=== PATIENT | female | born 1935 | race Caucasian/White ===

== ENCOUNTER → 2019-01-01 | Outpatient (CLI) | payer MEDICARE ==
--- NOTE | 2019-01-01 11:41 | CT ---
EXAMINATION TYPE: CT abdomen pelvis w con DATE OF EXAM: 01/01/2019 COMPARISON: None HISTORY: Constipation and weight loss. History of colon cancer CT DLP: 319.9 mGycm Automated exposure control for dose reduction was used. CONTRAST: CT scan of the abdomen pelvis is performed with IV Contrast, patient injected with 80 mL of Isovue 30 0. FINDINGS- LUNG BASES-bilateral lower lobe changes of bronchiectasis. Cardiomegaly noted. Small hiatal hernia se en.. Lower lobe pleural-based density likely postinflammatory. LIVER/GB- No gross abnormality is appreciated. PANCREAS- No gross abnormality is seen. SPLEEN- No gross abnormality is seen. ADRENALS- No gross abnormality is seen. KIDNEYS/BLADDER- no hydronephrosis nephrolithiasis or renal mass. BOWEL-within the pelvis there is a large area of soft tissue density and small amount of fluid on the right. This may be related to bowel wall thickening. Previous surgery in the region is noted. Could not exclude inflammatory or neoplastic process. Soft tissue fullness measures 5.2 cm. Less likely abs cess. Report called to referring clinician. LYMPH NODES-there is soft tissue fullness in the periaortic region on the left on image 21 suggestive of an possible area of lymphadenopathy measuring short axis of 1.3 cm.. OSSEOUS STRUCTURES-scoliosis with multilevel severe degenerative disc disease.. OTHER-changes of bronchiectasis at the lung bases. Chronic interstitial lung disease noted. Atheroscl erotic change of the aorta. No evidence of aneurysm. IMPRESSION- 1. There is a large soft tissue mass in the pelvis measuring 5.5 cm which likely represents severe wa ll thickening of either the cecum or sigmoid colon. There is central linear air which is why a thicke herberth wall is favored. Findings are suspicious for malignancy. 2. Postsurgical changes 3. Bilateral lower lobe interstitial lung disease and changes of bronchiectasis. 4. Significant amount of retained debris within the colon correlate for constipation.
== END | disposition home or self-care (01) ==
LOC: RADCTMAIN 09:11
PROVIDERS: ATTEND Physician Assistant
DX: M79.89 Other specified soft tissue disorders (principal); R63.4 Abnormal weight loss; D50.8 Other iron deficiency anemias; I10 Essential (primary) hypertension; Z85.038 Personal history of other malignant neoplasm of large intestine; Z98.890 Other specified postprocedural states; Z79.899 Other long term (current) drug therapy
CPT/HCPCS: 82565; 84520; 74177; 36415; Q9967

== ENCOUNTER 2019-01-13 08:35 | Day surgery (SDC) | payer MEDICARE ==
[2019-01-08 10:43] VITALS: BMI 17.3
[~2019-01-13 08:35] MED LIST: LACTATED RINGERS 1,000 ML IV SCH
[2019-01-13 09:01] VITALS: RESP 17; TEMP 97
[2019-01-13] MEDS ORDERED: LIDOCAINE 1% INJ 10MG/ML (20 ML MDV) ONE (10:42)
[2019-01-13] MEDS ORDERED: PROPOFOL 10 MG/ML 20 ML VIAL IV ONE (10:42)
--- NOTE | 2019-01-13 10:48 | P.GSHP ---
History of Present Illness H&P Date: 01/13/19 Chief Complaint: Pelvic mass, history of colon cancer This is a 83-year-old female who presents today for colonoscopy. Patient has a previous history of left colon cancer. The patient had low anterior section approximately 10 years ago. Her recent CAT scan shows a questionable mass in the office which could be arising from the cecum or left colon. She presents today for colonoscopy. Past Medical History Past Medical History: Cancer, COPD, CVA/TIA, Hyperlipidemia, Hypertension, Pneumonia Additional Past Medical History / Comment(s): colon ca 2007, skin cancer nose removed, osteoporosis. Skin cancer on chest as of now, states will have it removed soon. States recent CAT scan shows a mass on her colon. Uses oxygen @ home @ 2 L's. History of Any Multi-Drug Resistant Organisms: None Reported Past Surgical History: Bowel Resection, Tonsillectomy Additional Past Surgical History / Comment(s): cataract surgery bilat. Skin ca ncer removed from top of nose. Past Anesthesia/Blood Transfusion Reactions: No Reported Reaction Smoking Status: Former smoker - Past Family History Father Family Medical History: CVA/TIA Additional Family Medical History / Comment(s): AGE 89- HX TB Mother Additional Family Medical History / Comment(s): AT AGE 88 UNK CAUSE Medications and Allergies Home Medications Medication Instructions Recorded Confirmed Type Calcium Carbonate/Vitamin D3 1 tab PO BID 04/21/14 01/08/19 History [Caltrate 600 Plus D3 Tablet] Ergocalciferol [Vitamin D2 50,000 unit PO QMONTH 04/21/14 01/08/19 History (DRISDOL)] Lisinopril [Zestril] 2.5 mg PO DAILY 04/21/14 01/08/19 History Multivitamins, Thera [Multivitamin 1 tab PO DAILY 04/21/14 01/08/19 History (formulary)] Simvastatin [Zocor] 10 mg PO HS 04/21/14 01/08/19 History Aspirin EC [Ecotrin Low Dose] 81 mg PO DAILY #1 tablet. 04/22/14 01/08/19 Rx Allergies Allergy/AdvReac Type Severity Reaction Status Date / Time No Known Allergies Allergy Verified 01/13/19 09:05 Surgical - Exam Vital Signs Temp Pulse Resp BP Pulse Ox 97.0 F L 44 L 17 122/59 97 01/13/19 08:59 01/13/19 08:59 01/13/19 08:59 01/13/19 08:59 01/13/19 08:59 - General well developed, well nourished, no distress - Eyes PERRL - ENT normal pinna - Neck no masses - Respiratory normal expansion - Cardiovascular Rhythm: regular - Abdomen Abdomen: soft, non tender Assessment and Plan Assessment: History of colon cancer, questionable colonic mass, we'll perform colonoscopy.
--- NOTE | 2019-01-13 11:11 | P.OP ---
Date of Procedure: 01/13/19 Preoperative Diagnosis: History of colon cancer Postoperative Diagnosis: Diverticulosis No evidence of recurrent tumor Procedure(s) Performed: Colonoscopy Anesthesia: MAC Surgeon: Mak Colon Pathology: none sent Condition: stable Disposition: PACU Description of Procedure: The patient's placed in the lateral position. She received IV sedation. Digital rectal exam was performed which revealed a few external hemorrhoids. The colorectal anastomosis was palpated. There is no obvious mass in the rectum. This point the colonoscope was placed patient anus passed throughout the colon. There was a large amount of liquid stool in the right colon. The ileocecal valve was not clearly seen because of this. This point scope was withdrawn. The distal ascending colon hepatic flexure transverse colon appeared normal. There was a few scattered diverticula seen. In the descending colon there was no evidence of any tumors. The scope was then brought back through the colorectal anastomosis this appeared to be patent without any evidence of tumor. The scope was then brought back the rectum. This was normal. Scope was withdrawn for patient. Due to the patient's CAT scan finding of a possible pelvic mass a barium enema was ordered in order to evaluate the proximal right colon and cecum.
[2019-01-13 11:29] VITALS: BP 146/73; PULSE 70
--- NOTE | 2019-01-13 16:42 | XR ---
EXAMINATION TYPE: XR abdomen 1V 1306 hours, XR abdomen 1V at 1422 hours DATE OF EXAM: 01/13/2019 Comparison: Correlation CT 01/01/2019 Clinical History: 83-year-old female incomplete colonoscopy, referred for barium enema. Findings: At both time points, despite waiting after patient's morning release from colonoscopy, extensive colo faith air remains. There is a colorectal staple line from prior resection and re-anastomosis. Impression: Consecutive radiographs demonstrating persistent large amount of retained colonic air. Barium enema i s being deferred until there is time for gas to clear.
== END 2019-01-13 12:55 | disposition home or self-care (01) ==
LOC: ORWHC2ENDO 08:35
PROVIDERS: ATTEND Surgery
DX: K57.30 Diverticulosis of large intestine without perforation or abscess without bleeding (principal); E78.5 Hyperlipidemia, unspecified; I10 Essential (primary) hypertension; J44.9 Chronic obstructive pulmonary disease, unspecified; M81.0 Age-related osteoporosis without current pathological fracture; Z86.73 Personal history of transient ischemic attack (TIA), and cerebral infarction without residual deficits; Z87.891 Personal history of nicotine dependence; Z85.038 Personal history of other malignant neoplasm of large intestine; Z79.82 Long term (current) use of aspirin
CPT/HCPCS: 74018; 45378; J2001; J2704

== ENCOUNTER → 2019-01-14 | Outpatient (CLI) | payer MEDICARE ==
--- NOTE | 2019-01-14 10:26 | FL ---
EXAMINATION TYPE: FL barium enema DATE OF EXAM: 01/14/2019 CLINICAL HISTORY: Failed colonoscopy TECHNIQUE: A single contrast barium enema study is performed. COMPARISON: None. FINDINGS: Magazine Journalist view of the abdomen shows overall non-obstructive bowel gas pattern. The colon is ma rkedly redundant. No evidence of any mass or polyp, obstructing or constricting lesion throughout the colon. Sigmoidal diverticulosis without diverticulitis. The terminal ileum was refluxed and appears within normal limits. IMPRESSION: Sigmoid diverticulosis without diverticulitis. No obstructing mass or polypoid lesion shelton ntified.
== END | disposition home or self-care (01) ==
LOC: RADFLMAIN 08:17
PROVIDERS: ATTEND Surgery
DX: K57.30 Diverticulosis of large intestine without perforation or abscess without bleeding (principal)
CPT/HCPCS: 74270

== ENCOUNTER → 2019-02-23 | Outpatient (CLI) | payer MEDICARE ==
--- NOTE | 2019-02-23 13:20 | CT ---
EXAMINATION TYPE: CT abdomen pelvis w con DATE OF EXAM: 02/23/2019 COMPARISON: 01/01/2019 HISTORY: Diverticulosis CT DLP: 559 mGycm Automated exposure control for dose reduction was used. TECHNIQUE: Helical acquisition of images was performed from the lung bases through the pelvis. CONTRAST: Performed with Oral Contrast and with IV Contrast, patient injected with 80 mL of Isovue 300. FINDINGS: LUNG BASES: Re-demonstration of lower lobe bronchiectasis with reticular and nodular densities seen i n the bilateral lung bases, similar to slightly increased when compared to prior exam. Stable small h iatal hernia. Moderate cardiomegaly. LIVER/GB: Stable mild prominence of the common bile duct. Gallbladder appears normal. Liver appears n ormal. PANCREAS: No significant abnormality is seen. SPLEEN: No significant abnormality is seen. ADRENALS: No significant abnormality is seen. KIDNEYS: No significant abnormality is seen. URINARY BLADDER: Urinary bladder is mildly distended. PELVIC ADENOPATHY: None visualized. OSSEOUS STRUCTURES: Degenerative changes are seen throughout the lumbar spine. No acute fracture. BOWEL: Oral contrast is seen in the stomach and the small bowel. Multiple fluid-filled loops of ileu m are seen in the right lower quadrant without evidence of obstruction. Large amount of stool is annita ined within the colon. Previously seen conglomerate of soft tissue masses within the pelvis have decr eased in size with only a small amount of complex fluid or soft tissue remaining along the vesicorect al area and best seen on image 65. The area measures 1.2 x 4.7 cm in AP by transverse dimension. Ther e are postsurgical changes near the rectosigmoid junction, similar to prior. IMPRESSION: DECREASING SIZE OF SOFT TISSUE MASSES WITHIN THE PELVIS WITH RESIDUAL SOFT TISSUE SEEN SUPERIORLY TO THE RECTOSIGMOID JUNCTION NEAR THE POSTOPERATIVE SITE. WHILE THESE FINDINGS MAY BE ON THE BASIS OF RE SOLVING INFECTIOUS OR INFLAMMATORY PROCESS, NEOPLASTIC PROCESS REMAINS WITHIN THE DIFFERENTIAL. FURTH ER EVALUATION WITH DIRECT VISUALIZATION AND/OR PET SCAN SHOULD BE CONSIDERED. INCREASING INTERSTITIAL LUNG DISEASE AT THE BASES. CONSTIPATION.
== END | disposition home or self-care (01) ==
LOC: RADCTMAIN 10:05
PROVIDERS: ATTEND Surgery
DX: K59.00 Constipation, unspecified (principal); R19.09 Other intra-abdominal and pelvic swelling, mass and lump; Z98.890 Other specified postprocedural states
CPT/HCPCS: 36415; 74177; 82565; 84520

== ENCOUNTER 2019-04-26 00:57 | Observation (INO) | payer MEDICARE ==
--- NOTE | 2019-04-26 01:29 | ED ---
General Adult HPI - General Stated complaint: small bowel obstruction Time Seen by Provider: 04/26/19 00:58 - History of Present Illness Initial comments: Dictation was produced using hi5 dictation software. please excuse any grammatical, word or spelling errors. Chief Complaint: 83-year-old female transferred from [facility] for small bowel obstruction. History of Present Illness: 83-year-old female she was transferred via EMS from [facility] for concerns of small bowel obstruction. She initially presented to [facility] for abdominal pain and some nausea. She had a CT performed that showed moderately severe constipation versus partial mechanical small bowel obstruction. An evaluated bedside. She feels okay. She has pain in her bilateral lower abdominal area. She feels well and she has not had any episodes of emesis. Patient reports that she has had a history of abdominal pain for approximately 2 weeks prior to being evaluated at [facility]. She does have history of constipation. Patient has been evaluated by Dr. Colon in the past The ROS documented in this emergency department record has been reviewed and confirmed by me. Those systems with pertinent positive or negative responses have been documented in the HPI. All other systems are other negative and/or noncontributory. PHYSICAL EXAM: General Impression: Alert and oriented x3, not in acute distress HEENT: Normocephalic atraumatic, extra-ocular movements intact, pupils equal and reactive to light bilaterally, mucous membranes moist. Cardiovascular: Heart regular rate and rhythm, S1&S2 audible, no murmurs, rubs or gallops Chest: Lungs clear to auscultation bilaterally, no rhonchi, no wheeze, no rales Abdomen: Bowel sounds present, abdomen soft, diffuse abdominal tenderness, non- distended, no organomegaly Musculoskeletal: Pulses present and equal in all extremities, no peripheral edema Motor: no focal deficits noted Neurological: CN II-XII grossly intact, no focal motor or sensory deficits noted Skin: Intact with no visualized rashes Psych: Normal affect and mood ED course: 58-year-old female transferred from [facility] for bowel obstruction. She and evaluated bedside. She is well-appearing. She does not appear to be in acute distress. She does not have any significant nausea. Abdomen is soft with minimal tenderness to the lower abdominal area. Transfer recommendation was reviewed in its entirety.Vital signs on arrival are unremarkable. Patient's well-appearing. Patient be admitted. Patient be admitted to medicine with general surgeon on consult. - Related Data Home Medications Medication Instructions Recorded Confirmed Calcium Carbonate/Vitamin D3 1 tab PO BID 04/21/14 01/08/19 [Caltrate 600 Plus D3 Tablet] Ergocalciferol [Vitamin D2 50,000 unit PO QMONTH 04/21/14 01/08/19 (DRISDOL)] Lisinopril [Zestril] 2.5 mg PO DAILY 04/21/14 01/08/19 Multivitamins, Thera [Multivitamin 1 tab PO DAILY 04/21/14 01/08/19 (formulary)] Simvastatin [Zocor] 10 mg PO HS 04/21/14 01/08/19 Previous Rx's Medication Instructions Recorded Aspirin EC [Ecotrin Low Dose] 81 mg PO DAILY #1 tablet. 04/22/14 Allergies Allergy/AdvReac Type Severity Reaction Status Date / Time No Known Allergies Allergy Verified 01/13/19 09:05 Review of Systems ROS Statement: Those systems with pertinent positive or pertinent negative responses have been documented in the HPI. ROS Other: All systems not noted in ROS Statement are negative. Past Medical History Past Medical History: Cancer, COPD, CVA/TIA, Hyperlipidemia, Hypertension, P neumonia Additional Past Medical History / Comment(s): colon ca 2007, skin cancer nose removed, osteoporosis. Skin cancer on chest as of now, states will have it removed soon. States recent CAT scan shows a mass on her colon. Uses oxygen @ home @ 2 L's. History of Any Multi-Drug Resistant Organisms: None Reported Past Surgical History: Bowel Resection, Tonsillectomy Additional Past Surgical History / Comment(s): cataract surgery bilat. Skin cancer removed from top of nose. Past Anesthesia/Blood Transfusion Reactions: No Reported Reaction Smoking Status: Former smoker - Past Family History Father Family Medical History: CVA/TIA Additional Family Medical History / Comment(s): AGE 89- HX TB Mother Additional Family Medical History / Comment(s): AT AGE 88 UNK CAUSE Course Vital Signs 04/26/19 01:36 Temperature 97.9 F Pulse Rate 74 Respiratory 18 Rate Blood Pressure 136/67 O2 Sat by Pulse 98 Oximetry Disposition Clinical Impression: Bowel obstruction Disposition: ADMITTED IP TO THIS HOSP Condition: Fair Referrals: Elvin Bell MD [Primary Care Provider] - 1-2 days Decision Time: 01:56
[2019-04-26] MEDS ORDERED: NALOXONE 0.4 MG/ML 1 ML VIAL IV PRN (01:56)
[2019-04-26] MEDS: SODIUM CHLORIDE 0.9% 1,000 ML IV SCH ×2 (02:28→19:23)
--- NOTE | 2019-04-26 10:24 | P.GSCN ---
History of Present Illness Consult date: 04/26/19 History of present illness: CHIEF COMPLAINT: Bowel obstruction HISTORY OF PRESENT ILLNESS: The patient is a 83 year old female transferred from [place] for small bowel obstruction. She reports passing flatus and having bowel movements. She has history of chronic constipation. She denies abdominal pain. Last colonoscopy was within 3 months. She reports nausea. No fevers or chills. She had emesis. She is passing some flatus. PAST MEDICAL HISTORY: See list. PAST SURGICAL HISTORY: See list. MEDICATIONS: See list. ALLERGIES: See list. SOCIAL HISTORY: See list. FAMILY HISTORY: See list. REVIEW OF ORGAN SYSTEMS: CONSTITUTIONAL: No fevers or chills. EYES: Denies any trouble with vision. No glasses. HEENT: No difficulties with hearing. No nosebleeds. No difficulty swallowing. RESPIRATORY: Denies pneumonia. Denies any troubles with breathing or dyspnea on exertion. CARDIOVASCULAR: No chest pain, palpitations, or recent heart attacks. GASTROINTESTINAL: Denies fatty food intolerance. Has change in bowel habits and gas bloat. GENITOURINARY: Past blood in urine or increased urinary frequency. NEUROLOGICAL: Denies any numbness or tingling along the distal extremities. No seizure disorders or headaches. MUSCULOSKELETAL: Has back pain, stiffness or joint arthritis. SKIN: No current skin cancer. No rash. PSYCHIATRIC: Denies current depression or suicidal thoughts. ENDOCRINE: Denies current thyroid disorders. Denies any blood sugar glucose intolerance. HEME/LYMPHATIC: Denies any lumps and bumps around the neck. No recent deep venous thrombosis. ALLERGY/IMMUNOLOGY: No immunoglobulin therapy. No immune deficiencies. BREAST: Denies current breast lumps, pain or nipple discharge. PHYSICAL EXAM: VITALS: Reviewed CONSTITUTIONAL: Well developed and in no acute distress. EYES: Conjuctivae without sclera icterus. Pupils are equally round and reactive to light. Extraocular movements grossly intact. HEAD, EARS, NOSE, THROAT: Moist buccal mucosa. Head is atraumatic, normocephalic. Hears conversational speech. No nasal drainage. NECK: Supple. No JV distention. No thyroidomegaly. RESPIRATORY: Non-labored respirations and equal bilateral excursions. No gross wheezes. CARDIOVASCULAR: Palpable 2+ radial pulses. ABDOMEN: Soft, scaphoid, nontender. Nondistended. LYMPH: No neck lymphadenopathy. No axillary lymphadenopathy. MUSCULOSKELETAL: Nail and fingers with good capillary refill. SKIN: Warm and well perfused with good skin turgor. NEUROLOGIC: Cranial nerves I through XII grossly intact. Sensation upper and extremities intact. No focal or lateralizing signs. PSYCH: Appropriate affect. Alert and oriented to person, place and time. Displays appropriate insight. CLINCAL LABS: None present MEDICAL TEST: Endoscopy reviewed without recurrent colon mass per colonoscopy within last 3 months. RECORDS: previous old records reviewed with chronic constipation and history of colon cancer. STUDIES: Independent review of outside CT scan and CT scan of the abdomen 3 months ago confirms severe constipation. No significant small bowel dilation. Moderate retained stool throughout. No free air. This is my personal interpretation. ASSESSMENT: 1. Chronic constipation 2. Past history of small bowel obstruction PLAN: 1. Start liquid diet. 2. Will need combination of enemas and laxative for severe constipation 3. Recommend AXR for baseline prior to bowel regimen. Thank you for this kind consultation. Past Medical History Past Medical History: Cancer, COPD, CVA/TIA, Hyperlipidemia, Hypertension, Pneumonia Additional Past Medical History / Comment(s): colon ca 2007, skin cancer nose removed, osteoporosis. Skin cancer on chest removed 2019, States recent CAT scan shows a mass on her colon. Uses oxygen @ home @ 2 L's. History of Any Multi-Drug Resistant Organisms: None Reported Past Surgical History: Bowel Resection, Tonsillectomy Additional Past Surgical History / Comment(s): cataract surgery bilat. Skin cancer removed from top of nose. Past Anesthesia/Blood Transfusion Reactions: No Reported Reaction Past Psychological History: No Psychological Hx Reported Smoking Status: Former smoker Past Alcohol Use History: None Reported Additional Past Alcohol Use History / Comment(s): Started smoking at age 23, smoked 1ppd, quit 10 years ago. Past Drug Use History: None Reported - Past Family History Father Family Medical History: CVA/TIA Additional Family Medical History / Comment(s): AGE 89- HX TB Mother Additional Family Medical History / Comment(s): AT AGE 88 UNK CAUSE Medications and Allergies Home Medications Medication Instructions Recorded Confirmed Type Calcium Carbonate/Vitamin D3 1 tab PO BID 04/21/14 04/26/19 History [Caltrate 600 Plus D3 Tablet] Ergocalciferol [Vitamin D2 50,000 unit PO QMONTH 04/21/14 04/26/19 History (DRISDOL)] Lisinopril [Zestril] 2.5 mg PO DAILY 04/21/14 04/26/19 History Multivitamins, Thera [Multivitamin 1 tab PO DAILY 04/21/14 04/26/19 History (formulary)] Simvastatin [Zocor] 10 mg PO HS 04/21/14 04/26/19 History Aspirin EC [Ecotrin Low Dose] 81 mg PO DAILY #1 tablet. 04/22/14 04/26/19 Rx Allergies Allergy/AdvReac Type Severity Reaction Status Date / Time No Known Allergies Allergy Verified 04/26/19 07:58 Surgical - Exam Vital Signs Temp Pulse Resp BP Pulse Ox 97.9 F 74 18 136/67 98 04/26/19 01:36 04/26/19 01:36 04/26/19 01:36 04/26/19 01:36 04/26/19 01:36 Assessment and Plan (1) Bowel obstruction Current Visit: Yes Status: Acute Code(s): K56.609 - UNSP INTESTNL OBST, UNSP TO PARTIAL VERSUS COMPLETE OBST SNOMED Code(s): 85380393
[2019-04-26] MEDS ORDERED: ONDANSETRON 4 MG/2 ML VIAL IVP PRN (10:27)
--- NOTE | 2019-04-26 10:53 | XR ---
EXAMINATION TYPE: XR abdomen 2V , 3 VIEWS DATE OF EXAM ORDERED: 04/26/2019 HISTORY: bowel obstruction. COMPARISON: Previous study dated 09/18/2018. FINDINGS: The lung bases are clear. Heart size upper limits of normal. There is an S-shaped scoliosi s convex to the left in the thoracic region and to the right lumbar region. The abdominal gas pattern is within normal limits. There is no evidence of obstruction or free air. T here is contrast within the bladder from a recent CT scan. There is some stippled calcification in th e left hemipelvis which likely represents fibroid change or residual barium.. IMPRESSION: 1. NONOBSTRUCTIVE BOWEL GAS PATTERN. 2. MODERATELY SEVERE DEGENERATIVE CHANGES WITHIN THE SPINE.
[2019-04-26] MEDS: MAGNESIUM HYDROXIDE 2,400 MG/10 ML CUP PO SCH ×2 (10:55→21:09)
[2019-04-26 12:01] VITALS: BMI 17.8
[2019-04-26] MEDS: CALCIUM CARB-VIT D 500MG-200UN 1 EACH TAB PO SCH (21:09)
[2019-04-26] MEDS: ATORVASTATIN 10 MG TAB PO SCH (21:09)
[2019-04-26] MEDS: ACETAMINOPHEN TAB 325 MG TAB PO PRN (21:10)
--- NOTE | 2019-04-26 22:46 | P.HPIM ---
History of Present Illness H&P Date: 04/26/19 Chief Complaint: Transferred from [facility] for small bowel obstruction Ms. Escobar is an 83-year-old female with a past medical history of hypertension, hyperlipidemia, skin cancer of the nose removed, COPD, CVA/TIA transferred from [facility] for concerns of small bowel obstruction. Patient initially presented to [facility] for nausea and abdominal pain. Patient has history of chronic constipation. She had a CAT scan performed at that facility showing severe constipation versus partial small bowel obstruction and so transferred here. She was admitted through the ER. Since admission patient did not have any vomiting. Surgical consult was placed. Overnight no acute issues reported by the nursing staff. At the time of my evaluation the patient had a bowel movement and she was complaining of mild lower abdominal discomfort. She states that she had a dark-colored bowel movement. Denied having any blood in her stool. Review of Systems REVIEW OF SYSTEMS: PSYCH: No anxiety or depression NEURO:No c/o weakness of the extremties, No facial droop, No speech abnormalities. VASCULAR: Peripheral nervous system within the normal limits no edema HEMATOLOGIC: No history of easy bleeding and bruising . No recent infections . RESPIRATORY: No cough, No SOB, No chest discomfort. IMMUNE: No infections INTEGUMENT: no rashes OPHTHALMOLOGIC: No blurry vision and no eye discharge : No dysuria or hematuria LENS HARDENER: No bleeding PV CARDIAC: No chest pain , shortness of breath , paroxysmal nocturnal dyspnea MUSCULOSKELETAL : No Aches or pains in the joints or muscles. GI: As per HPI. Past Medical History Past Medical History: Cancer, COPD, CVA/TIA, Hyperlipidemia, Hypertension, Pneumonia Additional Past Medical History / Comment(s): colon ca 2007, skin cancer nose removed, osteoporosis. Skin cancer on chest removed 2019, States recent CAT scan shows a mass on her colon. Uses oxygen @ home @ 2 L's. History of Any Multi-Drug Resistant Organisms: None Reported Past Surgical History: Bowel Resection, Tonsillectomy Additional Past Surgical History / Comment(s): cataract surgery bilat. Skin cancer removed from top of nose. Past Anesthesia/Blood Transfusion Reactions: No Reported Reaction Past Psychological History: No Psychological Hx Reported Smoking Status: Former smoker Past Alcohol Use History: None Reported Additional Past Alcohol Use History / Comment(s): Started smoking at age 23, smoked 1ppd, quit 10 years ago. Past Drug Use History: None Reported - Past Family History Father Family Medical History: CVA/TIA Additional Family Medical History / Comment(s): AGE 89- HX TB Mother Additional Family Medical History / Comment(s): AT AGE 88 UNK CAUSE Medications and Allergies Home Medications Medication Instructions Recorded Confirmed Type Calcium Carbonate/Vitamin D3 1 tab PO BID 04/21/14 04/26/19 History [Caltrate 600 Plus D3 Tablet] Ergocalciferol [Vitamin D2 50,000 unit PO QMONTH 04/21/14 04/26/19 History (DRISDOL)] Lisinopril [Zestril] 2.5 mg PO DAILY 04/21/14 04/26/19 History Multivitamins, Thera [Multivitamin 1 tab PO DAILY 04/21/14 04/26/19 History (formulary)] Simvastatin [Zocor] 10 mg PO HS 04/21/14 04/26/19 History Aspirin EC [Ecotrin Low Dose] 81 mg PO DAILY #1 tablet. 04/22/14 04/26/19 Rx Allergies Allergy/AdvReac Type Severity Reaction Status Date / Time No Known Allergies Allergy Verified 04/26/19 07:58 Physical Exam Vitals: Vital Signs Temp Pulse Pulse Resp BP BP Pulse Ox 04/26/19 15:00 97.6 F 77 16 168/75 97 04/26/19 07:00 97.8 F 68 16 107/56 100 04/26/19 03:04 98.4 F 77 16 135/76 97 04/26/19 02:24 77 18 133/64 100 04/26/19 01:36 97.9 F 74 18 136/67 98 Intake and Output 04/26/19 04/26/19 04/26/19 06:59 14:59 22:59 Intake Total 0 Balance 0 Intake: Oral 0 Other: Voiding Method Toilet # Voids 1 2 Weight 47.174 kg 47.174 kg GEN. APPEARANCE: elderly female lying in bed HEENT - No pallor, No icterus . No JVD. RESPIRATORY EXAM: normal lung sounds bilaterally. No wheeze or crackles. CARDIOVASCULAR EXAM: Normal heart sounds. GI/ABDOMINAL EXAM: soft, hyperactive bowel sounds. Mild diffuse tenderness in lower quadrants EXTREMITIES EXAM: No edema NEUROLOGICAL EXAM: alert, oriented X3, no focal deficits SKIN EXAM: warm, dry, intact, normal color. Thrombosis Risk Factor Assmnt - Choose All That Apply Any of the Below Risk Factors Present?: No Other Risk Factors: No Each Risk Factor Represents 3 Points: Age 75 years or older Other congenital or acquired thrombophilia - If yes, enter type in comment: No Thrombosis Risk Factor Assessment Total Risk Factor Score: 3 Thrombosis Risk Factor Assessment Level: Very Low Risk Assessment and Plan Assessment: ASSESSMENT Partial small bowel obstruction Chronic constipation Hypertension Hyperlipidemia History of colon cancer in 2007 Skin cancer of the nose status post removal Osteoporosis History of CVA/TIA PLAN: Patient was sent in for suspicion of small bowel obstruction. Patient just had a bowel movement. Patient has been restarted on all her home medications. Further recommendations to follow depending on the progress of the patient.
[2019-04-26 23:34] LABS: Basophils # (A) 0.1 k/uL (0-0.2); Basophils % (A) 1 %; Eosinophils # (A) 0.1 k/uL (0-0.7); Eosinophils % (A) 1 %; HCT 33.9 % (34.0-46.0); HGB 9.9 gm/dL (11.4-16.0); Hypochromasia Moderate; Lymphocytes % (A) 14 %; MCH 25.9 pg (25.0-35.0); MCHC 29.3 g/dL (31.0-37.0); MCV 88.5 fL (80.0-100.0); Mean Platelet Volume 5.8; Monocytes # (A) 0.4 k/uL (0-1.0); Monocytes % (A) 6 %; Neutrophils # (A) 5.4 k/uL (1.3-7.7); Neutrophils % (A) 76 %; Platelet Count 353 k/uL (150-450); RBC 3.83 m/uL (3.80-5.40); RDW 13.5 % (11.5-15.5)
[2019-04-26 23:46] LABS: Calcium 9.2 mg/dL (8.4-10.2); Potassium 4.9 mmol/L (3.5-5.1)
[2019-04-27] MEDS: SODIUM CHLORIDE 0.9% 1,000 ML IV SCH ×2 (04:13→14:38)
[2019-04-27] MEDS: MAGNESIUM HYDROXIDE 2,400 MG/10 ML CUP PO SCH ×2 (08:07→21:13)
[2019-04-27] MEDS: CALCIUM CARB-VIT D 500MG-200UN 1 EACH TAB PO SCH ×2 (08:07→21:13)
[2019-04-27] MEDS: MULTIVITAMINS, THERA 1 EACH TAB PO SCH (08:07)
[2019-04-27] MEDS: ASPIRIN 81 MG PO SCH (08:07)
[2019-04-27] MEDS: LISINOPRIL 2.5 MG TAB PO SCH (08:07)
--- NOTE | 2019-04-27 15:03 | P.PN ---
Subjective Progress Note Date: 04/27/19 CHIEF COMPLAINT: Constipation HISTORY OF PRESENT ILLNESS: Patient seen and examined at the bedside. She is tolerating diet. She reports having multiple bowel movements. She does report having some increased pain this afternoon upon reexamination with Dr. Colon. PHYSICAL EXAM: VITAL SIGNS: Reviewed. GENERAL: Well-developed in no acute distress. HEENT: No sclera icterus. Extraocular movements grossly intact. Moist buccal mucosa. Head is atraumatic, normocephalic. ABDOMEN: Soft. Nondistended. Nontender. NEUROLOGIC: Alert and oriented. Cranial nerves II through XII grossly intact. ASSESSMENT: 1. Chronic constipation PLAN: 1. Continue diet as tolerated. 2. Dr. Colon recommends holding discharge today and reevaluating tomorrow. Possible discharge home tomorrow. Nurse practitioner note has been reviewed by physician. Signing provider agrees with the documented findings, assessment, and plan of care. Objective - Vital Signs Vital signs: Vital Signs Temp 98.2 F 04/27/19 07:00 Pulse 67 04/27/19 07:00 Resp 17 04/27/19 07:00 BP 125/81 04/27/19 07:00 Pulse Ox 91 L 04/27/19 08:19 Intake & Output 04/26/19 04/27/19 04/27/19 18:59 06:59 18:59 Intake Total 1158 Balance 1158 Weight 47.174 kg Intake: IV 640 Sodium Chloride 0.9% 1, 640 000 ml @ 80 mls/hr IV . [id number] [facility] Rx#:[id number] Oral 518 Other: Voiding Method Toilet Toilet # Voids 2 1 # Bowel Movements 1 - Labs CBC & Chem 7: 04/26/19 23:23 04/26/19 23:23 Labs: Abnormal Lab Results - Last 24 Hours (Table) 04/26/19 04/26/19 Range/Units 23:23 23:23 Hgb 9.9 L (11.4-16.0) gm/dL Hct 33.9 L (34.0-46.0) % MCHC 29.3 L (31.0-37.0) g/dL Carbon Dioxide 35 H (22-30) mmol/L Glucose 102 H (74-99) mg/dL
[2019-04-27] MEDS: ACETAMINOPHEN TAB 325 MG TAB PO PRN (15:32)
--- NOTE | 2019-04-27 17:32 | P.PN ---
Subjective Progress Note Date: 04/27/19 Principal diagnosis: Partial small bowel obstruction/ chronic constipation Ms. Escobar is an 83-year-old female with a past medical history of hypertension, hyperlipidemia, skin cancer of the nose removed, COPD, CVA/TIA transferred from [facility] for concerns of small bowel obstruction. Patient initially presented to [facility] for nausea and abdominal pain. Patient has history of chronic constipation. She had a CAT scan performed at that facility showing severe constipation versus partial small bowel obstruction and so transferred here. She was admitted through the ER. Since admission patient did not have any vomiting. Surgical consult was placed. Patient was started on a bowel regimen and she had a small bowel movement yeste rday. This morning she still continues to have mild abdominal discomfort. Denies having any nausea or vomiting. She has been passing flatus. Patient's vitals have been stable over the past 24 hours and her labs from this morning show a hemoglobin of 9.9 and her electrolytes are within normal limits. Patient denies having any chest pain or palpitations. She denies having any difficulty in breathing and she is on 2 L of oxygen at home and has been stable on it now. Active Medications Acetaminophen (Tylenol Tab) 650 mg PO Q4HR PRN PRN Reason: Fever and/ or Pain Last Admin: 04/27/19 15:32 Dose: 650 mg Documented by: Aspirin (Aspirin) 81 mg PO DAILY [facility] Last Admin: 04/27/19 08:07 Dose: 81 mg Documented by: Atorvastatin Calcium (Lipitor) 10 mg PO HS [facility] Last Admin: 04/26/19 21:09 Dose: 10 mg Documented by: Calcium Carbonate (Oscal 500+D) 1 each PO BID [facility] Last Admin: 04/27/19 08:07 Dose: 1 each Documented by: Ergocalciferol (Vitamin D2) 50,000 unit PO QMONTH [facility] Sodium Chloride (Saline 0.9%) 1,000 mls @ 80 mls/hr IV .[id number] [facility] Last Admin: 04/27/19 14:38 Dose: 80 mls/hr Documented by: Lisinopril (Zestril) 2.5 mg PO DAILY [facility] Last Admin: 04/27/19 08:07 Dose: 2.5 mg Documented by: Magnesium Hydroxide (Milk Of Magnesia) 2,400 mg PO BID [facility] Last Admin: 04/27/19 08:07 Dose: 2,400 mg Documented by: Multivitamins (Theragran) 1 each PO DAILY [facility] Last Admin: 04/27/19 08:07 Dose: 1 each Documented by: Naloxone HCl (Narcan) 0.2 mg IV Q2M PRN PRN Reason: Opioid Reversal Ondansetron HCl (Zofran) 4 mg IVP Q6HR PRN PRN Reason: Nausea Last Admin: 04/26/19 14:38 Dose: 4 mg Documented by: Objective - Vital Signs Vital signs: Vital Signs Temp 98.0 F 04/27/19 14:51 Pulse 73 04/27/19 14:51 Resp 18 04/27/19 14:51 BP 123/61 04/27/19 14:51 Pulse Ox 96 04/27/19 14:51 Intake & Output 04/26/19 04/27/19 04/27/19 18:59 06:59 18:59 Intake Total 1158 Balance 1158 Weight 47.174 kg Intake: IV 640 Sodium Chloride 0.9% 1, 640 000 ml @ 80 mls/hr IV . [id number] [facility] Rx#:[id number] Oral 518 Other: Voiding Method Toilet Toilet # Voids 2 1 # Bowel Movements 1 - Exam GEN. APPEARANCE: elderly female lying in bed HEENT - No pallor, No icterus . No JVD. RESPIRATORY EXAM: normal lung sounds bilaterally. No wheeze or crackles. CARDIOVASCULAR EXAM: Normal heart sounds. GI/ABDOMINAL EXAM: soft, hypoactive bowel sounds. Mild diffuse tenderness in lower quadrants EXTREMITIES EXAM: No edema NEUROLOGICAL EXAM: alert, oriented X3, no focal deficits SKIN EXAM: warm, dry, intact, normal color. - Labs CBC & Chem 7: 04/26/19 23:23 04/26/19 23:23 Labs: Abnormal Lab Results - Last 24 Hours (Table) 04/26/19 04/26/19 Range/Units 23:23 23:23 Hgb 9.9 L (11.4-16.0) gm/dL Hct 33.9 L (34.0-46.0) % MCHC 29.3 L (31.0-37.0) g/dL Carbon Dioxide 35 H (22-30) mmol/L Glucose 102 H (74-99) mg/dL Assessment and Plan Assessment: ASSESSMENT Partial small bowel obstruction/Chronic constipation Hypertension Hyperlipidemia History of colon cancer in 2007 Skin cancer of the nose status post removal Osteoporosis History of CVA/TIA PLAN: Patient had a small bowel movement yesterday. She still has some abdominal discomfort, so surgery recommended reevaluation tomorrow. Patient has been restarted on all her home medications that are being continued. Further r ecommendations to follow depending on the progress of the patient. Anticipate discharge in the next 24 hours.
[2019-04-27] MEDS: ATORVASTATIN 10 MG TAB PO SCH (21:13)
[2019-04-28] MEDS: SODIUM CHLORIDE 0.9% 1,000 ML IV SCH ×2 (05:32→08:16)
[2019-04-28 06:40] LABS: Basophils % (A) 0 %; Eosinophils # (A) 0.1 k/uL (0-0.7); Eosinophils % (A) 1 %; HCT 33.6 % (34.0-46.0); Hypochromasia Marked; Lymphocytes # (A) 1.1 k/uL (1.0-4.8); Lymphocytes % (A) 13 %; MCH 26.6 pg (25.0-35.0); MCHC 29.6 g/dL (31.0-37.0); MCV 89.8 fL (80.0-100.0); Monocytes # (A) 0.5 k/uL (0-1.0); Monocytes % (A) 5 %; Neutrophils % (A) 79 %; Platelet Count 350 k/uL (150-450); RBC 3.74 m/uL (3.80-5.40); RDW 13.5 % (11.5-15.5); WBC 8.9 k/uL (3.8-10.6)
[2019-04-28] MEDS: MULTIVITAMINS, THERA 1 EACH TAB PO SCH (08:15)
[2019-04-28] MEDS: CALCIUM CARB-VIT D 500MG-200UN 1 EACH TAB PO SCH ×2 (08:15→21:49)
[2019-04-28] MEDS: ASPIRIN 81 MG PO SCH (08:15)
[2019-04-28] MEDS: LISINOPRIL 2.5 MG TAB PO SCH (08:15)
[2019-04-28] MEDS: MAGNESIUM HYDROXIDE 2,400 MG/10 ML CUP PO SCH ×2 (08:15→21:49)
[2019-04-28] MEDS: IOPAMIDOL CONTRAST (ORAL USE) VIAL PO PRN ×2 (10:02→11:00)
--- NOTE | 2019-04-28 11:58 | P.PN ---
Subjective Progress Note Date: 04/28/19 CHIEF COMPLAINT: Constipation HISTORY OF PRESENT ILLNESS: Patient seen and examined at the bedside. She is tolerating diet. She reports having bowel movements. Pain has improved since yesterday PHYSICAL EXAM: VITAL SIGNS: Reviewed. GENERAL: Well-developed in no acute distress. HEENT: No sclera icterus. Extraocular movements grossly intact. Moist buccal mucosa. Head is atraumatic, normocephalic. ABDOMEN: Soft. Nondistended. Nontender. NEUROLOGIC: Alert and oriented. Cranial nerves II through XII grossly intact. ASSESSMENT: 1. Chronic constipation PLAN: 1. Continue diet as tolerated. 2. Dr. Colon recommends CT abdomen pelvis with oral contrast due to patients history of obstruction and chronic constipation Nurse practitioner note has been reviewed by physician. Signing provider agrees with the documented findings, assessment, and plan of care. Objective - Vital Signs Vital signs: Vital Signs Temp 97.6 F 04/28/19 07:00 Pulse 75 04/28/19 07:00 Resp 18 04/28/19 07:00 BP 131/71 04/28/19 07:00 Pulse Ox 96 04/28/19 07:00 Intake & Output 04/27/19 04/28/19 04/28/19 18:59 06:59 18:59 Intake Total 1158 480 118 Balance 1158 480 118 Intake: IV 640 480 Sodium Chloride 0.9% 1, 640 480 000 ml @ 80 mls/hr IV . [id number] [facility] Rx#:[id number] Oral 518 118 Other: Voiding Method Toilet Toilet Toilet # Voids 1 1 # Bowel Movements 1 1 - Labs CBC & Chem 7: 04/28/19 06:08 04/26/19 23:23 Labs: Abnormal Lab Results - Last 24 Hours (Table) 04/28/19 Range/Units 06:08 RBC 3.74 L (3.80-5.40) m/uL Hgb 10.0 L (11.4-16.0) gm/dL Hct 33.6 L (34.0-46.0) % MCHC 29.6 L (31.0-37.0) g/dL
--- NOTE | 2019-04-28 14:19 | CT ---
EXAMINATION TYPE: CT abdomen pelvis wo con DATE OF EXAM: 04/28/2019 COMPARISON: CT 02/23/2019, 04/25/2019 HISTORY: constipation CT DLP: 320.8 mGycm Automated exposure control for dose reduction was used. TECHNIQUE: Helical acquisition of images from the lung bases through the pelvis. FINDINGS: LUNG BASES: No significant change is appreciated. Suspect there may be mucus plugging present, extens tam right lower lobe bronchiectasis suspected, possibly some mild inflammatory change or scarring antolin ng the left hemidiaphragm, no pleural or pericardial effusion. There is a sizable hiatal hernia prese nt. Lack of intravenous contrast could compromise sensitivity. Coronary artery calcifications are pre sent. AORTA: No significant abnormality is appreciated. LIVER/GB: No significant abnormality is appreciated. PANCREAS: No significant abnormality is seen. SPLEEN: No significant abnormality is seen. ADRENALS: No significant abnormality is seen. KIDNEYS: No significant abnormality is seen. REPRODUCTIVE ORGANS: No significant abnormality is seen. URINARY BLADDER: No significant abnormality is seen. BOWEL: There is extensive retained fecal debris present throughout the distribution of the colon. Po stop changes are noted at the rectosigmoid junction, there is abnormal increased soft tissue at this level. Difficult to exclude a mucosal or annular lesion. FREE AIR: No Free Air is visible. ASCITES: None visible. PELVIC ADENOPATHY: None visualized. RETROPERITONEAL ADENOPATHY: No Retroperitoneal Adenopathy visible. OSSEOUS STRUCTURES: There is a marked scoliosis. Multilevel degenerative disc disease, facet arthrop athy changes present. IMPRESSION: FINDINGS SUGGEST DISTAL COLONIC OBSTRUCTION, MARKED FECAL RETENTION. PROBABLE BRONCHIECTASIS IN RETAI PRASANTH SECRETIONS IN THE RIGHT LOWER LOBE. NONCONTRAST EXAM.
[2019-04-28] MEDS ORDERED: IPRATROPIUM-ALBUTEROL 3 ML NEB INHALATION PRN (14:56)
[2019-04-28] MEDS ORDERED: SENNOSIDES 8.6 MG TAB PO PRN (14:57)
--- NOTE | 2019-04-28 15:03 | CDI ---
Documentation Clarification Form Date: 04/28/2019 2:51:49 PM From: Meghan Underwood RN CCDS Admit Date: 04/26/2019 1:56:00 AM Patient Name: Nina Escobar Visit Number: [id number] Discharge Date: ATTENTION: The Clinical Documentation Specialists (CDI) and [facility] Coding Staff appreciate your assistance in clarifying documentation. Please respond to the clarification below the line at the bottom and electronically sign. The CDI & [facility] Coding staff will review the response and follow-up if needed. Please note: Queries are made part of the Legal Health Record. If you have any questions, please contact the author of this message via ITS. Dr. Toña Thibodeaux Per your Progress note 04/27/2019 She denies having any difficulty in breathing and she is on 2L oxygen at home and has been stable on it now. History/Risk Factors: 83-year-old female presents to ED as a Transfer from [facility] for abdominal pain with small bowel obstruction. Medical History COPD Tobacco use: Started smoking at age 23, smoked 1pp, quit 10 years ago Home oxygen: 2L Clinical Indicators: Vital signs:04/27/2019 123/61 73 98.0 18 96% 2L Lung/Breathing assessment: 04/27/2019 breathing assessment Normal lung sounds bilaterally. No wheeze or crackles. Treatment: 2L Oxygen via nasal cannula In your professional opinion, can you please clarify if these findings signify one of the following conditions? * Chronic Respiratory Failure * Other Diagnosis, please specify * Unable to determine (Last Query Form Revision: March 2019) Chronic Respiratory Failure MTDD
[2019-04-28] MEDS: IPRATROPIUM-ALBUTEROL 3 ML NEB INHALATION SCH ×2 (16:14→20:47)
--- NOTE | 2019-04-28 17:31 | P.PN ---
Subjective 83-year-old female with a past medical history of hypertension, hyperlipidemia, skin cancer of the nose removed, COPD, CVA/TIA transferred from [facility] for concerns of small bowel obstruction. Patient initially presented to [facility] for nausea and abdominal pain. Patient has history of chronic constipation. She had a CAT scan performed at that facility showing severe constipation versus partial small bowel obstruction and so transferred here. She was admitted through the ER. Since admission patient did not have any vomiting. Surgical consult was placed. Patient was started on a bowel regimen and she had a small bowel movement yesterday. This morning she still continues to have mild abdominal discomfort. Denies having any nausea or vomiting. She has been passing flatus. Patient's vitals have been stable over the past 24 hours and her labs from this morning show a hemoglobin of 9.9 and her electrolytes are within normal limits. Patient denies having any chest pain or palpitations. She denies having any difficulty in breathing and she is on 2 L of oxygen at home and has been stable on it now. 04/28/2019 Patient was started on diet clear liquid patient does have bowel sounds had a small bowel movement no nausea no vomiting. Patient appears to have constipation will use and now for that. Objective - Vital Signs Vital signs: Vital Signs Temp 98.0 F 04/28/19 15:00 Pulse 78 04/28/19 16:26 Resp 17 04/28/19 15:00 BP 123/84 04/28/19 15:00 Pulse Ox 98 04/28/19 15:00 Intake & Output 04/27/19 04/28/19 04/28/19 18:59 06:59 18:59 Intake Total 1158 480 118 Balance 1158 480 118 Intake: IV 640 480 Sodium Chloride 0.9% 1, 640 480 000 ml @ 80 mls/hr IV . [id number] [facility] Rx#:[id number] Oral 518 118 Other: Voiding Method Toilet Toilet Toilet # Voids 1 1 # Bowel Movements 1 1 - Exam PHYSICAL EXAMINATION: GENERAL: The patient is alert and oriented x3, not in any acute distress. 11 built elderly female HEENT: Pupils are round and equally reacting to light. EOMI. No scleral icterus. No conjunctival pallor. Normocephalic, atraumatic. No pharyngeal erythema. No thyromegaly. CARDIOVASCULAR: S1 and S2 present. No murmurs, rubs, or gallops. PULMONARY: Chest is clear to auscultation, no wheezing or crackles. ABDOMEN: Soft, nontender, nondistended, normoactive bowel sounds. No palpable organomegaly. MUSCULOSKELETAL: No joint swelling or deformity. EXTREMITIES: No cyanosis, clubbing, or pedal edema. NEUROLOGICAL: Gross neurological examination did not reveal any focal deficits. SKIN: No rashes. - Labs CBC & Chem 7: 04/28/19 06:08 04/26/19 23:23 Labs: Abnormal Lab Results - Last 24 Hours (Table) 04/28/19 Range/Units 06:08 RBC 3.74 L (3.80-5.40) m/uL Hgb 10.0 L (11.4-16.0) gm/dL Hct 33.6 L (34.0-46.0) % MCHC 29.6 L (31.0-37.0) g/dL Assessment and Plan Plan: Partial small bowel obstruction/Chronic constipation, we will use senna. Patient was started on diet will advance as tolerated to possibly of discharge tomorrow Hypertension Hyperlipidemia History of colon cancer in 2007 Skin cancer of the nose status post removal Osteoporosis History of CVA/TIA
[2019-04-28] MEDS: ATORVASTATIN 10 MG TAB PO SCH (21:49)
[2019-04-29] MEDS: LISINOPRIL 2.5 MG TAB PO SCH (07:52)
[2019-04-29] MEDS: MAGNESIUM HYDROXIDE 2,400 MG/10 ML CUP PO SCH ×2 (07:52→20:40)
[2019-04-29] MEDS: MULTIVITAMINS, THERA 1 EACH TAB PO SCH (07:52)
[2019-04-29] MEDS: ASPIRIN 81 MG PO SCH (07:52)
[2019-04-29] MEDS: CALCIUM CARB-VIT D 500MG-200UN 1 EACH TAB PO SCH ×2 (07:52→20:40)
[2019-04-29] MEDS: IPRATROPIUM-ALBUTEROL 3 ML NEB INHALATION SCH ×4 (08:02→19:59)
[2019-04-29] MEDS: LACTULOSE 20 GM/30 ML CUP PO SCH ×5 (09:35→17:34)
--- NOTE | 2019-04-29 11:24 | P.PN ---
Subjective Progress Note Date: 04/29/19 CHIEF COMPLAINT: Constipation HISTORY OF PRESENT ILLNESS: Patient seen and examined at the bedside. Patient underwent CT yesterday revealing extensive retained fecal debris and findings suggestive of distal colonic obstruction. Patient received 3 soap suds enemas overnight. She reports having multiple bowel movements. She denies nausea or vomiting. Denies abdominal pain. PHYSICAL EXAM: VITAL SIGNS: Reviewed. GENERAL: Well-developed in no acute distress. HEENT: No sclera icterus. Extraocular movements grossly intact. Moist buccal mucosa. Head is atraumatic, normocephalic. ABDOMEN: Soft. Nondistended. Nontender. NEUROLOGIC: Alert and oriented. Cranial nerves II through XII grossly intact. ASSESSMENT: 1. Chronic constipation 2. Distal colonic obstruction secondary to fecal impaction PLAN: 1. Continue liquid diet 2. Patient to undergo barium enema to further evaluate colonic obstruction Nurse practitioner note has been reviewed by physician. Signing provider agrees with the documented findings, assessment, and plan of care. Objective - Vital Signs Vital signs: Vital Signs Temp 98.4 F 04/29/19 07:00 Pulse 79 04/29/19 08:24 Resp 20 04/29/19 08:02 BP 137/73 04/29/19 07:00 Pulse Ox 96 04/29/19 08:02 Intake & Output 04/28/19 04/29/19 04/29/19 18:59 06:59 18:59 Intake Total 236 Balance 236 Intake: Oral 236 Other: Voiding Method Toilet Toilet # Voids 1 2 # Bowel Movements 1 3 - Labs CBC & Chem 7: 04/28/19 06:08 04/26/19 23:23
--- NOTE | 2019-04-29 12:20 | P.PN ---
Subjective Progress Note Date: 04/29/19 Principal diagnosis: 83-year-old female with a past medical history of hypertension, hyperlipidemia, skin cancer of the nose removed, COPD, CVA/TIA transferred from [facility] for concerns of small bowel obstruction. Patient initially presented to [facility] for nausea and abdominal pain. Patient has history of chronic constipation. She had a CAT scan performed at that facility showing severe constipation versus partial small bowel obstruction and so transferred here. She was admitted through the ER. Since admission patient did not have any vomiting. Surgical consult was placed. Patient was started on a bowel regimen and she had a small bowel movement yesterday. This morning she still continues to have mild abdominal discomfort. Denies having any nausea or vomiting. She has been passing flatus. Patient's vitals have been stable over the past 24 hours and her labs from this morning show a hemoglobin of 9.9 and her electrolytes are within normal limits. Patient denies having any chest pain or palpitations. She denies having any difficulty in breathing and she is on 2 L of oxygen at home and has been stable on it now. 04/28/2019 Patient was started on diet clear liquid patient does have bowel sounds had a small bowel movement no nausea no vomiting. Patient appears to have constipation will use and now for that. 04/29/2019 Patient is sitting up in bed in no acute distress. She states that she would like to go home today. Surgery and they are recommending one more day and was given an order for lactulose 4 times to increase bowel movements. Patient states that she has been having bowel movements and passing gas after she was given an enema yesterday. Patient denies any nausea or vomiting and is tolerating diet. Diet has been advanced. Patient is up to the bathroom with no difficulties. Patient is currently on 2 L of oxygen via nasal cannula and that is her baseline at home. Patient states that she does live at home with her daughter and would like to go there today. Currently patient denies any chest pain, shortness of breath, or palpitations at this time. Patient is afebrile. No acute overnight issues. Objective - Vital Signs Vital signs: Vital Signs Temp 98.4 F 04/29/19 07:00 Pulse 78 04/29/19 11:21 Resp 20 04/29/19 08:02 BP 137/73 04/29/19 07:00 Pulse Ox 96 04/29/19 08:02 Intake & Output 04/28/19 04/29/19 04/29/19 18:59 06:59 18:59 Intake Total 236 Balance 236 Weight 47.174 kg Intake: Oral 236 Other: Voiding Method Toilet Toilet # Voids 1 2 # Bowel Movements 1 3 - Exam GENERAL: The patient is alert and oriented x3, not in any acute distress. Thin built elderly female. Vital signs are stable. HEENT: Pupils are round and equally reacting to light. EOMI. No scleral icterus. No conjunctival pallor. Normocephalic, atraumatic. No pharyngeal erythema. No thyromegaly. CARDIOVASCULAR: S1 and S2 present. No murmurs, rubs, or gallops. PULMONARY: Chest is clear to auscultation, no wheezing or crackles. ABDOMEN: Soft, nontender, nondistended, normoactive bowel sounds. No palpable organomegaly. MUSCULOSKELETAL: No joint swelling or deformity. EXTREMITIES: No cyanosis, clubbing, or pedal edema. NEUROLOGICAL: Gross neurological examination did not reveal any focal deficits. SKIN: No rashes. - Labs CBC & Chem 7: 04/28/19 06:08 04/26/19 23:23 Assessment and Plan Assessment: Partial small bowel obstruction/Chronic constipation, we will use senna. Patient was started on diet will advance as tolerated. Surgery is following. An order was written for lactulose. Hypertension Hyperlipidemia History of colon cancer in 2007 Skin cancer of the nose status post removal Osteoporosis History of CVA/TIA Recommendations and discussion: Recommend continue current medications, management, and symptomatic treatment. Will continue to monitor closely. Per surgery recommendations patient was given lactulose to increase bowel movements. She did have enemas yesterday with 1-2 bowel movements. An order for a barium enema was placed to evaluate for possible obstruction. Will await report. Patient states that she would like to go home today. Further recommendations to follow. Guarded prognosis. Possible discharge in 24 hours.
--- NOTE | 2019-04-29 15:24 | FL ---
EXAMINATION TYPE: FL barium enema DATE OF EXAM: 04/29/2019 COMPARISON: Barium enema from January 14, 2019. CT abdomen and pelvis from yesterday. HISTORY: Constipation for days. History of colon cancer. Rule out obstruction. TECHNIQUE: A single contrast barium enema study is performed as requested to rule out obstruction. T otal of 39 seconds of fluoroscopic time was utilized. 21 spot images are saved to PACS. FINDINGS: Manager Of Operations view of the abdomen shows redemonstrates surgical change throughout the pelvis. Over all nonobstructive bowel gas pattern. Scoliotic curvature with multilevel spurring and disc space cindy rowing throughout the lumbar spine. There is only successful filling to the hepatic flexure at which point patient cannot tolerate retrog rade enema anymore and expelled the enema tip. No obstructing or constricting lesion is clearly evide nt. Some mucosal irregularity near site of sutures in the mid to distal sigmoid colon is present. Thi s should be correlated with direct visualization when patient is more clinically stable or has comple te resolution of constipation. Some diverticula in the proximal to mid sigmoid colon incidentally not ed. IMPRESSION: As above.
[2019-04-29] MEDS: ATORVASTATIN 10 MG TAB PO SCH (20:40)
[2019-04-30] MEDS: IPRATROPIUM-ALBUTEROL 3 ML NEB INHALATION SCH ×2 (07:06→11:00)
[2019-04-30 07:27] VITALS: BP 132/74; PULSE 69; RESP 16; TEMP 98.5
[2019-04-30] MEDS: LISINOPRIL 2.5 MG TAB PO SCH (10:05)
[2019-04-30] MEDS: MAGNESIUM HYDROXIDE 2,400 MG/10 ML CUP PO SCH (10:05)
[2019-04-30] MEDS: MULTIVITAMINS, THERA 1 EACH TAB PO SCH (10:05)
[2019-04-30] MEDS: ASPIRIN 81 MG PO SCH (10:05)
[2019-04-30] MEDS: CALCIUM CARB-VIT D 500MG-200UN 1 EACH TAB PO SCH (10:05)
--- NOTE | 2019-04-30 15:16 | P.PN ---
Subjective Progress Note Date: 04/30/19 CHIEF COMPLAINT: Constipation HISTORY OF PRESENT ILLNESS: Patient seen and examined at the bedside. Patient denies abdominal pain. Denies nausea or vomiting. Patient has been tolerating full liquid diet. She has been having multiple bowel movements. PHYSICAL EXAM: VITAL SIGNS: Reviewed. GENERAL: Well-developed in no acute distress. HEENT: No sclera icterus. Extraocular movements grossly intact. Moist buccal mucosa. Head is atraumatic, normocephalic. ABDOMEN: Soft. Nondistended. Nontender. NEUROLOGIC: Alert and oriented. Cranial nerves II through XII grossly intact. ASSESSMENT: 1. Chronic constipation 2. Distal colonic obstruction secondary to fecal impaction PLAN: 1. Continue current diet 2. Patient is stable for discharge home today from a surgical standpoint. Recommend daily MiraLAX. Also recommend lactulose when necessary for constipation. Nurse practitioner note has been reviewed by physician. Signing provider agrees with the documented findings, assessment, and plan of care. Objective - Vital Signs Vital signs: Vital Signs Temp 98.5 F 04/30/19 07:00 Pulse 68 04/30/19 07:18 Resp 16 04/30/19 07:00 BP 132/74 04/30/19 07:00 Pulse Ox 96 04/30/19 07:00 Intake & Output 04/29/19 04/30/19 04/30/19 18:59 06:59 18:59 Intake Total 200 Balance 200 Weight 47.174 kg Intake: Oral 200 Other: # Voids 3 2 # Bowel Movements 5 - Labs CBC & Chem 7: 04/28/19 06:08 04/26/19 23:23
--- NOTE | 2019-05-01 09:34 | P.DS ---
Providers Date of admission: 04/26/19 01:56 Expected date of discharge: 04/30/19 Attending physician: Joaquina Tinoco Consults: 04/26/19 01:57 Consult Physician Routine Consulting Provider: Mak Colon Consult Reason/Comments: sbo Do you want consulting provider notified?: Yes Primary care physician: [facility] Course: Final diagnosis Partial small bowel obstruction, chronic constipation Hypertension Hyperlipidemia History of colon cancer in 2007 Skin cancer of the nose status post removal Osteoporosis History of CVA/TIA Discharge disposition Patient is being discharged in a stable condition with guarded prognosis to home and will follow-up with surgery in the outpatient setting in 1-2 weeks as scheduled. Patient was given MiraLAX upon discharge. Total time taken is 35 minutes. History of present illness This is an 83-year-old female was initially at [facility] for nausea and abdominal pain and was transferred here and was being closely monitored. On CAT scan it showed severe constipation versus partial small bowel obstruction. Surgery was consulted. Patient does have a history of chronic constipation. Patient was started on a bowel regimen during hospitalization and had small bowel movement with some mild abdominal discomfort and was able to pass gas. No interventions done at this time and treatment conservatively. A barium enema was done that was negative as patient continued to have bowel movements after a few soapsuds enemas and a couple doses of lactulose. Patient is feeling much better and condition is stable with much improvement. She would like to go home. Patient will follow-up with in the outpatient setting in 1-2 weeks. Patient denies any chest pain, shortness of breath, or palpitations at this time. Patient is afebrile. Patient denies any nausea or vomiting and is tolerating a clear liquid diet. Patient may slowly advance as tolerated. Patient was given MiraLAX upon discharge as needed. Guarded prognosis. On exam vital signs are stable. Temp is 98.5F, pulse 69, respirations are 16, blood pressure is 132/74, oxygen saturation is 96% on 2 L via nasal cannula. Cardio S1 and S2 are present. Respiratory system shows clear to auscultation. Abdomen is soft, thin, nontender. Nervous system shows no focal deficits and gait is steady. Please refer to medication reconciliation sheet for a list of medications. Patient Condition at Discharge: Fair Plan - Discharge Summary Discharge Rx Participant: No New Discharge Prescriptions: New Polyethylene Glycol 3350 [Miralax] 17 gm PO DAILY #30 packet Lactulose [Cephulac] 20 gm PO BID PRN #500 ml PRN Reason: Constipation Continue Simvastatin [Zocor] 10 mg PO HS Multivitamins, Thera [Multivitamin (formulary)] 1 tab PO DAILY Lisinopril [Zestril] 2.5 mg PO DAILY Calcium Carbonate/Vitamin D3 [Caltrate 600 Plus D3 Tablet] 1 tab PO BID Ergocalciferol [Vitamin D2 (DRISDOL)] 50,000 unit PO QMONTH Aspirin EC [Ecotrin Low Dose] 81 mg PO DAILY #1 tablet.dr Discharge Medication List Calcium Carbonate/Vitamin D3 [Caltrate 600 Plus D3 Tablet] 1 tab PO BID 04/21/14 [History] Ergocalciferol [Vitamin D2 (DRISDOL)] 50,000 unit PO QMONTH 04/21/14 [History] Lisinopril [Zestril] 2.5 mg PO DAILY 04/21/14 [History] Multivitamins, Thera [Multivitamin (formulary)] 1 tab PO DAILY 04/21/14 [History] Simvastatin [Zocor] 10 mg PO HS 04/21/14 [History] Aspirin EC [Ecotrin Low Dose] 81 mg PO DAILY #1 tablet. 04/22/14 [Rx] Lactulose [Cephulac] 20 gm PO BID PRN #500 ml 04/30/19 [Rx] Polyethylene Glycol 3350 [Miralax] 17 gm PO DAILY #30 packet 04/30/19 [Rx] Follow up Appointment(s)/Referral(s): Elvin Bell MD [Primary Care Provider] - 05/01/19 11:30 am Mak Colon MD [STAFF PHYSICIAN] - 05/07/19 4:10 pm Patient Instructions/Handouts: Clear Liquid Diet (DC), Bowel Obstruction (DC) Activity/Diet/Wound Care/Special Instructions: Activity Limited until follow-up Continue with clear liquid diet and advance as tolerated Follow-up with primary care provider this week Follow-up with surgery as discussed and scheduled Discharge Disposition: HOME SELF-CARE
[2019-05-15] MEDS ORDERED: ERGOCALCIFEROL 50,000 UNIT CAP PO SCH (09:00)
== END 2019-04-30 13:39 | disposition home or self-care (01) ==
LOC: EC 00:57 → INTOOBSV 01:56 → UNDOADMIN 01:56 → 4SSUR 01:56 → UNDODISIN 04-30 13:39
PROVIDERS: ADMIT Hospitalist; ATTEND Hospitalist
DX: K56.690 Other partial intestinal obstruction (principal); J96.10 Chronic respiratory failure, unspecified whether with hypoxia or hypercapnia; K56.41 Fecal impaction; Z85.038 Personal history of other malignant neoplasm of large intestine; Z85.828 Personal history of other malignant neoplasm of skin; E78.5 Hyperlipidemia, unspecified; I10 Essential (primary) hypertension; J44.9 Chronic obstructive pulmonary disease, unspecified; M81.0 Age-related osteoporosis without current pathological fracture; Z79.82 Long term (current) use of aspirin; Z79.899 Other long term (current) drug therapy; Z86.73 Personal history of transient ischemic attack (TIA), and cerebral infarction without residual deficits; Z87.891 Personal history of nicotine dependence; Z99.81 Dependence on supplemental oxygen; Z98.42 Cataract extraction status, left eye; Z98.41 Cataract extraction status, right eye; Z82.3 Family history of stroke
CPT/HCPCS: 96361 ×2; 96374; 99284; 94640 ×5; 94760 ×2; 93005; 80048; 85025 ×2; 74270; 74019; 74176; G0378 ×5; J2405; 96360

== ENCOUNTER 2019-10-15 22:15 | Inpatient (IN) | payer MEDICARE ==
[2019-10-15] MEDS ORDERED: SODIUM CHLORIDE 0.9% 1,000 ML IV ONE (22:39)
[2019-10-15] MEDS ORDERED: PANTOPRAZOLE 40 MG/10 ML VIAL IVP STA (22:39)
--- NOTE | 2019-10-15 22:42 | ED ---
Recheck HPI - General Chief Complaint: Abdominal Pain Stated Complaint: Bowel obstruction Time Seen by Provider: 10/15/19 22:16 Source: patient, EMS, RN notes reviewed, old records reviewed Mode of arrival: EMS Limitations: no limitations - History of Present Illness Initial Comments: This is an 84-year-old female presents to outside facility. Severe abdominal pain nausea and vomiting. History of similar complaint. History of colon cancer history of resection, patient states he feels a prior small bowel obstruction over symptoms here in the ER [facility] hospital much improved spoke with transferring physician patient has small bowel structure at their facility NG tube was placed and patient was placed in transfer patient suffers no complaints EMS providers no other significant history MD Complaint: other (Patient sent DF secondary to small bowel obstruction surgeon at this hospital) -: hour(s) Returns Today for: persistent/worsening pain related to initial visit, other Symptoms Since Prior Visit: no new symptoms, improved Context: other (Feeling better) Associated Symptoms: none Treatments Prior to Arrival: Given Pain Meds on - Related Data Home Medications Medication Instructions Recorded Confirmed Calcium Carbonate/Vitamin D3 1 tab PO BID 04/21/14 04/26/19 [Caltrate 600 Plus D3 Tablet] Ergocalciferol [Vitamin D2 50,000 unit PO QMONTH 04/21/14 04/26/19 (DRISDOL)] Lisinopril [Zestril] 2.5 mg PO DAILY 04/21/14 04/26/19 Multivitamins, Thera [Multivitamin 1 tab PO DAILY 04/21/14 04/26/19 (formulary)] Simvastatin [Zocor] 10 mg PO HS 04/21/14 04/26/19 Previous Rx's Medication Instructions Recorded Aspirin EC [Ecotrin Low Dose] 81 mg PO DAILY #1 tablet.dr 04/22/14 Lactulose [Cephulac] 20 gm PO BID PRN #500 ml 04/30/19 Polyethylene Glycol 3350 [Miralax] 17 gm PO DAILY #30 packet 04/30/19 Allergies Allergy/AdvReac Type Severity Reaction Status Date / Time No Known Allergies Allergy Verified 04/26/19 07:58 Review of Systems ROS Statement: Those systems with pertinent positive or pertinent negative responses have been documented in the HPI. ROS Other: All systems not noted in ROS Statement are negative. Past Medical History Past Medical History: Cancer, COPD, CVA/TIA, Hyperlipidemia, Hypertension, Pneumonia Additional Past Medical History / Comment(s): colon ca 2008, skin cancer nose removed, osteoporosis. Skin cancer on chest removed 2019, States recent CAT scan shows a mass on her colon. Uses oxygen @ home @ 2 L's. History of Any Multi-Drug Resistant Organisms: None Reported Past Surgical History: Bowel Resection, Tonsillectomy Additional Past Surgical History / Comment(s): cataract surgery bilat. Skin cancer removed from top of nose. Past Anesthesia/Blood Transfusion Reactions: No Reported Reaction Past Psychological History: No Psychological Hx Reported Smoking Status: Former smoker Past Alcohol Use History: None Reported Past Drug Use History: None Reported - Past Family History Father Family Medical History: CVA/TIA Additional Family Medical History / Comment(s): AGE 89- HX TB Mother Additional Family Medical History / Comment(s): AT AGE 88 UNK CAUSE General Exam Limitations: no limitations General appearance: alert, in no apparent distress Head exam: Present: atraumatic, normocephalic, normal inspection Eye exam: Present: normal appearance, PERRL, EOMI. Absent: scleral icterus, conjunctival injection, periorbital swelling ENT exam: Present: normal exam, mucous membranes moist Neck exam: Present: normal inspection. Absent: tenderness, meningismus, lymphadenopathy Respiratory exam: Present: normal lung sounds bilaterally. Absent: respiratory distress, wheezes, rales, rhonchi, stridor Cardiovascular Exam: Present: regular rate, normal rhythm, normal heart sounds. Absent: systolic murmur, diastolic murmur, rubs, gallop, clicks GI/Abdominal exam: Present: soft, normal bowel sounds. Absent: distended, tenderness, guarding, rebound, rigid Extremities exam: Present: normal inspection, full ROM, normal capillary refill. Absent: tenderness, pedal edema, joint swelling, calf tenderness Back exam: Present: normal inspection Neurological exam: Present: alert, oriented X3, CN II-XII intact Psychiatric exam: Present: normal affect, normal mood Skin exam: Present: warm, dry, intact, normal color. Absent: rash Course Vital Signs 10/15/19 22:16 Temperature 97.8 F Pulse Rate 72 Respiratory 18 Rate Blood Pressure 154/60 O2 Sat by Pulse 100 Oximetry - Reevaluation(s) Reevaluation #1: 10/15/19 22:41 Medical record and transfer paperwork is reviewed Reevaluation #2: 10/15/19 22:41 Patient currently has no complaints no pain issues, NG tube placed no vomiting - Consultations Consultation #1: Spoke with Dr. Harper for Dr. Isaiah valle for admission Medical Decision Making - Medical Decision Making 84 female history of colon CA coming with bowel pain patient is transferred with history of small bowel obstruction has current small bowel traction, patient to be admitted for surgical consultation Disposition Clinical Impression: Bowel obstruction, Abdominal pain, Small bowel obstruction Disposition: ADMITTED IP TO THIS HOSP Condition: Fair Is patient prescribed a controlled substance at d/c from ED?: No Referrals: Elvin Bell MD [Primary Care Provider] - 1-2 days
[2019-10-16] MEDS ORDERED: ALBUTEROL NEBULIZED 2.5 MG/3 ML INHALATION PRN (02:00)
[2019-10-16] MEDS: MORPHINE SULFATE 4 MG/ML SYRINGE IVP PRN ×4 (02:41→21:19)
[2019-10-16 02:46] LABS: Basophils % (A) 0 %; Eosinophils % (A) 0 %; HCT 34.1 % (34.0-46.0); HGB 10.1 gm/dL (11.4-16.0); Hypochromasia Marked; Lymphocytes # (A) 0.4 k/uL (1.0-4.8); Lymphocytes % (A) 3 %; MCH 25.2 pg (25.0-35.0); MCHC 29.7 g/dL (31.0-37.0); MCV 84.9 fL (80.0-100.0); Mean Platelet Volume 6.7; Monocytes # (A) 0.4 k/uL (0-1.0); Monocytes % (A) 3 %; Neutrophils # (A) 12.8 k/uL (1.3-7.7); Neutrophils % (A) 93 %; Platelet Count 452 k/uL (150-450); RBC 4.02 m/uL (3.80-5.40); RDW 14.6 % (11.5-15.5); WBC 13.7 k/uL (3.8-10.6)
[2019-10-16] MEDS: ONDANSETRON 4 MG/2 ML VIAL IVP PRN ×4 (02:51→21:19)
[2019-10-16 03:07] LABS: ALT 7 U/L (4-34); AST 22 U/L (14-36); African American GFR (CKD) >90 (>60 ml/min/1.73 sqM); Albumin 3.8 g/dL (3.5-5.0); Alkaline Phosphatase 107 U/L (38-126); Anion Gap 6 mmol/L; Blood Urea Nitrogen 19 mg/dL (7-17); C Reactive Protein 25.4 mg/L (<10.0); Calcium 9.5 mg/dL (8.4-10.2); Carbon Dioxide 33 mmol/L (22-30); Chloride 93 mmol/L (98-107); Creatine Kinase 31 U/L (30-135); Glucose 116 mg/dL (74-99); LDH 471 U/L (313-618); Non-African American GFR(CKD) 83 (>60 ml/min/1.73 sqM); Potassium 5.2 mmol/L (3.5-5.1); Sodium 132 mmol/L (137-145); Total Bilirubin 0.3 mg/dL (0.2-1.3); Total Protein 6.9 g/dL (6.3-8.2)
--- NOTE | 2019-10-16 04:26 | P.HPIM ---
History of Present Illness H&P Date: 10/16/19 Chief Complaint: Small bowel obstruction I was wearing full PPE during this encounter including N95 mask, face shield, double gloves, gown, and head cover. patient had a surgical mask on during my entire interview. i maintained 6 feet distance with the patient who verbalized understanding about these precautionary measures. except for during my physical exam where i had to be close to the patient. Patient is transferred from [facility] 84-year-old female with COPD on home oxygen, history of stroke, hypertension controlled, history of colon cancer Patient has recurrent history of small bowel obstruction. She comes in with 5 d ay history of constipation she is not sure if she is passing gases and 3 day history of repeated nausea vomiting she described it as roundish yellowish vomiting is not sure if she has greenish vomiting. But denies any bloody or coffee-ground vomiting. She also reports left lower quadrant abdominal pain radiating to the rest of the belly she said severe colicky pain comes and goes 8 out of 10 in severity denies any fevers. She reports that this has happened in the past she is not sure kind of treatment was delivered at that time. At [facility] she had a computed tomography scan of the abdomen showed partial or complete small bowel obstruction with incidental finding of lower lung increase mucus collection in the bronchi. Upon further questioning to the patient she reported coughing and she added that she has lost of appetite and taste but denies any fever. She also added that she feels congested but denies any diffuse body aches denies any headache denies any chest pain Due to concerns of Covid 19 infection patient was on the oncology floor she was transferred to general medical floor with telemetry and will be tested for Covid Influenza testing came back negative D-dimer came back elevated this is for prognostic evaluation of Covid 19 infection, this is not to evaluate for blood clot at this time as patient did not report symptoms suggestive of blood clots Otherwise blood work from [facility] was reviewed showing white count of 10 lymphopenia at 0.48 Platelets were 471 Hemoglobin 10.8 with anemia Potassium was 5.3 Bicarb was 34 Calcium elevated at 10.3 Liver function test was negative Lactic acid was 1 Review of Systems Pertinent positives as noted in HPI. All other systems were reviewed and are negative Past Medical History Past Medical History: Cancer, COPD, CVA/TIA, Hyperlipidemia, Hypertension, Pneumonia Additional Past Medical History / Comment(s): colon ca 2008, skin cancer nose removed, osteoporosis. Skin cancer on chest removed 2019, States recent CAT scan shows a mass on her colon. Uses oxygen @ home @ 2 L's. History of Any Multi-Drug Resistant Organisms: None Reported Past Surgical History: Bowel Resection, Tonsillectomy Additional Past Surgical History / Comment(s): cataract surgery bilat. Skin cancer removed from top of nose. Past Anesthesia/Blood Transfusion Reactions: No Reported Reaction Past Psychological History: No Psychological Hx Reported Smoking Status: Former smoker Past Alcohol Use History: None Reported Past Drug Use History: None Reported - Past Family History Father Family Medical History: CVA/TIA Additional Family Medical History / Comment(s): AGE 89- HX TB Mother Additional Family Medical History / Comment(s): AT AGE 88 UNK CAUSE Medications and Allergies Home Medications Medication Instructions Recorded Confirmed Type Calcium Carbonate/Vitamin D3 1 tab PO BID 04/21/14 10/15/19 History [Caltrate 600 Plus D3 Tablet] Ergocalciferol [Vitamin D2 50,000 unit PO QMONTH 04/21/14 10/15/19 History (DRISDOL)] Lisinopril [Zestril] 2.5 mg PO HS 04/21/14 10/15/19 History Multivitamins, Thera [Multivitamin 1 tab PO DAILY 04/21/14 10/15/19 History (formulary)] Simvastatin [Zocor] 10 mg PO HS 04/21/14 10/15/19 History Aspirin EC [Ecotrin Low Dose] 81 mg PO DAILY #1 tablet. 04/22/14 10/15/19 Rx Ferrous Sulfate [Feosol] 325 mg PO DAILY 10/15/19 10/15/19 History Ibuprofen [Motrin] 400 mg PO Q8HR PRN 10/15/19 10/15/19 History Ipratropium-Albuterol Nebulize 3 ml INHALATION RT-QID 10/15/19 10/15/19 History [Duoneb 0.5 mg-3 mg/3 ml Soln] Polyethylene Glycol 3350 [Miralax] 17 gm PO BID 10/15/19 10/15/19 History Allergies Allergy/AdvReac Type Severity Reaction Status Date / Time No Known Allergies Allergy Verified 10/15/19 22:56 Physical Exam Vitals: Vital Signs Temp Pulse Pulse Resp BP BP Pulse Ox 10/15/19 23:51 96.2 F L 80 16 127/58 100 10/15/19 22:16 97.8 F 72 18 154/60 100 Intake and Output 10/15/19 10/15/19 10/16/19 14:59 22:59 06:59 Other: Weight 44.452 kg Constitutional: No acute distress, conversant, pleasant Eyes: Anicteric sclerae, moist conjunctiva, no lid-lag Pupils equal round reactive to light ENMT: NC/AT Oropharynx clear, no erythema, or exudates Neck: Supple, FROM, no masses, or JVD No carotid bruits No thyromegaly Lungs: Clear to auscultation Clear to percussion Normal respiratory effort, no accessory muscle use Cardiovascular: Heart regular in rate and rhythm, No murmurs, gallops, or rubs No peripheral edema Abdominal: Soft Diffuse tenderness to palpation of the abdomen, positive for voluntary guarding, no rebound or rigidity Abdomen moving with respiration Normoactive bowel sounds No hepatomegaly, No splenomegaly No palpable mass No abdominal wall hernia noted Skin: Normal temperature, tone, texture, turgor No induration No subcutaneous nodules No rash, lesions No ulcers Extremities: No digital cyanosis No clubbing Pedal pulses intact and symmetrical Radial pulses intact and symmetrical No calf tenderness Psychiatric: Alert and oriented to person, place Appropriate affect fair judgment Neuro Muscles Strength 4/5 in all 4 extremities Sensation to light touch grossly present throughout Cranial nerves II-XII grossly intact No focal sensory deficits Lymphatics: no palpable cervical or supraclavicular , or inguinal lymph nodes Results CBC & Chem 7: 10/16/19 01:45 10/16/19 01:45 Assessment and Plan Assessment: 84-year-old female with complex past medical history includes history of colon cancer, CVA. Hypertension currently controlled, COPD on home oxygen Patient was transferred from [facility] for small bowel obstruction that was diagnosed and confirmed with CAT scan of the abdomen Incidental finding of increased mucus in the bronchi of the lower lungs found in the CAT scan patient also reported congestion coughing loss of taste sensation. Patient was transferred to medical floor and testing for Covid 19 was done Anticipated length of stay more than 2 midnights Acute small bowel obstruction Nausea vomiting repeated Constipation Management per general surgery Supportive care A fluid hydration NG tube for relief Pain control Follow-up electrolytes and correct as needed Suspected Covid secondary to reported symptoms of coughing congestion loss of taste sensation and CAT scans incidental finding of increased mucus in her lower lungs Check chest x-ray Check Covid Influenza negative D-dimer elevated this is a prognostic value for Covid infection Patient has lymphopenia Afebrile Contact and droplet precautions Consult ID for recommendations regarding Plaquenil COPD on home oxygen currently stable Chronic hypoxic respoiratory failure Albuterol inhaler as needed Continue home oxygen keep oxygen saturation above 92% Preformed a thorough record review from recent hospitalization [facility] transfer papers CODE STATUS: Full code DVT prophylaxis: Upper subcu 3 times a day Discussed with: Patient, ER, RN Anticipated length of stay more than [address]: Home A total of 60 minutes was spent on the care of this complex patient more than 50% of the time was spent in counseling and care coordination.
[2019-10-16] MEDS: PANTOPRAZOLE 40 MG/10 ML VIAL IVP SCH (07:25)
[2019-10-16] MEDS: ASPIRIN 81 MG PO SCH (07:26)
[2019-10-16] MEDS: HEPARIN SODIUM,PORCINE 5,000 UNIT/ML 1 ML VIAL SQ SCH ×3 (07:26→23:49)
--- NOTE | 2019-10-16 07:54 | XR ---
EXAMINATION TYPE: XR chest 1V DATE OF EXAM: 10/16/2019 HISTORY: Shortness of breath. COMPARISON: None. TECHNIQUE: Single view of the chest is submitted. FINDINGS: Demonstrated are scattered senescent parenchymal change. Scattered nonspecific interstitial infiltrates throughout both lung carcamo with greater confluence co mponent at the right lung base. The heart is stable. Hilar and mediastinal structures are within normal limits. Degenerative changes are seen of the dorsal spine. IMPRESSION: 1. Scattered nonspecific interstitial infiltrates throughout both lung carcamo with greater confluenc e component at the right lung base.
[2019-10-16] MEDS: ALBUTEROL HFA INHALER INHALATION PRN ×2 (08:49→19:31)
[2019-10-16 11:25] LABS: Ferritin 13.7 ng/mL (10.0-291.0)
[2019-10-16] MEDS ORDERED: IOPAMIDOL CONTRAST (ORAL USE) VIAL PO PRN (13:54)
--- NOTE | 2019-10-16 13:54 | P.GSCN ---
History of Present Illness Consult date: 10/16/19 Reason for Consult: This is a 84-year-old female well-known to myself. Patient was admitted from outside facility. Patient CAT scan there which shows evidence of dilated small bowel and a high-grade small bowel obstruction. Patient had removed her nasogastric tube exit points morning. She currently complains of some mild abdominal pain. She's not eaten in 3 days. History of present illness: This is a 84-year-old female well-known to myself. Patient was admitted from outside facility. Patient CAT scan there which shows evidence of dilated small bowel and a high-grade small bowel obstruction. Patient had removed her nasogastric tube exit points morning. She currently complains of some mild abdominal pain. She's not eaten in 3 days. Past Medical History Past Medical History: Cancer, COPD, CVA/TIA, Hyperlipidemia, Hypertension, Pneumonia Additional Past Medical History / Comment(s): colon ca 2007, skin cancer nose removed, osteoporosis. Skin cancer on chest removed 2019, States recent CAT scan shows a mass on her colon. Uses oxygen @ home @ 2 L's. History of Any Multi-Drug Resistant Organisms: None Reported Past Surgical History: Bowel Resection, Tonsillectomy Additional Past Surgical History / Comment(s): cataract surgery bilat. Skin cancer removed from top of nose. Past Anesthesia/Blood Transfusion Reactions: No Reported Reaction Past Psychological History: No Psychological Hx Reported Smoking Status: Former smoker Past Alcohol Use History: None Reported Past Drug Use History: None Reported - Past Family History Father Family Medical History: CVA/TIA Additional Family Medical History / Comment(s): AGE 89- HX TB Mother Additional Family Medical History / Comment(s): AT AGE 88 UNK CAUSE Medications and Allergies Home Medications Medication Instructions Recorded Confirmed Type Calcium Carbonate/Vitamin D3 1 tab PO BID 04/21/14 10/15/19 History [Caltrate 600 Plus D3 Tablet] Ergocalciferol [Vitamin D2 50,000 unit PO QMONTH 04/21/14 10/15/19 History (DRISDOL)] Lisinopril [Zestril] 2.5 mg PO HS 04/21/14 10/15/19 History Multivitamins, Thera [Multivitamin 1 tab PO DAILY 04/21/14 10/15/19 History (formulary)] Simvastatin [Zocor] 10 mg PO HS 10/08/14 04/02/20 History Aspirin EC [Ecotrin Low Dose] 81 mg PO DAILY #1 tablet. 04/22/14 10/15/19 Rx Ferrous Sulfate [Feosol] 325 mg PO DAILY 10/15/19 10/15/19 History Ibuprofen [Motrin] 400 mg PO Q8HR PRN 10/15/19 10/15/19 History Ipratropium-Albuterol Nebulize 3 ml INHALATION RT-QID 10/15/19 10/15/19 History [Duoneb 0.5 mg-3 mg/3 ml Soln] Polyethylene Glycol 3350 [Miralax] 17 gm PO BID 10/15/19 10/15/19 History Allergies Allergy/AdvReac Type Severity Reaction Status Date / Time No Known Allergies Allergy Verified 10/15/19 22:56 Surgical - Exam Vital Signs Temp Pulse Resp BP Pulse Ox 97.8 F 72 18 154/60 100 10/15/19 22:16 10/15/19 22:16 10/15/19 22:16 10/15/19 22:16 10/15/19 22:16 - General well developed, cachectic, chronically ill - Eyes PERRL - ENT normal pinna - Neck no masses - Respiratory normal expansion - Cardiovascular Rhythm: regular - Abdomen Minimal tenderness. There is no rebound or guarding Abdomen: soft Results - Labs 10/16/19 01:45 10/16/19 01:45 Abnormal Lab Results - Last 24 Hours (Table) 10/16/19 10/16/19 10/16/19 Range/Units 01:45 01:45 01:45 WBC 13.7 H (3.8-10.6) k/uL Hgb 10.1 L (11.4-16.0) gm/dL MCHC 29.7 L (31.0-37.0) g/dL Plt Count 452 H (150-450) k/uL Neutrophils # 12.8 H (1.3-7.7) k/uL Lymphocytes # 0.4 L (1.0-4.8) k/uL D-Dimer 1.29 H (<0.60) mg/L FEU Sodium 132 L (137-145) mmol/L Potassium 5.2 H (3.5-5.1) mmol/L Chloride 93 L (98-107) mmol/L Carbon Dioxide 33 H (22-30) mmol/L BUN 19 H (7-17) mg/dL Glucose 116 H (74-99) mg/dL C-Reactive Protein 25.4 H (<10.0) mg/L Diabetes panel 10/16/19 Range/Units 01:45 Sodium 132 L (137-145) mmol/L Potassium 5.2 H (3.5-5.1) mmol/L Chloride 93 L (98-107) mmol/L Carbon Dioxide 33 H (22-30) mmol/L BUN 19 H (7-17) mg/dL Creatinine 0.63 (0.52-1.04) mg/dL Glucose 116 H (74-99) mg/dL Calcium 9.5 (8.4-10.2) mg/dL AST 22 (14-36) U/L ALT 7 (4-34) U/L Alkaline Phosphatase 107 (38-126) U/L Total Protein 6.9 (6.3-8.2) g/dL Albumin 3.8 (3.5-5.0) g/dL Calcium panel 10/16/19 Range/Units 01:45 Calcium 9.5 (8.4-10.2) mg/dL Albumin 3.8 (3.5-5.0) g/dL Pituitary panel 10/16/19 Range/Units 01:45 Sodium 132 L (137-145) mmol/L Potassium 5.2 H (3.5-5.1) mmol/L Chloride 93 L (98-107) mmol/L Carbon Dioxide 33 H (22-30) mmol/L BUN 19 H (7-17) mg/dL Creatinine 0.63 (0.52-1.04) mg/dL Glucose 116 H (74-99) mg/dL Calcium 9.5 (8.4-10.2) mg/dL Adrenal panel 10/16/19 Range/Units 01:45 Sodium 132 L (137-145) mmol/L Potassium 5.2 H (3.5-5.1) mmol/L Chloride 93 L (98-107) mmol/L Carbon Dioxide 33 H (22-30) mmol/L BUN 19 H (7-17) mg/dL Creatinine 0.63 (0.52-1.04) mg/dL Glucose 116 H (74-99) mg/dL Calcium 9.5 (8.4-10.2) mg/dL Total Bilirubin 0.3 (0.2-1.3) mg/dL AST 22 (14-36) U/L ALT 7 (4-34) U/L Alkaline Phosphatase 107 (38-126) U/L Total Protein 6.9 (6.3-8.2) g/dL Albumin 3.8 (3.5-5.0) g/dL Assessment and Plan Assessment: High-grade small bowel structure. Patient will see nasogastric tube decompression. We will repeat her CAT scan on Saturday. If she still has evidence of small bowel obstruction she will undergo larger laparotomy with lysis of adhesions.
--- NOTE | 2019-10-16 16:17 | P.PN ---
Subjective Progress Note Date: 10/16/19 Patient seen and examined at bedside, NG tube apparently came out overnight, the patient complained of nausea but denies any vomiting has some abdominal pain worse in the right lower quadrant denies passing gas or having a bowel movement over the patient has had previous abdominal surgeries and has a previous midline scar. She also presented with similar symptoms last year, white count was 13.7, sodium 132 potassium 5.2, hemoglobin was 10.1 Objective - Vital Signs Vital signs: Vital Signs Temp 97.7 F 10/16/19 03:26 Pulse 75 10/16/19 03:26 Resp 14 10/16/19 03:26 BP 122/66 10/16/19 03:26 Pulse Ox 100 10/16/19 03:26 Intake & Output 10/15/19 10/16/19 10/16/19 18:59 06:59 18:59 Intake Total 400 Balance 400 Weight 44.452 kg Intake: Intake, IV Titration 400 Amount Sodium Chloride 0.9% 1, 400 000 ml @ 100 mls/hr IV . Q10H ONE Rx#:[id number] Other: Voiding Method Toilet # Voids 2 - Exam Constitutional: No acute distress, conversant, pleasant Eyes: Anicteric sclerae, moist conjunctiva, no lid-lag, PERRLA ENMT: NC/AT,Oropharynx clear, no erythema, exudates Neck:Supple, FROM, no masses, or JVD, No carotid bruits; No thyromegaly Lungs: Clear to auscultation, Clear to percussion, Normal respiratory effort, no accessory muscle use Cardiovascular: Heart regular in rate and rhythm, No murmurs, gallops, or rubs no peripheral edema Abdominal: Soft tender to palpation in the right lower quadrant, nom distended, no guarding, no rebound or rigidity, hypoactive bowel sounds No palpable mass No abdominal wall hernia noted Skin: Normal temperature, tone, texture, turgor, No induration No subcutaneous nodules, No rash, lesions, No ulcers Extremities:No digital cyanosis No clubbing, Pedal pulses intact and symmetrical Radial pulses intact and symmetrical Normal gait and station, No ca lf tenderness Psychiatric: Alert and oriented to person, place and time, Appropriate affect Intact judgement Neuro: Muscles Strength 5/5 in all 4 extremities, Sensation to light touch grossly present throughout, Cranial nerves II-XII grossly intact. No focal sensory deficits - Labs CBC & Chem 7: 10/16/19 01:45 04 01:45 Labs: Abnormal Lab Results - Last 24 Hours (Table) 10/16/19 10/16/19 10/16/19 Range/Units 01:45 01:45 01:45 WBC 13.7 H (3.8-10.6) k/uL Hgb 10.1 L (11.4-16.0) gm/dL MCHC 29.7 L (31.0-37.0) g/dL Plt Count 452 H (150-450) k/uL Neutrophils # 12.8 H (1.3-7.7) k/uL Lymphocytes # 0.4 L (1.0-4.8) k/uL D-Dimer 1.29 H (<0.60) mg/L FEU Sodium 132 L (137-145) mmol/L Potassium 5.2 H (3.5-5.1) mmol/L Chloride 93 L (98-107) mmol/L Carbon Dioxide 33 H (22-30) mmol/L BUN 19 H (7-17) mg/dL Glucose 116 H (74-99) mg/dL C-Reactive Protein 25.4 H (<10.0) mg/L Assessment and Plan Assessment: Acute small bowel obstruction * The patient has risk factors including previous abdominal surgeries * We'll replace NG tube with low to intermittent suctioning * Follow general surgery recommendations, continue nothing by mouth status * Supportive care with IV fluids and antiemetics and pain medication * Follow-up electrolytes and correct as needed Suspected Covid secondary to reported symptoms of coughing congestion loss of taste sensation and CAT scans incidental finding of increased mucus in her lower lungs * chest x-ray indicating scattered nonspecific interstitial infiltrates throughout both lungs greater the right lower base * Influenza negative * D-dimer is nonspecific but elevated this is a prognostic value for Covid infection * Afebrile with leukocytosis and lymphopenia * Contact and droplet precautions * Consult ID for recommendations regarding Plaquenil Hyponatremia * Secondary to dehydration and poor by mouth intake * Continue gentle hydration NS @ 75 mL an hour COPD on home oxygen currently stable * Chronic hypoxic respoiratory failure * Albuterol inhaler as needed * Continue home oxygen keep oxygen saturation above 92% Disposition * Continue current management follow-up consultants recommendations
[2019-10-16] MEDS: SODIUM CHLORIDE 0.9% 1,000 ML IV SCH (16:33)
[2019-10-16] MEDS: AMPICILLIN-SULBACTAM 3 GM in SODIUM CHLORIDE 0.9% 100 ML IVPB SCH ×2 (18:16→23:49)
[2019-10-16 19:01] LABS: Magnesium 1.6 mg/dL (1.6-2.3); Phosphorus 4.1 mg/dL (2.5-4.5); Potassium 5.6 mmol/L (3.5-5.1)
[2019-10-16] MEDS ORDERED: MVI, ADULT NO.4 WITH VIT K 10 ML, TRACE (CONC-1ML/DOSE) 1 ML, SODIUM CHLORIDE 2.5MEQ/ML... IV SCH ×7 (21:00)
[2019-10-16] MEDS: MAGNESIUM SULFATE-D5W PMX 1 GM in DEXTROSE/WATER 1 100ML.BAG IVPB SCH ×2 (21:10→22:20)
[2019-10-16] MEDS: ATORVASTATIN 10 MG TAB PO SCH (21:10)
[2019-10-16] MEDS: LISINOPRIL 2.5 MG TAB PO SCH (21:10)
[2019-10-17] MEDS: ONDANSETRON 4 MG/2 ML VIAL IVP PRN ×2 (01:28→20:54)
[2019-10-17] MEDS: MORPHINE SULFATE 4 MG/ML SYRINGE IVP PRN (01:30)
[2019-10-17] MEDS ORDERED: KETOROLAC 30 MG/ML 1 ML VIAL IVP STA (02:18)
[2019-10-17] MEDS: AMPICILLIN-SULBACTAM 3 GM in SODIUM CHLORIDE 0.9% 100 ML IVPB SCH ×4 (05:10→23:25)
[2019-10-17 06:40] LABS: Basophils % (A) 0 %; Eosinophils % (A) 0 %; HGB 9.8 gm/dL (11.4-16.0); Hypochromasia Marked; Lymphocytes # (A) 0.3 k/uL (1.0-4.8); Lymphocytes % (A) 7 %; MCH 25.2 pg (25.0-35.0); MCHC 29.7 g/dL (31.0-37.0); MCV 84.8 fL (80.0-100.0); Mean Platelet Volume 6.6; Monocytes # (A) 0.3 k/uL (0-1.0); Monocytes % (A) 7 %; Neutrophils # (A) 3.9 k/uL (1.3-7.7); Neutrophils % (A) 83 %; Platelet Count 423 k/uL (150-450); RBC 3.89 m/uL (3.80-5.40); RDW 14.6 % (11.5-15.5); WBC 4.7 k/uL (3.8-10.6)
[2019-10-17 06:48] LABS: Ionized Calcium 4.9 mg/dL (4.5-5.3)
[2019-10-17 06:54] LABS: ALT 8 U/L (4-34); AST 21 U/L (14-36); African American GFR (CKD) >90 (>60 ml/min/1.73 sqM); Albumin 3.3 g/dL (3.5-5.0); Alkaline Phosphatase 94 U/L (38-126); Anion Gap 6 mmol/L; Blood Urea Nitrogen 22 mg/dL (7-17); Calcium 8.8 mg/dL (8.4-10.2); Carbon Dioxide 32 mmol/L (22-30); Chloride 97 mmol/L (98-107); Glucose 110 mg/dL (74-99); Non-African American GFR(CKD) 80 (>60 ml/min/1.73 sqM); Phosphorus 3.1 mg/dL (2.5-4.5); Potassium 4.4 mmol/L (3.5-5.1); Sodium 135 mmol/L (137-145); Total Bilirubin 0.3 mg/dL (0.2-1.3); Total Protein 6.4 g/dL (6.3-8.2)
[2019-10-17] MEDS: ASPIRIN 81 MG PO SCH (08:23)
[2019-10-17] MEDS: HEPARIN SODIUM,PORCINE 5,000 UNIT/ML 1 ML VIAL SQ SCH ×3 (08:24→23:30)
[2019-10-17] MEDS: PANTOPRAZOLE 40 MG/10 ML VIAL IVP SCH (08:25)
[2019-10-17] MEDS: FAT EMULSION 20% 250 ML in EMPTY BAG 1 BAG IV SCH (08:25)
[2019-10-17] MEDS: SODIUM CHLORIDE 0.9% 1,000 ML IV SCH ×2 (08:26→20:59)
--- NOTE | 2019-10-17 11:46 | P.CONS ---
History of Present Illness - Reason for Consult Consult date: 10/16/19 ? COVID19 infection Requesting physician: Nicholas Mcneill - Chief Complaint vomiting and abd pain x few days - History of Present Illness Patient is 84-year-old female presenting to the ER yesterday as a transfer from [facility] in this patient who did have a history of recurrent small bowel obstruction patient presented to the hospital with a 5-day history of constipation and not passing any gas the patient for the last 3 days has multiple episodes of vomiting has been mostly yellowish and no hematemesis or coffee-ground been complaining of some left lower abdominal pain more of a colicky nature which at times could be 8 out of 10 and no radiation patient has been evaluated at [facility] B did have a CT abdominal pelvis we did shows evidence of partial to complete small bowel obstruction there is no evidence of mucous plugging in the left lower lobe bronchus and patient did complain of some cough but no sputum production and denies having any fever patient was noticed to have some lymphopenia on the blood performed in the hospital with elevated d-dimer she has been admitted to the floor and been ruled out for COVID-19 infectious was consulted with concern for possible COVID-19 infection patient remains to be afebrile did have an NG she did have elevated white count at 13.7 influenza testing was negative patient did have a chest x- ray with some infiltrate more marked at the right lung base. Review of Systems Positive point has been mentioned in HPI rest of the systems are negative Past Medical History Past Medical History: Cancer, COPD, CVA/TIA, Hyperlipidemia, Hypertension, Pneumonia Additional Past Medical History / Comment(s): colon ca 2007, skin cancer nose removed, osteoporosis. Skin cancer on chest removed 2019, States recent CAT scan shows a mass on her colon. Uses oxygen @ home @ 2 L's. History of Any Multi-Drug Resistant Organisms: None Reported Past Surgical History: Bowel Resection, Tonsillectomy Additional Past Surgical History / Comment(s): cataract surgery bilat. Skin cancer removed from top of nose. Past Anesthesia/Blood Transfusion Reactions: No Reported Reaction Past Psychological History: No Psychological Hx Reported Smoking Status: Former smoker Past Alcohol Use History: None Reported Past Drug Use History: None Reported - Past Family History Father Family Medical History: CVA/TIA Additional Family Medical History / Comment(s): AGE 89- HX TB Mother Additional Family Medical History / Comment(s): AT AGE 88 UNK CAUSE Medications and Allergies Home Medications Medication Instructions Recorded Confirmed Type Calcium Carbonate/Vitamin D3 1 tab PO BID 04/21/14 10/15/19 History [Caltrate 600 Plus D3 Tablet] Ergocalciferol [Vitamin D2 50,000 unit PO QMONTH 04/21/14 10/15/19 History (DRISDOL)] Lisinopril [Zestril] 2.5 mg PO HS 04/21/14 10/15/19 History Multivitamins, Thera [Multivitamin 1 tab PO DAILY 04/21/14 10/15/19 History (formulary)] Simvastatin [Zocor] 10 mg PO HS 04/21/14 10/15/19 History Aspirin EC [Ecotrin Low Dose] 81 mg PO DAILY #1 tablet. 04/22/14 10/15/19 Rx Ferrous Sulfate [Feosol] 325 mg PO DAILY 10/15/19 10/15/19 History Ibuprofen [Motrin] 400 mg PO Q8HR PRN 10/15/19 10/15/19 History Ipratropium-Albuterol Nebulize 3 ml INHALATION RT-QID 10/15/19 10/15/19 History [Duoneb 0.5 mg-3 mg/3 ml Soln] Polyethylene Glycol 3350 [Miralax] 17 gm PO BID 10/15/19 10/15/19 History Allergies Allergy/AdvReac Type Severity Reaction Status Date / Time No Known Allergies Allergy Verified 10/15/19 22:56 Physical Exam Vitals: Vital Signs Temp Pulse Pulse Resp BP BP Pulse Ox 10/16/19 11:00 97.9 F 75 21 154/50 100 10/16/19 07:00 97.9 F 77 24 139/69 96 10/16/19 03:26 97.7 F 75 14 122/66 100 10/15/19 23:51 96.2 F L 80 16 127/58 100 10/15/19 22:16 97.8 F 72 18 154/60 100 Intake and Output 10/16/19 10/16/19 10/16/19 06:59 14:59 22:59 Intake Total 400 Balance 400 Intake: Intake, IV Titration 400 Amount Sodium Chloride 0.9% 1, 400 000 ml @ 100 mls/hr IV . Q10H [facility] Rx#:[id number] Other: Voiding Method Toilet # Voids 2 3 Weight 44.452 kg 44.452 kg GENERAL DESCRIPTION: Elderly female lying in bed, no distress. No tachypnea or accessory muscle of respiration use. HEENT: Shows Pallor , no scleral icterus. Oral mucous membrane is dry. NECK: Trachea central, no thyromegaly. LUNGS: Unlabored breathing. Decreased breath sound at the base. No wheeze or crackle. HEART: S1, S2, regular rate and rhythm. ABDOMEN: Soft, mild distention and lower abdominal tenderness , guarding or rigidity EXTREMITIES: No edema of feet. SKIN: No rash, no masses palpable. NEUROLOGICAL: The patient is awake, alert, oriented x3, mood and affect normal. Results CBC & Chem 7: 10/17/19 06:10 10/17/19 06:10 Labs: Abnormal Lab Results - Last 24 Hours (Table) 10/16/19 10/16/19 10/16/19 Range/Units 01:45 01:45 01:45 WBC 13.7 H (3.8-10.6) k/uL Hgb 10.1 L (11.4-16.0) gm/dL MCHC 29.7 L (31.0-37.0) g/dL Plt Count 452 H (150-450) k/uL Neutrophils # 12.8 H (1.3-7.7) k/uL Lymphocytes # 0.4 L (1.0-4.8) k/uL D-Dimer 1.29 H (<0.60) mg/L FEU Sodium 132 L (137-145) mmol/L Potassium 5.2 H (3.5-5.1) mmol/L Chloride 93 L (98-107) mmol/L Carbon Dioxide 33 H (22-30) mmol/L BUN 19 H (7-17) mg/dL Glucose 116 H (74-99) mg/dL C-Reactive Protein 25.4 H (<10.0) mg/L Assessment and Plan Assessment: Patient presented to the hospital with abdominal pain constipation vomiting in this patient who did have history of recurrent small bowel obstruction likely presenting another episode of bowel obstruction with some evidence of increasing infiltrate right lower lobe possible aspiration pneumonitis not entirely excluded clinic suspicious is low for underlying COVID-19 infection and will likely need to cover for the enteric gram-negative both aerobes and anaerobes (1) Leukocytosis Current Visit: Yes Status: Acute Code(s): D72.829 - ELEVATED WHITE BLOOD CELL COUNT, UNSPECIFIED SNOMED Code(s): 479123106 (2) Small bowel obstruction Current Visit: Yes Status: Acute Code(s): K56.609 - UNSP INTESTNL OBST, UNSP TO PARTIAL VERSUS COMPLETE OBST SNOMED Code(s): 891409057 Plan: 1-we will start the patient on Unasyn 3 g every 6 hours 2-gentle IV fluid We will follow on clinical condition and cultures to further adjust medication if needed Thank you for this consultation we will follow the patient along with you Time with Patient: Greater than 30
--- NOTE | 2019-10-17 13:30 | P.PN ---
Subjective Progress Note Date: 10/17/19 CHIEF COMPLAINT: Bowel obstruction HISTORY OF PRESENT ILLNESS: The patient is a 84-year-old female transferred from outside facility secondary to bowel obstruction. She has past history of bowel obstruction over 6 months ago. She had incidental finding of pneumonia for which she is negative for coronavirus including influenza. She reports no increased abdominal pain. She has a nasogastric tube. She reports feeling hungry overnight eating for the past 5 days. ROS: No reports of nausea and vomiting. No fevers or chills. No new chest pain. PHYSICAL EXAM: VITAL SIGNS: Reviewed CONSTITUTIONAL: Well developed and in no acute distress. EYES: Conjuctivae without sclera icterus. Extraocular movements grossly intact. HEAD, EARS, NOSE, THROAT: Moist buccal mucosa. Head is atraumatic, n ormocephalic. Hears conversational speech. No nasal drainage. NECK: Supple. No thyroidomegaly. RESPIRATORY: Non-labored respirations and equal bilateral excursions. CARDIOVASCULAR: Palpable 2+ radial pulses. ABDOMEN: No peritonitis. Nontender. MUSCULOSKELETAL: No gross deformity of the lower extremities noted. No clubbing. No cyanosis. SKIN: Good skin turgor. Well perfused. NEUROLOGIC: Cranial nerves I through XII grossly intact. No focal or lateralizing signs. PSYCH: Appropriate affect. Alert and oriented to person, place and time. CLINICAL LABS: White blood cell count normal STUDIES: CT of the abdomen and pelvis from past hospitalizations demonstrated marked fecal retention involving the ascending transverse colon to descending colon. Marked scoliosis with spinal was found at that time. This is my personal interpretation. ASSESSMENT: 1. History of bowel obstruction PLAN: 1. CT of the abdomen and pelvis ordered for tomorrow. 2. May have ice chips. 3. Continue TPN for prolonged nothing by mouth status Objective - Vital Signs Vital signs: Vital Signs Temp 97.9 F 10/17/19 04:40 Pulse 84 10/17/19 04:40 Resp 20 10/17/19 04:40 BP 135/71 10/17/19 04:40 Pulse Ox 92 L 10/17/19 04:40 Intake & Output 10/16/19 10/17/19 10/17/19 18:59 06:59 18:59 Weight 44.452 kg Other: Voiding Method Toilet Toilet # Voids 3 1 - Labs CBC & Chem 7: 10/17/19 06:10 10/17/19 06:10 Labs: Abnormal Lab Results - Last 24 Hours (Table) 10/16/19 10/17/19 10/17/19 Range/Units 18:18 06:10 06:10 Hgb 9.8 L (11.4-16.0) gm/dL Hct 33.0 L (34.0-46.0) % MCHC 29.7 L (31.0-37.0) g/dL Lymphocytes # 0.3 L (1.0-4.8) k/uL Sodium 135 L (137-145) mmol/L Potassium 5.6 H (3.5-5.1) mmol/L Chloride 97 L (98-107) mmol/L Carbon Dioxide 32 H (22-30) mmol/L BUN 22 H (7-17) mg/dL Glucose 110 H (74-99) mg/dL Albumin 3.3 L (3.5-5.0) g/dL Assessment and Plan (1) Inadequate dietary intake of protein Current Visit: Yes Status: Acute Code(s): E63.9 - NUTRITIONAL DEFICIENCY, UNSPECIFIED SNOMED Code(s): 030117827 (2) Moderate protein-calorie malnutrition Current Visit: Yes Status: Acute Code(s): E44.0 - MODERATE PROTEIN-CALORIE MALNUTRITION SNOMED Code(s): 357711021 (3) Bowel obstruction Current Visit: Yes Status: Acute Code(s): K56.609 - UNSP INTESTNL OBST, UNSP TO PARTIAL VERSUS COMPLETE OBST SNOMED Code(s): 08006568
--- NOTE | 2019-10-17 14:12 | P.PN ---
Subjective Progress Note Date: 10/17/19 Patient seen and examined at bedside. Patient complains of mild abdominal pain same as yesterday. Patient is resting comfortably with NG tube in place. Patient denies chest pain or shortness of breath nausea vomiting fevers or chills. She is scheduled to have a CT of the abdomen in the morning. Objective - Vital Signs Vital signs: Vital Signs Temp 97.7 F 10/17/19 11:50 Pulse 85 10/17/19 11:50 Resp 16 10/17/19 11:50 BP 137/67 10/17/19 11:50 Pulse Ox 90 L 10/17/19 11:50 Intake & Output 10/16/19 10/17/19 10/17/19 18:59 06:59 18:59 Intake Total 324 Balance 324 Weight 44.452 kg Intake: Intake, IV Titration 324 Amount Fat Emulsion 20% 250 ml 84 In Empty Bag 1 bag @ 21 mls/hr IV DAILY [facility] Rx#: [id number] Mvi, Adult No.4 with Vit 240 K 10 ml Trace (Conc-1Ml/ Dose) 1 ml Sodium Chloride 2.5MEQ/ml Vial 40 meq Magnesium Sulfate gm 1 gm Calcium Gluconate 1 gm Sodium Phosphate 10 mmol In Amino Acid 4.25% -D10w 1,000 ml @ 30 mls/ hr IV .Q24H [facility] Rx#: [id number] Other: Voiding Method Toilet Toilet # Voids 3 1 - Exam General: [non toxic], [no distress], [appears at stated age] Derm: [warm], [dry] Head: [atraumatic], [normocephalic], [symmetric] Eyes: [EOMI], [no lid lag], [anicteric sclera] Mouth: [no lip lesion], [mucus membranes moist] Cardiovascular: [S1S2 reg], [no murmur], [positive posterior tibial pulse bilateral], Lungs: [CTA bilateral], [no rhonchi, no rales] , [no accessory muscle use] Abdominal: [soft], [ mild diffuse tenderness to palpation], [no guarding], [no appreciable organomegaly] Ext: [no gross muscle atrophy], [no edema], [no contractures] Neuro: [ CN II-XI grossly intact], [no focal neuro deficits] Psych: [Alert], [oriented], [appropriate affect] - Labs CBC & Chem 7: 10/17/19 06:10 10/17/19 06:10 Labs: Abnormal Lab Results - Last 24 Hours (Table) 10/16/19 10/17/19 10/17/19 Range/Units 18:18 06:10 06:10 Hgb 9.8 L (11.4-16.0) gm/dL Hct 33.0 L (34.0-46.0) % MCHC 29.7 L (31.0-37.0) g/dL Lymphocytes # 0.3 L (1.0-4.8) k/uL Sodium 135 L (137-145) mmol/L Potassium 5.6 H (3.5-5.1) mmol/L Chloride 97 L (98-107) mmol/L Carbon Dioxide 32 H (22-30) mmol/L BUN 22 H (7-17) mg/dL Glucose 110 H (74-99) mg/dL Albumin 3.3 L (3.5-5.0) g/dL Assessment and Plan Assessment: Acute small bowel obstruction * The patient has risk factors including previous abdominal surgeries * NG tube with low to intermittent suctioning * General surgery recommendations appreciated * Supportive care with IV fluids and antiemetics and pain medication * Follow-up electrolytes and correct as needed * CT of abdomen in the morning right lower lobe possible aspiration pneumonitis NEGATIVE COVID 19 * chest x-ray indicating scattered nonspecific interstitial infiltrates throu ghout both lungs greater the right lower base * Influenza negative * Abx per ID appreciated Hyponatremia Resolved * Secondary to dehydration and poor by mouth intake * Continue gentle hydration NS @ 75 mL an hour COPD on home oxygen currently stable * Chronic hypoxic respoiratory failure * Albuterol inhaler as needed * Continue home oxygen keep oxygen saturation above 92% Disposition * Continue current management follow-up consultants recommendations AM labs
[2019-10-17] MEDS: ATORVASTATIN 10 MG TAB PO SCH (20:52)
[2019-10-17] MEDS: LISINOPRIL 2.5 MG TAB PO SCH (20:52)
[2019-10-17] MEDS ORDERED: MVI, ADULT NO.4 WITH VIT K 10 ML, TRACE (CONC-1ML/DOSE) 1 ML, SODIUM CHLORIDE 2.5MEQ/ML... IV SCH ×7 (21:00)
[2019-10-18] MEDS: AMPICILLIN-SULBACTAM 3 GM in SODIUM CHLORIDE 0.9% 100 ML IVPB SCH ×3 (06:03→18:27)
[2019-10-18 06:52] LABS: Basophils % (A) 1 %; Eosinophils % (A) 0 %; HCT 32.8 % (34.0-46.0); HGB 9.8 gm/dL (11.4-16.0); Hypochromasia Moderate; Lymphocytes # (A) 0.8 k/uL (1.0-4.8); Lymphocytes % (A) 14 %; MCH 25.1 pg (25.0-35.0); MCHC 29.8 g/dL (31.0-37.0); MCV 84.1 fL (80.0-100.0); Mean Platelet Volume 6.3; Monocytes # (A) 0.7 k/uL (0-1.0); Monocytes % (A) 12 %; Neutrophils # (A) 3.7 k/uL (1.3-7.7); Neutrophils % (A) 69 %; Platelet Count 386 k/uL (150-450); RDW 14.6 % (11.5-15.5); WBC 5.4 k/uL (3.8-10.6)
[2019-10-18 07:04] LABS: ALT 7 U/L (4-34); AST 22 U/L (14-36); African American GFR (CKD) >90 (>60 ml/min/1.73 sqM); Albumin 2.9 g/dL (3.5-5.0); Alkaline Phosphatase 79 U/L (38-126); Anion Gap 6 mmol/L; Blood Urea Nitrogen 20 mg/dL (7-17); Calcium 8.3 mg/dL (8.4-10.2); Carbon Dioxide 30 mmol/L (22-30); Chloride 98 mmol/L (98-107); Glucose 104 mg/dL (74-99); Magnesium 1.9 mg/dL (1.6-2.3); Non-African American GFR(CKD) 87 (>60 ml/min/1.73 sqM); Phosphorus 1.9 mg/dL (2.5-4.5); Potassium 3.7 mmol/L (3.5-5.1); Sodium 134 mmol/L (137-145); Total Bilirubin 0.4 mg/dL (0.2-1.3); Total Protein 5.7 g/dL (6.3-8.2)
[2019-10-18] MEDS: ASPIRIN 81 MG PO SCH (08:03)
[2019-10-18] MEDS: SODIUM CHLORIDE 0.9% 1,000 ML IV SCH (08:24)
[2019-10-18] MEDS: PANTOPRAZOLE 40 MG/10 ML VIAL IVP SCH (08:26)
[2019-10-18] MEDS: ONDANSETRON 4 MG/2 ML VIAL IVP PRN (08:26)
[2019-10-18] MEDS: HEPARIN SODIUM,PORCINE 5,000 UNIT/ML 1 ML VIAL SQ SCH ×2 (08:26→17:04)
[2019-10-18] MEDS: IOPAMIDOL CONTRAST (ORAL USE) VIAL PO PRN ×2 (08:35→09:52)
[2019-10-18] MEDS: FAT EMULSION 20% 250 ML in EMPTY BAG 1 BAG IV SCH (08:35)
--- NOTE | 2019-10-18 08:38 | PN ---
PROGRESS NOTE DATE OF SERVICE: 10/17/2019 REASON FOR FOLLOW UP: Small bowel obstruction, leukocytosis, possible aspiration pneumonitis. INTERVAL HISTORY: The patient is currently afebrile. She has been complaining of NG tube bothering her. Denies having any chest pain or cough. Abdominal pain has improved. No further vomiting and no bowel movement. PHYSICAL EXAMINATION: Blood pressure 152/73 with a pulse of 118. Temperature 97.3. She is 93% on 2 L nasal cannula. General description is an elderly female lying in bed in no distress. Respiratory system: Unlabored breathing, decreased breath sounds in the bases. No wheeze. Heart S1, S2. Regular rate and rhythm. Abdomen soft, no tenderness. LABS: Hemoglobin 9.8, white count 4.7. BUN of 22, creatinine 0.70. DIAGNOSTIC IMPRESSION AND PLAN: Patient admitted to hospital with nausea and vomiting in this patient diagnosed with small-bowel obstruction, possible aspiration pneumonitis with elevated white count. Currently covered with Unasyn to continue and monitor clinical course closely. MMODL / IJN: [id number] /
[2019-10-18] MEDS ORDERED: LISINOPRIL 5 MG TAB PO SCH (09:00)
--- NOTE | 2019-10-18 10:49 | CT ---
EXAMINATION TYPE: CT abdomen pelvis w con DATE OF EXAM: 10/18/2019 REFERENCE: Previous study dated 04/28/2019. HISTORY: Small bowel obstruction HISTORY: SBO CT DLP: 342.4 mGy Automated exposure control for dose reduction was used. TECHNIQUE: Helical acquisition through the abdomen and pelvis was obtained following the oral ingesti on of with Oral Contrast and following intravenous administration of 100 mL of Isovue 300. The data w as reformatted in axial, coronal and sagittal projections. FINDINGS: There is bronchiectatic change present in the right lower lobe similar there is no pericar dial fluid. The heart is enlarged. Within the abdomen, there is been interval development of ascites. The liver is normal in size. The g allbladder is unremarkable. The spleen appears normal. Both adrenal glands appear normal. Both kidneys demonstrate function and appear morphologically normal. The pancreas is unremarkable. There is moderate atheromatous calcification of the visualized arterial tree. The bladder is not distended. The uterus and ovaries are not visualized. There is evidence of a distal small bowel obstruction. Contrast has only progressed to the level of t he mid ileum. This This noncontrast film. No definite transition point is seen There is no significant diverticular change. No free air is identified. There is an NG tube present within the stomach. There is a mild dextroscoliosis. There is facet arthropathy in the L5-S1 facets. There is degenerativ e disc disease most marked at L2-3, L4-5 and L5-S1. IMPRESSION: 1. DISTAL SMALL BOWEL OBSTRUCTION WITH NO DEFINITE TRANSITION POINT. 2. RIGHT LOWER LOBE BRONCHIECTASIS. 3. BILATERAL EFFUSIONS AND ASSOCIATED ASCITES. 4. DEGENERATIVE CHANGE WITHIN THE SPINE.
--- NOTE | 2019-10-18 12:24 | P.CRDCN ---
History of Present Illness History of present illness: HISTORY OF PRESENTING ILLNESS This is a pleasant 84-year-old female past medical history significant for colon cancer status post resection, hypertension, dyslipidemia and COPD on home oxygen. 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 We have been asked to see in consultation for arrhythmia. Patient is seen and examined sitting up in bed in no acute distress. She has an NG tube in place secondary to bowel obstruction. EKG reviewed and reveals sinus mechanism with frequent PACs likely multifocal atrial tachycardia. Telemetry tracings reviewed and are intermittent episodes that do appear irregular and could be related to atrial fibrillation. Rates are fluctuating between 80 and 150. She denies symptoms of chest pain, shortness of breath or dizziness. She does have intermittent palpitations. Chest x-ray reveals scattered nonspecific interstitial infiltrates bilaterally. CT of the abdomen and pelvis revealed distal small bowel obstruction with no definite transition point, right lower lobe bronchial ectasis and bilateral effusions. Laboratory data reviewed, WBC 5.4, hemoglobin 9.8, platelets 386, d- dimer on admission 1.29, sodium 134, potassium 3.7, creatinine 0.56, magnesium 1.9, COVID 19 negative. Current daily cardiac medications include aspirin 81 mg daily, lisinopril 2.5 mg at bedtime and simvastatin 10 mg daily. There is an old echocardiogram from 2014 revealing preserved LV systolic function with ejection fraction 55-60%. REVIEW OF SYSTEMS At the time of my exam: CONSTITUTIONAL: Denies fever or chills. CARDIOVASCULAR: Denies chest pain, shortness of breath, orthopnea, PND or palpitations. RESPIRATORY: Denies cough. GASTROINTESTINAL: Denies abdominal pain, diarrhea, constipation, nausea or vomiting. MUSCULOSKELETAL: Denies myalgias. NEUROLOGIC: Denies numbness, tingling or weakness. ENDOCRINE: Denies fatigue, weight change, polydipsia or polyurina. GENITOURINARY: Denies burning, hematuria or urgency with micturation. HEMATOLOGIC: Denies history of anemia or bleeding. PHYSICAL EXAMINATION Blood pressure 149/53 heart rate 95 afebrile and maintaining oxygen saturation on nasal cannula. CONSTITUTIONAL: No apparent distress. HEENT: Head is normocephalic. Pupils are equal, round. Sclerae anicteric. Mucous membranes of the mouth are moist. No JVD. No carotid bruit. CHEST EXAMINATION: Lungs are clear to auscultation. No chest wall tenderness is noted on palpation or with deep breathing. HEART EXAMINATION: Irregular rate and rhythm. S1, S2 heard. No murmurs, gallops or rub. ABDOMEN: Soft, nontender. Positive bowel sounds. EXTREMITIES: 2+ peripheral pulses, no lower extremity edema and no calf tenderness. NEUROLOGIC EXAMINATION: Patient is awake, alert and oriented x3. ASSESSMENT Multifocal atrial tachycardia Small bowel obstruction Hypertension Dyslipidemia COPD PLAN Initiate Cardizem infusion for heart rate control. Repeat EKG in the morning and when necessary for tachycardia. We will attempt to document atrial fibrillation on EKG. Obtain 2-D echocardiogram and Doppler study to assess cardiac structure and function. Thank you kindly for this consultation. Nurse Practitioner note has been reviewed, I agree with a documented findings and plan of care. Patient was seen and examined. Past Medical History Past Medical History: Cancer, COPD, CVA/TIA, Hyperlipidemia, Hypertension, Pne umonia Additional Past Medical History / Comment(s): colon ca 2007, skin cancer nose removed, osteoporosis. Skin cancer on chest removed 2019, States recent CAT scan shows a mass on her colon. Uses oxygen @ home @ 2 L's. History of Any Multi-Drug Resistant Organisms: None Reported Past Surgical History: Bowel Resection, Tonsillectomy Additional Past Surgical History / Comment(s): cataract surgery bilat. Skin cancer removed from top of nose. Past Anesthesia/Blood Transfusion Reactions: No Reported Reaction Past Psychological History: No Psychological Hx Reported Smoking Status: Former smoker Past Alcohol Use History: None Reported Past Drug Use History: None Reported - Past Family History Father Family Medical History: CVA/TIA Additional Family Medical History / Comment(s): AGE 89- HX TB Mother Additional Family Medical History / Comment(s): AT AGE 88 UNK CAUSE Medications and Allergies Home Medications Medication Instructions Recorded Confirmed Type Calcium Carbonate/Vitamin D3 1 tab PO BID 04/21/14 10/15/19 History [Caltrate 600 Plus D3 Tablet] Ergocalciferol [Vitamin D2 50,000 unit PO QMONTH 04/21/14 10/15/19 History (DRISDOL)] Lisinopril [Zestril] 2.5 mg PO HS 04/21/14 10/15/19 History Multivitamins, Thera [Multivitamin 1 tab PO DAILY 04/21/14 10/15/19 History (formulary)] Simvastatin [Zocor] 10 mg PO HS 04/21/14 10/15/19 History Aspirin EC [Ecotrin Low Dose] 81 mg PO DAILY #1 tablet. 04/22/14 10/15/19 Rx Ferrous Sulfate [Feosol] 325 mg PO DAILY 10/15/19 10/15/19 History Ibuprofen [Motrin] 400 mg PO Q8HR PRN 10/15/19 10/15/19 History Ipratropium-Albuterol Nebulize 3 ml INHALATION RT-QID 10/15/19 10/15/19 History [Duoneb 0.5 mg-3 mg/3 ml Soln] Polyethylene Glycol 3350 [Miralax] 17 gm PO BID 10/15/19 10/15/19 History Allergies Allergy/AdvReac Type Severity Reaction Status Date / Time No Known Allergies Allergy Verified 10/15/19 22:56 Physical Exam Vitals: Vital Signs Temp Pulse Resp BP Pulse Ox 10/18/19 11:47 97.6 F 95 18 149/53 98 10/18/19 04:17 98.6 F 73 18 150/63 94 L 10/17/19 20:51 97.3 F L 118 H 16 152/73 93 L Intake and Output 10/17/19 10/18/19 10/18/19 22:59 06:59 14:59 Intake Total 393 240 Output Total 300 Balance 393 -60 Intake: Intake, IV Titration 393 240 Amount Fat Emulsion 20% 250 ml 63 In Empty Bag 1 bag @ 21 mls/hr IV DAILY [facility] Rx#: [id number] Mvi, Adult No.4 with Vit 105 240 K 10 ml Trace (Conc-1Ml/ Dose) 1 ml Sodium Chloride 2.5MEQ/ml Vial 40 meq Magnesium Sulfate gm 1 gm Calcium Gluconate 1 gm Sodium Phosphate 10 mmol In Amino Acid 4.25% -D10w 1,000 ml @ 30 mls/ hr IV .Q24H [facility] Rx#: [id number] Sodium Chloride 0.9% 1, 225 000 ml @ 75 mls/hr IV . [id number] [facility] Rx#:[id number] Output: Gastric Drainage 300 Other: Voiding Method Toilet # Voids 1 1 Results 10/18/19 06:27 10/18/19 06:27 Cardiac Enzymes 10/18/19 Range/Units 06:27 AST 22 (14-36) U/L CBC 10/18/19 Range/Units 06:27 WBC 5.4 (3.8-10.6) k/uL RBC 3.90 (3.80-5.40) m/uL Hgb 9.8 L (11.4-16.0) gm/dL Hct 32.8 L (34.0-46.0) % Plt Count 386 (150-450) k/uL Comprehensive Metabolic Panel 10/18/19 Range/Units 06:27 Sodium 134 L (137-145) mmol/L Potassium 3.7 (3.5-5.1) mmol/L Chloride 98 (98-107) mmol/L Carbon Dioxide 30 (22-30) mmol/L BUN 20 H (7-17) mg/dL Creatinine 0.56 (0.52-1.04) mg/dL Glucose 104 H (74-99) mg/dL Calcium 8.3 L (8.4-10.2) mg/dL AST 22 (14-36) U/L ALT 7 (4-34) U/L Alkaline Phosphatase 79 (38-126) U/L Total Protein 5.7 L (6.3-8.2) g/dL Albumin 2.9 L (3.5-5.0) g/dL Current Medications Generic Name Dose Route Start Last Admin Trade Name Freq PRN Reason Stop Dose Admin Albuterol Sulfate 2 puff 10/16/19 08:25 10/16/19 19:31 Ventolin Hfa Inhaler INHALATION 2 puff RT-Q4H PRN Administration Shortness Of Breath Or Wheezin Aspirin 81 mg 10/16/19 09:00 10/18/19 08:03 Aspirin PO Not Given DAILY [facility] Atorvastatin Calcium 10 mg 10/16/19 21:00 10/17/19 20:52 Lipitor PO 10 mg HS [facility] Administration Heparin Sodium (Porcine) 5,000 unit 10/16/19 08:00 10/18/19 08:26 Heparin SQ 5,000 unit Q8HR [facility] Administration Sodium Chloride 1,000 mls @ 75 mls/hr 10/16/19 16:15 10/18/19 08:24 Saline 0.9% IV 75 mls/hr .[id number] [facility] Administration Ampicillin Sodium/Sulbactam 100 mls @ 200 mls/hr 10/16/19 18:00 10/18/19 06:03 Sodium 3 gm/ Sodium Chloride IVPB 200 mls/hr Q6HR [facility] Administration Fat Emulsion Intravenous 250 250 mls @ 21 mls/hr 10/17/19 09:00 10/18/19 08:35 ml/ IV Solution IV 21 mls/hr DAILY [facility] Administration Parenteral Vitamin Supplement 1,011 mls @ 55 mls/hr 10/19/19 01:00 10 ml/ Chromium/Copper/ IV Manganese/Seleni/Zn 1 ml/ .[id number] [facility] Amino Ac/Electrol/Dextrose/ Calcium Diltiazem HCl 125 mg/ Sodium 125 mls @ 5 mls/hr 10/18/19 11:45 Chloride IV .Q24H [facility] 5 MG/HR Metoprolol Tartrate 2.5 mg 10/18/19 12:00 Lopressor IVP Q8H [facility] Morphine Sulfate 4 mg 10/15/19 22:39 10/17/19 01:30 Morphine Sulfate (Inj) IVP 4 mg Q4HR PRN Administration Pain Ondansetron HCl 4 mg 10/15/19 22:39 10/18/19 08:26 Zofran IVP 4 mg Q6HR PRN Administration Nausea And Vomiting Pantoprazole Sodium 40 mg 10/16/19 09:00 10/18/19 08:26 Protonix IVP 40 mg DAILY [facility] Administration Intake and Output 10/17/19 10/18/19 10/18/19 22:59 06:59 14:59 Intake Total 393 240 Output Total 300 Balance 393 -60 Intake: Intake, IV Titration 393 240 Amount Fat Emulsion 20% 250 ml 63 In Empty Bag 1 bag @ 21 mls/hr IV DAILY [facility] Rx#: [id number] Mvi, Adult No.4 with Vit 105 240 K 10 ml Trace (Conc-1Ml/ Dose) 1 ml Sodium Chloride 2.5MEQ/ml Vial 40 meq Magnesium Sulfate gm 1 gm Calcium Gluconate 1 gm Sodium Phosphate 10 mmol In Amino Acid 4.25% -D10w 1,000 ml @ 30 mls/ hr IV .Q24H [facility] Rx#: [id number] Sodium Chloride 0.9% 1, 225 000 ml @ 75 mls/hr IV . [id number] [facility] Rx#:[id number] Output: Gastric Drainage 300 Other: Voiding Method Toilet # Voids 1 1 10/18/19 06:27 10/18/19 06:27
[2019-10-18] MEDS: MORPHINE SULFATE 4 MG/ML SYRINGE IVP PRN ×2 (12:35→17:04)
--- NOTE | 2019-10-18 13:04 | P.PN ---
Subjective Progress Note Date: 10/18/19 CHIEF COMPLAINT: Bowel obstruction HISTORY OF PRESENT ILLNESS: The patient is a 84-year-old female transferred from outside facility secondary to bowel obstruction. She has past history of bowel obstruction over 6 months ago. She had incidental finding of pneumonia for which she is negative for coronavirus including influenza. She has a nasogastric tube. She is on TPN. She reports feeling worse than yesterday. She is tolerating ice chips however. No passage of flatus or bowel movements since admission. She is sitting up in a chair. ROS: No reports of nausea and vomiting. No fevers or chills. No new chest pain. PHYSICAL EXAM: VITAL SIGNS: Reviewed CONSTITUTIONAL: Well developed and in no acute distress. EYES: Conjuctivae without sclera icterus. Extraocular movements grossly intact. HEAD, EARS, NOSE, THROAT: Moist buccal mucosa. Head is atraumatic, normocephalic. Hears conversational speech. No nasal drainage. NECK: Supple. No thyroidomegaly. RESPIRATORY: Non-labored respirations and equal bilateral excursions. CARDIOVASCULAR: Palpable 2+ radial pulses. ABDOMEN: No peritonitis. Nontender. MUSCULOSKELETAL: No gross deformity of the lower extremities noted. No c lubbing. No cyanosis. SKIN: Good skin turgor. Well perfused. NEUROLOGIC: Cranial nerves I through XII grossly intact. No focal or lateralizing signs. PSYCH: Appropriate affect. Alert and oriented to person, place and time. CLINICAL LABS: White blood cell count normal at 5.4.Potassium down from 5.5-3.7. STUDIES: CT of the abdomen and pelvis today reviewed demonstrating diffuse intra-abdominal ascites. Small bowel dilated to 3 mm. Mesenteric swirl identified within the mid abdomen deep to the umbilicus suspicious for internal hernia. No perforation identified. No free air. Lumbar scoliosis identified. This is my personal interpretation. REPORT: Distal small bowel obstruction identified without transition point ASSESSMENT: 1. History of bowel obstruction 2. Protein calorie malnutrition PLAN: 1. She has persistent small bowel obstruction and is on TPN. 2. Recommend surgical intervention exploratory laparotomy with findings of mesenteric swirl, internal hernia Objective - Vital Signs Vital signs: Vital Signs Temp 97.6 F 10/18/19 11:47 Pulse 95 10/18/19 11:47 Resp 18 10/18/19 11:47 BP 149/53 10/18/19 11:47 Pulse Ox 98 10/18/19 11:47 Intake & Output 10/17/19 10/18/19 10/18/19 18:59 06:59 18:59 Intake Total 324 633 Output Total 300 Balance 324 333 Intake: Intake, IV Titration 324 633 Amount Fat Emulsion 20% 250 ml 84 63 In Empty Bag 1 bag @ 21 mls/hr IV DAILY [facility] Rx#: [id number] Mvi, Adult No.4 with Vit 240 345 K 10 ml Trace (Conc-1Ml/ Dose) 1 ml Sodium Chloride 2.5MEQ/ml Vial 40 meq Magnesium Sulfate gm 1 gm Calcium Gluconate 1 gm Sodium Phosphate 10 mmol In Amino Acid 4.25% -D10w 1,000 ml @ 30 mls/ hr IV .Q24H [facility] Rx#: [id number] Sodium Chloride 0.9% 1, 225 000 ml @ 75 mls/hr IV . [id number] [facility] Rx#:[id number] Output: Gastric Drainage 300 Other: Voiding Method Toilet Toilet # Voids 3 1 - Labs CBC & Chem 7: 10/18/19 06:27 10/18/19 06:27 Labs: Abnormal Lab Results - Last 24 Hours (Table) 10/18/19 10/18/19 Range/Units 06:27 06:27 Hgb 9.8 L (11.4-16.0) gm/dL Hct 32.8 L (34.0-46.0) % MCHC 29.8 L (31.0-37.0) g/dL Lymphocytes # 0.8 L (1.0-4.8) k/uL Sodium 134 L (137-145) mmol/L BUN 20 H (7-17) mg/dL Glucose 104 H (74-99) mg/dL Calcium 8.3 L (8.4-10.2) mg/dL Phosphorus 1.9 L (2.5-4.5) mg/dL Total Protein 5.7 L (6.3-8.2) g/dL Albumin 2.9 L (3.5-5.0) g/dL Assessment and Plan (1) Inadequate dietary intake of protein Current Visit: Yes Status: Acute Code(s): E63.9 - NUTRITIONAL DEFICIENCY, UNSPECIFIED SNOMED Code(s): 059524968 (2) Moderate protein-calorie malnutrition Current Visit: Yes Status: Acute Code(s): E44.0 - MODERATE PROTEIN-CALORIE MALNUTRITION SNOMED Code(s): 331698306 (3) Bowel obstruction Current Visit: Yes Status: Acute Code(s): K56.609 - UNSP INTESTNL OBST, UNSP TO PARTIAL VERSUS COMPLETE OBST SNOMED Code(s): 84115073
[2019-10-18] MEDS ORDERED: DILTIAZEM 125 MG in SODIUM CHLORIDE 0.9% 100 ML IV SCH (13:30)
[2019-10-18] MEDS: METOPROLOL TARTRATE 5 MG/5 ML VIAL IVP SCH ×2 (14:30→21:18)
--- NOTE | 2019-10-18 17:50 | P.PN ---
Subjective Progress Note Date: 10/18/19 Patient seen and examined at bedside. Continues to feel nauseated. Nausea is relieved with pain medication. Today patient appears to have gone into atrial fibrillation. Patient transferred to cardiac floor. Metoprolol IV push initiated. Cardiology will be consulted. Patient denies chest pain shortness of breath fever or chills. Patient did have a CT of the abdomen and pelvis today. There has been interval development of ascites with distal small bowel obstruction with no definite transition point. Right lower lobe bronchial ectostosis also appreciated on CT. Objective - Vital Signs Vital signs: Vital Signs Temp 97.8 F 10/18/19 16:00 Pulse 100 10/18/19 16:00 Resp 17 10/18/19 16:00 BP 142/89 10/18/19 16:00 Pulse Ox 100 10/18/19 16:00 Intake & Output 10/17/19 10/18/19 10/18/19 18:59 06:59 18:59 Intake Total 324 633 Output Total 300 Balance 324 333 Intake: Intake, IV Titration 324 633 Amount Fat Emulsion 20% 250 ml 84 63 In Empty Bag 1 bag @ 21 mls/hr IV DAILY [facility] Rx#: [id number] Mvi, Adult No.4 with Vit 240 345 K 10 ml Trace (Conc-1Ml/ Dose) 1 ml Sodium Chloride 2.5MEQ/ml Vial 40 meq Magnesium Sulfate gm 1 gm Calcium Gluconate 1 gm Sodium Phosphate 10 mmol In Amino Acid 4.25% -D10w 1,000 ml @ 30 mls/ hr IV .Q24H [facility] Rx#: [id number] Sodium Chloride 0.9% 1, 225 000 ml @ 75 mls/hr IV . [id number] [facility] Rx#:[id number] Output: Gastric Drainage 300 Other: Voiding Method Toilet Toilet # Voids 3 1 - Exam General: [non toxic], [no distress], [appears at stated age] Derm: [warm], [dry] Head: [atraumatic], [normocephalic], [symmetric] Eyes: [EOMI], [no lid lag], [anicteric sclera] Mouth: [no lip lesion], [mucus membranes moist] Cardiovascular: [S1S2 reg], [no murmur], [positive posterior tibial pulse bilateral], Lungs: [bilateral crackles], [no rhonchi, no rales] , [no accessory muscle use] Abdominal: [soft], [ nontender to palpation], [no guarding], [no appreciable organomegaly] Ext: [no gross muscle atrophy], [no edema], [no contractures] Neuro: [ CN II-XI grossly intact], [no focal neuro deficits] Psych: [Alert], [oriented], [appropriate affect] - Labs CBC & Chem 7: 10/18/19 06:27 10/18/19 06:27 Labs: Abnormal Lab Results - Last 24 Hours (Table) 10/18/19 10/18/19 Range/Units 06:27 06:27 Hgb 9.8 L (11.4-16.0) gm/dL Hct 32.8 L (34.0-46.0) % MCHC 29.8 L (31.0-37.0) g/dL Lymphocytes # 0.8 L (1.0-4.8) k/uL Sodium 134 L (137-145) mmol/L BUN 20 H (7-17) mg/dL Glucose 104 H (74-99) mg/dL Calcium 8.3 L (8.4-10.2) mg/dL Phosphorus 1.9 L (2.5-4.5) mg/dL Total Protein 5.7 L (6.3-8.2) g/dL Albumin 2.9 L (3.5-5.0) g/dL Assessment and Plan Plan: Arrythmia concern for atrial fib * metoprolol IVP prescribed * consult cardiology * transfer to cardiac floor * ASA daily * ekg ordered Acute small bowel obstruction * The patient has risk factors including previous abdominal surgeries * NG tube with low to intermittent suctioning * General surgery recommendations appreciated * Supportive care with IV fluids and antiemetics and pain medication * Follow-up electrolytes and correct as needed * CT reviewed right lower lobe possible aspiration pneumonitis NEGATIVE COVID 19 * CT confirms right lower lobe bronchiectasis * Influenza negative * Abx per ID appreciated Hyponatremia improved * Secondary to dehydration and poor by mouth intake * Continue gentle hydration NS @ 75 mL an hour COPD on home oxygen currently stable * Chronic hypoxic respoiratory failure * Albuterol inhaler as needed * Continue home oxygen keep oxygen saturation above 92% Disposition * Continue current management follow-up consultants recommendations AM labs
--- NOTE | 2019-10-18 21:54 | PN ---
PROGRESS NOTE DATE OF SERVICE: 10/18/2019 REASON FOR FOLLOW UP: Bowel obstruction and question of aspiration pneumonia. INTERVAL HISTORY: The patient is currently afebrile. The patient did develop atrial fibrillation with RVR for which the patient transferred to the telemetry floor. The patient denies having any chest pain. Did have some cough but no sputum. Did have off and on abdominal pain, but no worsening. Did not have any bowel movement or passing any gas. PHYSICAL EXAMINATION: Blood pressure 140/72 with a pulse of 86, temperature 97.7. She is 96% on 3 L nasal cannula. General description is an elderly female lying in bed in no distress. Respiratory system: Unlabored breathing, decreased breath sounds in the bases. No wheeze. Heart S1, S2. Regular rate and rhythm. Abdomen soft, no tenderness. LABS: Hemoglobin is 9.8 with white count 5.4, BUN of 20, creatinine 0.56. DIAGNOSTIC IMPRESSION AND PLAN: Patient admitted to the hospital with vomiting in this patient who has been diagnosed with small-bowel obstruction transition zone 195 with a component of possible aspiration pneumonia. The patient is covered with Unasyn to continue. White count has normalized and monitor clinical course closely. MMODL / IJN: [id number] /
[2019-10-19] MEDS: AMPICILLIN-SULBACTAM 3 GM in SODIUM CHLORIDE 0.9% 100 ML IVPB SCH ×4 (00:12→18:34)
[2019-10-19] MEDS: HEPARIN SODIUM,PORCINE 5,000 UNIT/ML 1 ML VIAL SQ SCH ×3 (00:12→18:54)
[2019-10-19] MEDS: MVI, ADULT NO.4 WITH VIT K 10 ML, TRACE (CONC-1ML/DOSE) 1 ML in AMINO ACID 4.25%-D10W+L... IV SCH ×3 (01:01)
[2019-10-19] MEDS: ATORVASTATIN 10 MG TAB PO SCH (06:14)
[2019-10-19 06:44] LABS: African American GFR (CKD) >90 (>60 ml/min/1.73 sqM); Anion Gap 7 mmol/L; Blood Urea Nitrogen 20 mg/dL (7-17); Calcium 8.4 mg/dL (8.4-10.2); Carbon Dioxide 32 mmol/L (22-30); Chloride 93 mmol/L (98-107); Glucose 117 mg/dL (74-99); Magnesium 1.9 mg/dL (1.6-2.3); Non-African American GFR(CKD) 88 (>60 ml/min/1.73 sqM); Phosphorus 2.1 mg/dL (2.5-4.5); Potassium 3.4 mmol/L (3.5-5.1); Sodium 132 mmol/L (137-145)
[2019-10-19] MEDS: METOPROLOL TARTRATE 5 MG/5 ML VIAL IVP SCH ×3 (07:00→18:35)
[2019-10-19] MEDS: SODIUM CHLORIDE 0.9% 1,000 ML IV SCH ×2 (07:02→12:30)
[2019-10-19] MEDS: FAT EMULSION 20% 250 ML in EMPTY BAG 1 BAG IV SCH (08:32)
[2019-10-19] MEDS: POTASSIUM CHLORIDE 10 MEQ in WATER FOR INJECTION 1 100ML.BAG IVPB SCH ×4 (08:32→12:31)
[2019-10-19] MEDS: ASPIRIN 81 MG PO SCH (08:33)
[2019-10-19] MEDS: PANTOPRAZOLE 40 MG/10 ML VIAL IVP SCH (08:33)
[2019-10-19] MEDS: MORPHINE SULFATE 4 MG/ML SYRINGE IVP PRN (08:52)
[2019-10-19] MEDS: ONDANSETRON 4 MG/2 ML VIAL IVP PRN (08:52)
--- NOTE | 2019-10-19 10:00 | ECHOF ---
Referral Reason:possible afib MEASUREMENTS -------- HEIGHT: 162.6 cm WEIGHT: 41.7 kg BP: 142/63 RVIDd: 2.5 cm (< 3.3) IVSd: 1.0 cm (0.6 - 1.1) LVIDd: 3.5 cm (3.9 - 5.3) LVPWd: 1.3 cm (0.6 - 1.1) IVSs: 1.4 cm LVIDs: 2.3 cm LVPWs: 1.9 cm LAESV Index (A-L): 31.77 ml/m Ao Diam: 2.7 cm (2.0 - 3.7) AV Cusp: 1.4 cm (1.5 - 2.6) LA Diam: 3.0 cm (2.7 - 3.8) MV EXCURSION: 24.989 mm (> 18.000) MV EF SLOPE: 61 mm/s (70 - 150) EPSS: 0.6 cm MV E Royce: 0.64 m/s MV DecT: 204 ms MV A Royce: 0.82 m/s MV E/A Ratio: 0.78 RAP: 5.00 mmHg RVSP: 38.46 mmHg FINDINGS -------- Sinus rhythm with extra systolic beats. This was a technically good study. The left ventricular size is normal. There is mild concentric left ventricular hypertrophy. Overa ll left ventricular systolic function is normal with, an EF between 55 - 60 %. The diastolic fillin g pattern is normal for the age of the patient 7.86. The right ventricle is normal in size. LA is midly dilated 29-33ml/m2. The right atrial size is normal. The aortic valve is trileaflet, and appears structurally normal. No aortic stenosis or regurgitation. The mitral valve leaflets are mildly thickened. Mild mitral regurgitation is present. The tricuspid valve appears structurally normal. Mild tricuspid regurgitation present. There is m ild pulmonary hypertension. The right ventricular systolic pressure, as measured by Doppler, is 38. 46mmHg. Trace/mild (physiologic) pulmonic regurgitation. The aortic root size is normal. Normal inferior vena cava with normal inspiratory collapse consistent with estimated right atrial pre ssure of 5 mmHg. There is no pericardial effusion. CONCLUSIONS -------- 1. There is mild concentric left ventricular hypertrophy. 2. Overall left ventricular systolic function is normal with, an EF between 55 - 60 %. 3. The diastolic filling pattern is normal for the age of the patient 7.86 4. LA is midly dilated 29-33ml/m2. 5. The aortic valve is trileaflet, and appears structurally normal. No aortic stenosis or regurgitati on. 6. The mitral valve leaflets are mildly thickened. 7. Mild mitral regurgitation is present. 8. Mild tricuspid regurgitation present. 9. There is mild pulmonary hypertension. 10. Trace/mild (physiologic) pulmonic regurgitation. 11. Normal inferior vena cava with normal inspiratory collapse consistent with estimated right atrial pressure of 5 mmHg. MAGNETIC TESTING TECHNICIAN: Ramandeep Hoskins RDCS
[2019-10-19] MEDS: ALBUTEROL HFA INHALER INHALATION PRN (11:42)
[2019-10-19] MEDS ORDERED: SODIUM CHLORIDE 0.9% 1,000 ML IV ONE (14:54)
[2019-10-19] MEDS ORDERED: LACTATED RINGERS 1,000 ML IV ONE ×2 (15:27→16:16)
--- NOTE | 2019-10-19 16:15 | P.OP ---
Date of Procedure: 10/19/19 Preoperative Diagnosis: Small bowel obstruction Postoperative Diagnosis: Small bowel obstruction secondary to internal hernia Procedure(s) Performed: Exploratory laparotomy Lysis of adhesion Small bowel resection Anesthesia: SHERON Surgeon: Mak Colon Estimated Blood Loss (ml): 10 Pathology: other (Small bowel) Condition: stable Disposition: PACU Description of Procedure: The patient's placed on the operative table in supine position. She received general anesthesia. Her abdomen was prepped and draped using sterile fashion. A midline incision was made and then upon entering the abdomen adhesions were lysed to the anterior abdominal wall. The small bowel appeared to be dilated. The small bowel was followed towards the pelvis and in the pelvis there was an internal hernia seen. The bowel was quite thickened and scarred. At this point a limited small bowel resection was performed. The small bowel was then transected approximately distally with a GI stapler and then using the Enseal device the mesentery the bowel was divided. A [id number] functional end -to-end staple anastomosis created using the LORI and TA stapler. The window in the mesentery was closed with 3-0 Vicryl suture. The abdomen was irrigated Appeared there was no further evidence of bowel obstruction. Small bowel was run from ligament of Treitz to the terminal ileum. At this point the fascia was closed with looped #1 PDS suture. Skin was closed darrell. Patient top she will was sent to recovery in stable condition.
[2019-10-19] MEDS ORDERED: HYDROcodone/APAP 5-325MG 1 EACH TAB PO PRN (16:16)
--- NOTE | 2019-10-19 19:39 | P.PN ---
Progress Note - Text Progress Note Date: 10/19/19 Presenting complaint: Abdominal pain Interval history: 84-year-old patient of , transferred from outside facility with a computed tomography scan showing evidence of high-grade small bowel obstruction. Patient not eating for 3 days. NG tube was placed. Today-NG tube in place. Pending to go down for surgery. No flatus. No nausea vomiting. Review of systems: Was done for constitutional, cardiovascular, GI, pulmonary. relevant finding as above Active Medications Hydrocodone Bitart/Acetaminophen ([place] 5-325) 2 each PO Q6HR PRN PRN Reason: Moderate to Severe Pain Albuterol Sulfate (Ventolin Hfa Inhaler) 2 puff INHALATION RT-Q4H PRN PRN Reason: Shortness Of Breath Or Wheezin Last Admin: 10/19/19 11:42 Dose: 2 puff Documented by: Aspirin (Aspirin) 81 mg PO DAILY [facility] Last Admin: 10/19/19 08:33 Dose: Not Given Documented by: Atorvastatin Calcium (Lipitor) 10 mg PO HS [facility] Last Admin: 10/19/19 06:14 Dose: Not Given Documented by: Enoxaparin Sodium (Lovenox) 40 mg SQ DAILY [facility] Hydromorphone HCl (Dilaudid) 0.5 mg IVP Q3HR PRN PRN Reason: Moderate to Severe Pain Sodium Chloride (Saline 0.9%) 1,000 mls @ 75 mls/hr IV .[id number] [facility] Last Admin: 10/19/19 12:30 Dose: Not Given Documented by: Ampicillin Sodium/Sulbactam (Sodium 3 gm/ Sodium Chloride) 100 mls @ 200 mls/hr IVPB Q6HR [facility] Last Admin: 10/19/19 18:34 Dose: 200 mls/hr Documented by: Fat Emulsion Intravenous 250 (ml/ IV Solution) 250 mls @ 21 mls/hr IV DAILY [facility] Last Admin: 10/19/19 08:32 Dose: 21 mls/hr Documented by: Parenteral Vitamin Supplement 10 ml/ Chromium/Copper/Manganese/Seleni/Zn 1 ml/Amino Ac/Electrol/Dextrose/Calcium 1,011 mls @ 55 mls/hr IV .[id number] [facility] Last Admin: 10/19/19 01:01 Dose: 55 mls/hr Documented by: Lactated Ringer's (Lactated Ringers) 1,000 mls @ 125 mls/hr IV .Q8H ONE Stop: 10/20/19 00:15 Last Admin: 10/19/19 18:34 Dose: 125 mls/hr Documented by: Metoprolol Tartrate (Lopressor) 5 mg IVP Q6HR [facility] Last Admin: 10/19/19 18:35 Dose: Not Given Documented by: Morphine Sulfate (Morphine Sulfate (Inj)) 4 mg IVP Q4HR PRN PRN Reason: Pain Last Admin: 10/19/19 08:52 Dose: 4 mg Documented by: Naloxone HCl (Narcan) 0.2 mg IV Q2M PRN PRN Reason: Opioid Reversal Ondansetron HCl (Zofran) 4 mg IVP Q6HR PRN PRN Reason: Nausea And Vomiting Last Admin: 10/19/19 08:52 Dose: 4 mg Documented by: Pantoprazole Sodium (Protonix) 40 mg IVP DAILY [facility] Last Admin: 10/19/19 08:33 Dose: 40 mg Documented by: On examination: VITAL SIGNS: 97.7, 62, 18, 140 10 77, 97% on 3 L GENERAL APPEARANCE: BMI 15.9, laying in bed, awake tired. HEENT: Normal external appearance of nose and ear. Oral cavity dry, NG tube EYES: Pupils equal. Conjunctiva pale NECK: JVD not raised. Mass not palpable. RESPIRATORY: Respiratory effort normal. Decreased breath sounds. CARDIOVASCULAR: First and second sounds normal. No edema. ABDOMEN: Soft. Minimal tenderness, Liver and spleen not palpable.. No mass palpable. PSYCHIATRY: Alert and oriented x3. Mood and affect normal. INVESTIGATIONS, reviewed in the clinical context: White count 5.4 hemoglobin 9.8 progression 3.4 creatinine 0.53 Previous testin-D echo-EF 55-60% Computed tomography scan of the abdomen-distal small bowel obstruction bilateral effusions with associated ascites right lower lobe bronchiectasis Assessment: -Acute distal small bowel obstruction. Pending surgery this afternoon 11- possible aspiration pneumonia -COPD in an ex-smoker -Essential hypertension -Hyperlipidemia -Chronic osteoporosis -Chronic hypoxic respiratory failure on 2 L of oxygen at home -Severe protein calorie malnutrition Plan: Patient's on IV Unasyn. IV fluids. NG tube. Due to go down for surgery this afternoon. Care was discussed with the patient.
[2019-10-19 23:14] LABS: Glucose,Whole Blood 150 mg/dL (75-99)
[2019-10-19] MEDS: NALOXONE 0.4 MG/ML 1 ML VIAL IV PRN ×3 (23:25→23:45)
--- NOTE | 2019-10-19 23:34 | PN ---
PROGRESS NOTE DATE OF SERVICE: 10/19/2019 REASON FOR FOLLOWUP: Aspiration pneumonia. INTERVAL HISTORY: The patient is currently afebrile. The patient has been breathing comfortably. Still has the NG in. No further vomiting. She did have a congested cough, not bringing up any sputum. Abdominal pain has been about the same. No worsening. Did not have any bowel movement. PHYSICAL EXAMINATION: Blood pressure 130/63 with a pulse of 91, temperature 97.7. She is 98% on 6 L nasal cannula. General description is an elderly female lying in bed in no distress. RESPIRATORY SYSTEM: Unlabored breathing. Clear to auscultation anteriorly. HEART: S1, S2. Regular rate and rhythm. ABDOMEN: Soft. No tenderness. LABS: BUN of 20, creatinine 0.53. Blood culture has been negative. DIAGNOSTIC IMPRESSION AND PLAN: Patient admitted to hospital with bowel obstruction, vomiting and possible component of pneumonia. Patient is currently covered with Unasyn; to continue. Monitor her clinical course closely. Continue supportive care. MMODL / IJN: [id number] /
[2019-10-20] MEDS: AMPICILLIN-SULBACTAM 3 GM in SODIUM CHLORIDE 0.9% 100 ML IVPB SCH ×3 (00:45→17:57)
[2019-10-20] MEDS: MVI, ADULT NO.4 WITH VIT K 10 ML, TRACE (CONC-1ML/DOSE) 1 ML in AMINO ACID 4.25%-D10W+L... IV SCH ×6 (01:45→20:02)
[2019-10-20] MEDS: ATORVASTATIN 10 MG TAB PO SCH ×2 (05:42→22:50)
[2019-10-20] MEDS: METOPROLOL TARTRATE 5 MG/5 ML VIAL IVP SCH ×5 (05:44→22:49)
[2019-10-20 06:50] LABS: Albumin 2.5 g/dL (3.5-5.0); Calcium 7.9 mg/dL (8.4-10.2); Magnesium 1.8 mg/dL (1.6-2.3); Phosphorus 3.6 mg/dL (2.5-4.5); Total Bilirubin 0.2 mg/dL (0.2-1.3); Total Protein 5.1 g/dL (6.3-8.2)
[2019-10-20 06:56] LABS: Basophils % (A) 0 %; Eosinophils % (A) 0 %; HCT 33.4 % (34.0-46.0); HGB 9.9 gm/dL (11.4-16.0); Hypochromasia Marked; Lymphocytes # (A) 0.3 k/uL (1.0-4.8); Lymphocytes % (A) 2 %; MCH 25.1 pg (25.0-35.0); MCHC 29.7 g/dL (31.0-37.0); MCV 84.3 fL (80.0-100.0); Mean Platelet Volume 7.7; Monocytes # (A) 1.4 k/uL (0-1.0); Monocytes % (A) 7 %; Neutrophils # (A) 17.1 k/uL (1.3-7.7); Neutrophils % (A) 89 %; Platelet Count 344 k/uL (150-450); RBC 3.96 m/uL (3.80-5.40); RDW 14.1 % (11.5-15.5); WBC 19.3 k/uL (3.8-10.6)
[2019-10-20] MEDS: ALBUTEROL HFA INHALER INHALATION PRN ×2 (08:22→11:29)
[2019-10-20] MEDS ORDERED: ENOXAPARIN 40 MG/0.4 ML SYRINGE SQ SCH (09:00)
[2019-10-20] MEDS: SODIUM CHLORIDE 0.9% 1,000 ML IV SCH (09:13)
[2019-10-20] MEDS: PANTOPRAZOLE 40 MG/10 ML VIAL IVP SCH (09:17)
[2019-10-20] MEDS: HYDROmorphone 0.5 MG/0.5 ML SYRINGE IVP PRN ×2 (09:18→22:49)
[2019-10-20] MEDS: ASPIRIN 81 MG PO SCH (09:19)
[2019-10-20] MEDS: FAT EMULSION 20% 250 ML in EMPTY BAG 1 BAG IV SCH (10:10)
--- NOTE | 2019-10-20 10:15 | P.PN ---
Subjective Patient was seen and examined sitting up in bed. She is postoperative day #1 exploratory laparotomy, lysis of adhesion and small bowel resection. She is complaining of some mild abdominal pain and nausea. Blood pressure 124/73 heart rate 116 afebrile and maintaining oxygen saturation on nasal cannula. Currently maintained on TPN, antibiotics lipids lactated Ringer's at 125 mL per hour, magnesium supplementation and pain management with IV morphine. Laboratory data reviewed, WBC 19.3, hemoglobin 9.9, platelets 344, sodium 132, potassium 4.0, magnesium 1.8, albumin 2.5. Urine output 2700 mL over the previous 24 hours, maintaining a negative fluid balance. Indwelling Frank catheter in place. HEENT: Head is atraumatic, normocephalic. Pupils are equal, round. Sclerae anicteric. Conjunctivae are clear. Mucous membranes of the mouth are moist. Neck is supple. NG tube in place. ABDOMEN: Soft, nontender. NEUROLOGIC: Patient is awake, alert and oriented x3. ASSESSMENT Small bowel obstruction status post exploratory laparotomy, lysis of adhesions and small bowel resection. Postoperative day #1 PLAN Continue TPN and nothing by mouth. Lovenox for DVT prophylaxis. Morphine and Zofran for pain and anti-nausea. The above impression and plan of care have been discussed and directed by the signing physician. Marilyn Chang, nurse practitioner, acting as scribe for signing physician. Objective - Vital Signs Vital signs: Vital Signs Temp 98.5 F 10/20/19 08:00 Pulse 116 H 10/20/19 09:17 Resp 24 10/20/19 08:00 BP 124/73 10/20/19 08:00 Pulse Ox 98 10/20/19 08:00 Intake & Output 10/19/19 10/20/19 10/20/19 18:59 06:59 18:59 Intake Total 700 1011 Output Total 2270 430 Balance -1570 581 Weight 42 kg 39.5 kg Intake: IV 700 Intake, IV Titration 1011 Amount Mvi, Adult No.4 with Vit 1011 K 10 ml Trace (Conc-1Ml/ Dose) 1 ml In Amino Acid 4.25%-D10w+Lytes*E* 1,000 ml @ 55 mls/hr IV . [id number] [facility] Rx#:[id number] Output: Gastric Drainage 2100 200 Urine 230 Estimated Blood Loss 170 Other: Voiding Method Indwelling Catheter # Voids 1 - Labs CBC & Chem 7: 10/20/19 05:40 10/20/19 05:40 Labs: Abnormal Lab Results - Last 24 Hours (Table) 10/19/19 10/20/19 10/20/19 Range/Units 23:13 05:40 05:40 WBC 19.3 H (3.8-10.6) k/uL Hgb 9.9 L (11.4-16.0) gm/dL Hct 33.4 L (34.0-46.0) % MCHC 29.7 L (31.0-37.0) g/dL Neutrophils # 17.1 H (1.3-7.7) k/uL Lymphocytes # 0.3 L (1.0-4.8) k/uL Monocytes # 1.4 H (0-1.0) k/uL Sodium 132 L (137-145) mmol/L Chloride 97 L (98-107) mmol/L BUN 40 H (7-17) mg/dL Glucose 104 H (74-99) mg/dL POC Glucose (mg/dL) 150 H (75-99) mg/dL Calcium 7.9 L (8.4-10.2) mg/dL Total Protein 5.1 L (6.3-8.2) g/dL Albumin 2.5 L (3.5-5.0) g/dL Microbiology - Last 24 Hours (Table) 10/18/19 06:27 Blood Culture - Preliminary Blood No Growth after 48 hours
[2019-10-20] MEDS: MAGNESIUM SULFATE-D5W PMX 1 GM in DEXTROSE/WATER 1 100ML.BAG IVPB SCH ×2 (10:21→11:30)
--- NOTE | 2019-10-20 10:52 | P.PN ---
Subjective Progress Note Date: 10/19/19 10/19/2019 This is a pleasant 84-year-old female past medical history significant for colon cancer status post resection, hypertension, dyslipidemia and COPD on home oxygen. 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 We were asked to see in consultation for arrhythmia. Patient is seen and examined sitting up in bed in no acute distress. She has an NG tube in place secondary to bowel obstruction, she continues to be in sinus tachycardia with frequent PACs. She does not require anticoagulation at this time and is not taking anything orally. We will increase her IV Lopressor to 5 mg every 6 hours, hold for heart rate less than 90. Objective - Vital Signs Vital signs: Vital Signs Temp 98.5 F 10/20/19 08:00 Pulse 116 H 10/20/19 09:17 Resp 24 10/20/19 08:00 BP 124/73 10/20/19 08:00 Pulse Ox 98 10/20/19 08:00 Intake & Output 10/19/19 10/20/19 10/20/19 18:59 06:59 18:59 Intake Total 700 1011 Output Total 2270 430 Balance -1570 581 Weight 42 kg 39.5 kg Intake: IV 700 Intake, IV Titration 1011 Amount Mvi, Adult No.4 with Vit 1011 K 10 ml Trace (Conc-1Ml/ Dose) 1 ml In Amino Acid 4.25%-D10w+Lytes*E* 1,000 ml @ 55 mls/hr IV . [id number] [facility] Rx#:[id number] Output: Gastric Drainage 2100 200 Urine 230 Estimated Blood Loss 170 Other: Voiding Method Indwelling Catheter # Voids 1 - Exam PHYSICAL EXAMINATION: GENERAL: 84-year-old female in no acute distress at the time of my examination HEENT: Head is atraumatic, normocephalic. Pupils equal, round. Sclera anicteric. Conjunctiva are clear. Mucous membranes of the mouth are moist. Neck is supple. There is no elevated jugular venous pressure. No carotid bruit is heard. NG tube in place HEART EXAMINATION: Heart S1, S2 normal. No murmur or gallop heard. CHEST EXAMINATION: Lungs are clear to auscultation and precussion. No chest wall tenderness is noted on palpation or with deep breathing. ABDOMEN: Soft, nontender.No Bowel sounds are heard. No organomegaly noted. EXTREMITIES: 2+ peripheral pulses with no evidence of peripheral edema and no calf tenderness noted. NEUROLOGIC patient is awake, alert and oriented 3 . . - Labs CBC & Chem 7: 10/20/19 05:40 10/20/19 05:40 Labs: Abnormal Lab Results - Last 24 Hours (Table) 10/19/19 10/20/19 10/20/19 Range/Units 23:13 05:40 05:40 WBC 19.3 H (3.8-10.6) k/uL Hgb 9.9 L (11.4-16.0) gm/dL Hct 33.4 L (34.0-46.0) % MCHC 29.7 L (31.0-37.0) g/dL Neutrophils # 17.1 H (1.3-7.7) k/uL Lymphocytes # 0.3 L (1.0-4.8) k/uL Monocytes # 1.4 H (0-1.0) k/uL Sodium 132 L (137-145) mmol/L Chloride 97 L (98-107) mmol/L BUN 40 H (7-17) mg/dL Glucose 104 H (74-99) mg/dL POC Glucose (mg/dL) 150 H (75-99) mg/dL Calcium 7.9 L (8.4-10.2) mg/dL Total Protein 5.1 L (6.3-8.2) g/dL Albumin 2.5 L (3.5-5.0) g/dL Microbiology - Last 24 Hours (Table) 10/18/19 06:27 Blood Culture - Preliminary Blood No Growth after 48 hours Assessment and Plan Plan: ASSESSMENT AND PLAN #1 sinus tachycardia with frequent PACs #2 Small bowel obstruction, status post small bowel resection with lysis of adhesions #3 Hypertension #4 Dyslipidemia #5 COPD Plan We will increase the patient's dose of IV Lopressor to 5 mg every 6 hours, hold for heart rate less than 90.. DNP note has been reviewed, I agree with a documented findings and plan of care. Patient was seen and examined.
--- NOTE | 2019-10-20 10:57 | P.PN ---
Subjective Progress Note Date: 10/20/19 10/19/2019 This is a pleasant 84-year-old female past medical history significant for colon cancer status post resection, hypertension, dyslipidemia and COPD on home oxygen. 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 We were asked to see in consultation for arrhythmia. Patient is seen and examined sitting up in bed in no acute distress. She has an NG tube in place secondary to bowel obstruction, she continues to be in sinus tachycardia with frequent PACs. She does not require anticoagulation at this time and is not taking anything orally. We will increase her IV Lopressor to 5 mg every 6 hours, hold for heart rate less than 90. 10/20/2019 Patient was seen and examined this morning, continues to have NG tube in place. She underwent or small bowel obstruction yesterday, continues to be in a sinus tachycardia with frequent PACs. Objective - Vital Signs Vital signs: Vital Signs Temp 98.5 F 10/20/19 08:00 Pulse 116 H 10/20/19 09:17 Resp 24 10/20/19 08:00 BP 124/73 10/20/19 08:00 Pulse Ox 98 10/20/19 08:00 Intake & Output 10/19/19 10/20/19 10/20/19 18:59 06:59 18:59 Intake Total 700 1011 Output Total 2270 430 Balance -1570 581 Weight 42 kg 39.5 kg Intake: IV 700 Intake, IV Titration 1011 Amount Mvi, Adult No.4 with Vit 1011 K 10 ml Trace (Conc-1Ml/ Dose) 1 ml In Amino Acid 4.25%-D10w+Lytes*E* 1,000 ml @ 55 mls/hr IV . [id number] [facility] Rx#:[id number] Output: Gastric Drainage 2100 200 Urine 230 Estimated Blood Loss 170 Other: Voiding Method Indwelling Catheter # Voids 1 - Exam PHYSICAL EXAMINATION: GENERAL: 84-year-old female in no acute distress at the time of my examination HEENT: Head is atraumatic, normocephalic. Pupils equal, round. Sclera anicteric. Conjunctiva are clear. Mucous membranes of the mouth are moist. Neck is supple. There is no elevated jugular venous pressure. No carotid bruit is heard. NG tube in place HEART EXAMINATION: Heart S1, S2 normal. No murmur or gallop heard. CHEST EXAMINATION: Lungs are clear to auscultation and precussion. No chest wall tenderness is noted on palpation or with deep breathing. ABDOMEN: Soft, nontender.No Bowel sounds are heard. No organomegaly noted. EXTREMITIES: 2+ peripheral pulses with no evidence of peripheral edema and no calf tenderness noted. NEUROLOGIC patient is awake, alert and oriented 3 . . - Labs CBC & Chem 7: 10/20/19 05:40 10/20/19 05:40 Labs: Abnormal Lab Results - Last 24 Hours (Table) 10/19/19 10/20/19 10/20/19 Range/Units 23:13 05:40 05:40 WBC 19.3 H (3.8-10.6) k/uL Hgb 9.9 L (11.4-16.0) gm/dL Hct 33.4 L (34.0-46.0) % MCHC 29.7 L (31.0-37.0) g/dL Neutrophils # 17.1 H (1.3-7.7) k/uL Lymphocytes # 0.3 L (1.0-4.8) k/uL Monocytes # 1.4 H (0-1.0) k/uL Sodium 132 L (137-145) mmol/L Chloride 97 L (98-107) mmol/L BUN 40 H (7-17) mg/dL Glucose 104 H (74-99) mg/dL POC Glucose (mg/dL) 150 H (75-99) mg/dL Calcium 7.9 L (8.4-10.2) mg/dL Total Protein 5.1 L (6.3-8.2) g/dL Albumin 2.5 L (3.5-5.0) g/dL Microbiology - Last 24 Hours (Table) 10/18/19 06:27 Blood Culture - Preliminary Blood No Growth after 48 hours Assessment and Plan Plan: ASSESSMENT AND PLAN #1 sinus tachycardia with frequent PACs #2 Small bowel obstruction, status post small bowel resection with lysis of adhesions #3 Hypertension #4 Dyslipidemia #5 COPD Plan We will continue the patient's dose of IV Lopressor to 5 mg every 6 hours, hold for heart rate less than 90 if the patient's heart rate remains elevated, we will consider the addition of Cardizem. DNP note has been reviewed, I agree with a documented findings and plan of care. Patient was seen and examined.
--- NOTE | 2019-10-20 19:34 | P.PN ---
Progress Note - Text Progress Note Date: 10/20/19 Presenting complaint: Abdominal pain Interval history: 84-year-old patient of , transferred from outside facility with a computed tomography scan showing evidence of high-grade small bowel obstruction. Patient not eating for 3 days. NG tube was placed. On October 18 patient was taken to the operating room by Dr. Colon. Found to have small bowel obstruction secondary to internal hernia, lysis of adhesions and a small bowel resection small portion was done. Today-. Patient remains nothing by mouth. No bowel movement. No new issues. Review of systems: Was done for constitutional, cardiovascular, GI, pulmonary. relevant finding as above Active Medications Hydrocodone Bitart/Acetaminophen ([place] 5-325) 2 each PO Q6HR PRN PRN Reason: Moderate to Severe Pain Albuterol Sulfate (Ventolin Hfa Inhaler) 2 puff INHALATION RT-Q4H PRN PRN Reason: Shortness Of Breath Or Wheezin Last Admin: 10/20/19 11:29 Dose: 2 puff Documented by: Aspirin (Aspirin) 81 mg PO DAILY [facility] Last Admin: 10/20/19 09:19 Dose: Not Given Documented by: Atorvastatin Calcium (Lipitor) 10 mg PO HS [facility] Last Admin: 10/20/19 05:42 Dose: Not Given Documented by: Enoxaparin Sodium (Lovenox) 30 mg SQ DAILY [facility] Hydromorphone HCl (Dilaudid) 0.5 mg IVP Q3HR PRN PRN Reason: Moderate to Severe Pain Last Admin: 10/20/19 09:18 Dose: 0.5 mg Documented by: Fat Emulsion Intravenous 250 (ml/ IV Solution) 250 mls @ 21 mls/hr IV DAILY [facility] Last Admin: 10/20/19 10:10 Dose: 21 mls/hr Documented by: Parenteral Vitamin Supplement 10 ml/ Chromium/Copper/Manganese/Seleni/Zn 1 ml/Amino Ac/Electrol/Dextrose/Calcium 1,011 mls @ 55 mls/hr IV .[id number] [facility] Last Admin: 10/20/19 01:45 Dose: 55 mls/hr Documented by: Ampicillin Sodium/Sulbactam (Sodium 3 gm/ Sodium Chloride) 100 mls @ 200 mls/hr IVPB Q12H [facility] Last Admin: 10/20/19 17:57 Dose: 200 mls/hr Documented by: Metoprolol Tartrate (Lopressor) 5 mg IVP Q6HR [facility] Last Admin: 10/20/19 17:57 Dose: 5 mg Documented by: Morphine Sulfate (Morphine Sulfate (Inj)) 4 mg IVP Q4HR PRN PRN Reason: Pain Last Admin: 10/19/19 08:52 Dose: 4 mg Documented by: Naloxone HCl (Narcan) 0.2 mg IV Q2M PRN PRN Reason: Opioid Reversal Last Admin: 10/19/19 23:45 Dose: 0.2 mg Documented by: Ondansetron HCl (Zofran) 4 mg IVP Q6HR PRN PRN Reason: Nausea And Vomiting Last Admin: 10/19/19 08:52 Dose: 4 mg Documented by: Pantoprazole Sodium (Protonix) 40 mg IVP DAILY [facility] Last Admin: 10/20/19 09:17 Dose: 40 mg Documented by: On examination: VITAL SIGNS: 98.4, 109, 20, 149/66, 96% on 5 L GENERAL APPEARANCE:, laying in bed, awake tired. HEENT: Normal external appearance of nose and ear. Oral cavity dry, NG tube EYES: Pupils equal. Conjunctiva pale NECK: JVD not raised. Mass not palpable. RESPIRATORY: Respiratory effort normal. Decreased breath sounds. CARDIOVASCULAR: First and second sounds normal. No edema. ABDOMEN: Soft. Some tenderness, Liver and spleen not palpable.. No mass palpable. PSYCHIATRY: Alert and oriented x3. Mood and affect normal. INVESTIGATIONS, reviewed in the clinical context: White count 19.3 hemoglobin 9.9 potassium 4 creatinine 0.95 Previous testin-D echo-EF 55-60% Computed tomography scan of the abdomen-distal small bowel obstruction bilateral effusions with associated ascites right lower lobe bronchiectasis Assessment: -Acute distal small bowel obstruction.-Followed by lysis of adhesions and small portion of small bowel resection -possible aspiration pneumonia -COPD in an ex-smoker -Essential hypertension -Hyperlipidemia -Chronic osteoporosis -Chronic hypoxic respiratory failure on 2 L of oxygen at home -Severe protein calorie malnutrition Plan: Continue with IV Unasyn. TPN and lipids started. Other medication treatment plan to continue. And IV fluids.
--- NOTE | 2019-10-21 04:53 | PN ---
PROGRESS NOTE DATE OF SERVICE: 10/20/2019 REASON FOR FOLLOWUP: Small-bowel obstruction and possible aspiration pneumonia. INTERVAL HISTORY: The patient is currently afebrile. She is breathing comfortably. She denies having any chest pain. Did have some cough. No nausea, no vomiting. Abdominal pain off and on. Did not have any bowel movements. Still has NG in. PHYSICAL EXAMINATION: Blood pressure 141/86, pulse of 76, temperature of 98.4. She is 96% on 4 L nasal cannula. General description is an elderly female lying in bed in no distress. RESPIRATORY SYSTEM: Unlabored breathing, decreased breath sounds in the bases. No wheeze. HEART: S1, S2. Regular rate and rhythm. ABDOMEN: Soft, mildly tender. No guarding or rigidity. LABS: Hemoglobin is 9.9, white count of 19.3, BUN of 40, creatinine 0.95. Blood culture has been negative. DIAGNOSTIC IMPRESSION AND PLAN: Patient with small bowel obstruction in this patient who is status post exploratory laparotomy and lysis of adhesion and small bowel resection with no evidence of any perforation. The patient is currently covered with Unasyn. Did have significant jump in the white count that will be monitored closely. Continue supportive care. MMODL / IJN: [id number] /
[2019-10-21 06:30] LABS: ALT 12 U/L (4-34); AST 27 U/L (14-36); African American GFR (CKD) >90 (>60 ml/min/1.73 sqM); Albumin 2.8 g/dL (3.5-5.0); Alkaline Phosphatase 106 U/L (38-126); Anion Gap 7 mmol/L; Blood Urea Nitrogen 31 mg/dL (7-17); Calcium 8.5 mg/dL (8.4-10.2); Carbon Dioxide 32 mmol/L (22-30); Chloride 92 mmol/L (98-107); Glucose 146 mg/dL (74-99); Magnesium 1.9 mg/dL (1.6-2.3); Non-African American GFR(CKD) 83 (>60 ml/min/1.73 sqM); Phosphorus 2.3 mg/dL (2.5-4.5); Potassium 3.3 mmol/L (3.5-5.1); Sodium 131 mmol/L (137-145); Total Bilirubin 0.4 mg/dL (0.2-1.3); Total Protein 5.5 g/dL (6.3-8.2)
[2019-10-21] MEDS: METOPROLOL TARTRATE 5 MG/5 ML VIAL IVP SCH ×4 (06:59→23:33)
[2019-10-21] MEDS: AMPICILLIN-SULBACTAM 3 GM in SODIUM CHLORIDE 0.9% 100 ML IVPB SCH ×2 (07:00→17:42)
[2019-10-21] MEDS ORDERED: DILTIAZEM DRIP BOLUS FROM BAG 1 MG SOLN IV ONE (09:17)
[2019-10-21] MEDS ORDERED: niCARdipine 20 MG in SODIUM CHLORIDE 0.9% 192 ML IV ONE (09:30)
[2019-10-21] MEDS: PANTOPRAZOLE 40 MG/10 ML VIAL IVP SCH (09:49)
[2019-10-21] MEDS: POTASSIUM CHLORIDE 10 MEQ in WATER FOR INJECTION 1 100ML.BAG IVPB SCH ×6 (09:49→17:42)
[2019-10-21] MEDS: FAT EMULSION 20% 250 ML in EMPTY BAG 1 BAG IV SCH (09:49)
[2019-10-21] MEDS: ENOXAPARIN 30 MG/0.3 ML SYRINGE SQ SCH (09:50)
[2019-10-21] MEDS ORDERED: POTASSIUM CHLORIDE 10 MEQ in WATER FOR INJECTION 1 100ML.BAG IVPB SCH (10:00)
[2019-10-21] MEDS: DILTIAZEM 125 MG in SODIUM CHLORIDE 0.9% 100 ML IV SCH ×2 (10:24→21:07)
[2019-10-21] MEDS: ASPIRIN 81 MG PO SCH (11:09)
--- NOTE | 2019-10-21 11:40 | P.PN ---
Subjective Progress Note Date: 10/21/19 10/19/2019 This is a pleasant 84-year-old female past medical history significant for colon cancer status post resection, hypertension, dyslipidemia and COPD on home oxygen. She denies prior history of coronary artery disease or arrhythmia and does not follow in the office with a jointer operator. We were asked to see in consultation for arrhythmia. Patient is seen and examined sitting up in bed in no acute distress. She has an NG tube in place secondary to bowel obstruction, she continues to be in sinus tachycardia with frequent PACs. She does not require anticoagulation at this time and is not taking anything orally. We will increase her IV Lopressor to 5 mg every 6 hours, hold for heart rate less than 90. 10/20/2019 Patient was seen and examined this morning, continues to have NG tube in place. She underwent or small bowel obstruction yesterday, continues to be in a sinus tachycardia with frequent PACs. 10/21/2019 Patient seen and examined this morning, she is quite confused, continues to have her NG tube in place. Heart rate this morning in the 120 to 1:30 range. Teleme try was reviewed by Dr. Rahel Dillard, appears to be a sinus tachycardia with frequent PACs but cannot completely rule out possible atrial fibrillation. Patient at this time is getting Lovenox once daily, this was reviewed by Dr. Rahel Dillard as well. We will start the patient today on IV Cardizem drip. Patient's potassium today is 3.3, we will also replace this. Objective - Vital Signs Vital signs: Vital Signs Temp 97.7 F 10/21/19 08:00 Pulse 92 10/21/19 08:00 Resp 16 10/21/19 08:00 BP 147/72 10/21/19 08:00 Pulse Ox 95 10/21/19 08:00 Intake & Output 10/20/19 10/21/19 10/21/19 18:59 06:59 18:59 Intake Total 1260 1005.583 Output Total 400 1685 700 Balance 860 -679.417 -700 Weight 42 kg Intake: IV 1260 Fat Emulsion 20% 250 ml 250 In Empty Bag 1 bag @ 21 mls/hr IV DAILY [facility] Rx#: [id number] Magnesium Sulfate-D5w Pmx 200 1 gm In Dextrose/Water 1 100ml.bag @ 100 mls/hr IVPB Q1H [facility] Rx#: [id number] Mvi, Adult No.4 with Vit 660 K 10 ml Trace (Conc-1Ml/ Dose) 1 ml In Amino Acid 4.25%-D10w+Lytes*E* 1,000 ml @ 55 mls/hr IV . [id number] [facility] Rx#:[id number] Sodium Chloride 0.9% 1, 150 000 ml @ 75 mls/hr IV . [id number] [facility] Rx#:[id number] Intake, IV Titration 1005.583 Amount Mvi, Adult No.4 with Vit 1005.583 K 10 ml Trace (Conc-1Ml/ Dose) 1 ml In Amino Acid 4.25%-D10w+Lytes*E* 1,000 ml @ 55 mls/hr IV . [id number] [facility] Rx#:[id number] Output: Gastric Drainage 100 0 Urine 300 1685 700 Other: Voiding Method Indwelling Catheter Indwelling Catheter - Exam PHYSICAL EXAMINATION: GENERAL: 84-year-old female in no acute distress at the time of my examination HEENT: Head is atraumatic, normocephalic. Pupils equal, round. Sclera anicteric. Conjunctiva are clear. Mucous membranes of the mouth are moist. Neck is supple. There is no elevated jugular venous pressure. No carotid bruit is heard. NG tube in place HEART EXAMINATION: Heart S1, S2 normal. No murmur or gallop heard. CHEST EXAMINATION: Lungs are clear to auscultation and precussion. No chest wall tenderness is noted on palpation or with deep breathing. ABDOMEN: Soft, nontender.No Bowel sounds are heard. No organomegaly noted. EXTREMITIES: 2+ peripheral pulses with no evidence of peripheral edema and no calf tenderness noted. NEUROLOGIC patient is awake, confused. - Labs CBC & Chem 7: 10/20/19 05:40 10/21/19 05:52 Labs: Abnormal Lab Results - Last 24 Hours (Table) 10/21/19 Range/Units 05:52 Sodium 131 L (137-145) mmol/L Potassium 3.3 L (3.5-5.1) mmol/L Chloride 92 L (98-107) mmol/L Carbon Dioxide 32 H (22-30) mmol/L BUN 31 H (7-17) mg/dL Glucose 146 H (74-99) mg/dL Phosphorus 2.3 L (2.5-4.5) mg/dL Total Protein 5.5 L (6.3-8.2) g/dL Albumin 2.8 L (3.5-5.0) g/dL Microbiology - Last 24 Hours (Table) 10/18/19 06:27 Blood Culture - Preliminary Blood No Growth after 72 hours Assessment and Plan Plan: ASSESSMENT AND PLAN #1 sinus tachycardia with frequent PACs #2 Small bowel obstruction, status post small bowel resection with lysis of adhesions #3 Hypertension #4 Dyslipidemia #5 COPD Plan We will add a Cardizem drip to the patient's medication regime, replace the potassium, continue the IV Lopressor, change the parameters to a heart rate greater than 110. DNP note has been reviewed, I agree with a documented findings and plan of care. Patient was seen and examined.
--- NOTE | 2019-10-21 12:43 | P.PN ---
Subjective Patient was seen and examined sitting up in bed. She is postoperative day #2 exploratory laparotomy, lysis of adhesion and small bowel resection. She is frequently attempting to pull out her NG tube. She continues to have mild amount of abdominal discomfort. Laboratory data reviewed, sodium 131, potassium 3.3, creatinine 0.65, albumin 2.8. GENERAL: No acute distress. Blood pressure 165/74 heart rate 120 afebrile and maintaining oxygen saturation on nasal cannula. HEENT: Head is atraumatic, normocephalic. Pupils are equal, round. Sclerae an icteric. Conjunctivae are clear. Mucous membranes of the mouth are moist. Neck is supple. NG tube in place. ABDOMEN: Soft, nontender. NEUROLOGIC: Patient is awake, alert and oriented x3. ASSESSMENT Small bowel obstruction status post exploratory laparotomy, lysis of adhesions and small bowel resection. Postoperative day #2 PLAN Discontinue NG tube. CBC tomorrow morning. Continue TPN and nothing by mouth. Lovenox for DVT prophylaxis. Morphine and Zofran for pain and anti-nausea. The above impression and plan of care have been discussed and directed by the signing physician. Marilyn Chang, nurse practitioner, acting as scribe for signing physician. Objective - Vital Signs Vital signs: Vital Signs Temp 97.7 F 10/21/19 08:00 Pulse 120 H 10/21/19 12:35 Resp 16 10/21/19 12:35 BP 165/74 10/21/19 12:35 Pulse Ox 91 L 10/21/19 12:35 Intake & Output 10/20/19 10/21/19 10/21/19 18:59 06:59 18:59 Intake Total 1260 1005.583 Output Total 400 1685 700 Balance 860 -679.417 -700 Weight 42 kg Intake: IV 1260 Fat Emulsion 20% 250 ml 250 In Empty Bag 1 bag @ 21 mls/hr IV DAILY [facility] Rx#: [id number] Magnesium Sulfate-D5w Pmx 200 1 gm In Dextrose/Water 1 100ml.bag @ 100 mls/hr IVPB Q1H [facility] Rx#: [id number] Mvi, Adult No.4 with Vit 660 K 10 ml Trace (Conc-1Ml/ Dose) 1 ml In Amino Acid 4.25%-D10w+Lytes*E* 1,000 ml @ 55 mls/hr IV . [id number] [facility] Rx#:[id number] Sodium Chloride 0.9% 1, 150 000 ml @ 75 mls/hr IV . [id number] [facility] Rx#:[id number] Intake, IV Titration 1005.583 Amount Mvi, Adult No.4 with Vit 1005.583 K 10 ml Trace (Conc-1Ml/ Dose) 1 ml In Amino Acid 4.25%-D10w+Lytes*E* 1,000 ml @ 55 mls/hr IV . [id number] [facility] Rx#:[id number] Output: Gastric Drainage 100 0 Urine 300 1685 700 Other: Voiding Method Indwelling Catheter Indwelling Catheter - Labs CBC & Chem 7: 10/20/19 05:40 10/21/19 05:52 Labs: Abnormal Lab Results - Last 24 Hours (Table) 10/21/19 Range/Units 05:52 Sodium 131 L (137-145) mmol/L Potassium 3.3 L (3.5-5.1) mmol/L Chloride 92 L (98-107) mmol/L Carbon Dioxide 32 H (22-30) mmol/L BUN 31 H (7-17) mg/dL Glucose 146 H (74-99) mg/dL Phosphorus 2.3 L (2.5-4.5) mg/dL Total Protein 5.5 L (6.3-8.2) g/dL Albumin 2.8 L (3.5-5.0) g/dL Microbiology - Last 24 Hours (Table) 10/18/19 06:27 Blood Culture - Preliminary Blood No Growth after 72 hours
[2019-10-21] MEDS: MVI, ADULT NO.4 WITH VIT K 10 ML, TRACE (CONC-1ML/DOSE) 1 ML in AMINO ACID 4.25%-D10W+L... IV SCH ×6 (14:37→18:17)
[2019-10-21] MEDS: ATORVASTATIN 10 MG TAB PO SCH (20:47)
--- NOTE | 2019-10-21 21:38 | P.PN ---
Progress Note - Text Progress Note Date: 10/21/19 Presenting complaint: Abdominal pain Interval history: 84-year-old patient of , transferred from outside facility with a computed tomography scan showing evidence of high-grade small bowel obstruction. Patient not eating for 3 days. NG tube was placed. On October 18 patient was taken to the operating room by Dr. Colon. Found to have small bowel obstruction secondary to internal hernia, lysis of adhesions and a small bowel resection small portion was done. Today-. NG tube was discontinued. No flatus. Minimal abdominal pain. Remains nothing by mouth. Review of systems: Was done for constitutional, cardiovascular, GI, pulmonary. relevant finding as above Active Medications Hydrocodone Bitart/Acetaminophen ([place] 5-325) 2 each PO Q6HR PRN PRN Reason: Moderate to Severe Pain Albuterol Sulfate (Ventolin Hfa Inhaler) 2 puff INHALATION RT-Q4H PRN PRN Reason: Shortness Of Breath Or Wheezin Last Admin: 10/20/19 11:29 Dose: 2 puff Documented by: Aspirin (Aspirin) 81 mg PO DAILY [facility] Last Admin: 10/21/19 11:09 Dose: Not Given Documented by: Atorvastatin Calcium (Lipitor) 10 mg PO HS [facility] Last Admin: 10/21/19 20:47 Dose: 10 mg Documented by: Enoxaparin Sodium (Lovenox) 30 mg SQ DAILY [facility] Last Admin: 10/21/19 09:50 Dose: 30 mg Documented by: Hydromorphone HCl (Dilaudid) 0.5 mg IVP Q3HR PRN PRN Reason: Moderate to Severe Pain Last Admin: 10/20/19 22:49 Dose: 0.5 mg Documented by: Fat Emulsion Intravenous 250 (ml/ IV Solution) 250 mls @ 21 mls/hr IV DAILY [facility] Last Admin: 10/21/19 09:49 Dose: 21 mls/hr Documented by: Parenteral Vitamin Supplement 10 ml/ Chromium/Copper/Manganese/Seleni/Zn 1 ml/Amino Ac/Electrol/Dextrose/Calcium 1,011 mls @ 55 mls/hr IV .[id number] [facility] Last Admin: 10/21/19 18:17 Dose: 55 mls/hr Documented by: Ampicillin Sodium/Sulbactam (Sodium 3 gm/ Sodium Chloride) 100 mls @ 200 mls/hr IVPB Q12H [facility] Last Admin: 10/21/19 17:42 Dose: 200 mls/hr Documented by: Diltiazem HCl 125 mg/ Sodium (Chloride) 125 mls @ 10 mls/hr IV .[id number] [facility] Last Admin: 10/21/19 21:07 Dose: 10 mg/hr, 10 mls/hr Documented by: Metoprolol Tartrate (Lopressor) 5 mg IVP Q6HR [facility] Last Admin: 10/21/19 17:49 Dose: Not Given Documented by: Morphine Sulfate (Morphine Sulfate (Inj)) 4 mg IVP Q4HR PRN PRN Reason: Pain Last Admin: 10/19/19 08:52 Dose: 4 mg Documented by: Naloxone HCl (Narcan) 0.2 mg IV Q2M PRN PRN Reason: Opioid Reversal Last Admin: 10/19/19 23:45 Dose: 0.2 mg Documented by: Ondansetron HCl (Zofran) 4 mg IVP Q6HR PRN PRN Reason: Nausea And Vomiting Last Admin: 10/19/19 08:52 Dose: 4 mg Documented by: Pantoprazole Sodium (Protonix) 40 mg IVP DAILY [facility] Last Admin: 10/21/19 09:49 Dose: 40 mg Documented by: On examination: VITAL SIGNS: 97.7, 120, 16, 147/72, 95 % on 3 L GENERAL APPEARANCE:, laying in bed, awake tired. HEENT: Normal external appearance of nose and ear. Oral cavity dry, NG tube EYES: Pupils equal. Conjunctiva pale NECK: JVD not raised. Mass not palpable. RESPIRATORY: Respiratory effort normal. Decreased breath sounds. CARDIOVASCULAR: First and second sounds normal. No edema. ABDOMEN: Soft. Binder in place, some tenderness PSYCHIATRY: Alert and oriented x3. Mood and affect normal. INVESTIGATIONS, reviewed in the clinical context: Potassium 3.3 creatinine 0.65 Previous testin-D echo-EF 55-60% Computed tomography scan of the abdomen-distal small bowel obstruction bilateral effusions with associated ascites right lower lobe bronchiectasis Assessment: -Acute distal small bowel obstruction.-Followed by lysis of adhesions and small portion of small bowel resection -possible aspiration pneumonia -COPD in an ex-smoker -Essential hypertension -Hyperlipidemia -Chronic osteoporosis -Chronic hypoxic respiratory failure on 2 L of oxygen at home -Severe protein calorie malnutrition Plan: Continue with IV Unasyn. Nothing by mouth. TPN and lipids to continue.
--- NOTE | 2019-10-21 23:09 | PN ---
PROGRESS NOTE DATE OF SERVICE: 10/21/2019 REASON FOR FOLLOWUP: Possible aspiration pneumonia. INTERVAL HISTORY: The patient is currently afebrile. The patient's NG has been discontinued. She is feeling slightly better. Still has some congested cough with occasional sputum. Sputum culture was requested but not obtained. No nausea, no vomiting. Did not have any bowel movement. PHYSICAL EXAMINATION: Blood pressure 151/74 with a pulse of 107, temperature 98.3. She is 95% on 3 L nasal cannula. General description is an elderly female lying in bed in no distress. RESPIRATORY SYSTEM: Unlabored breathing with decreased breath sounds at the base. No wheeze. HEART: S1, S2. Regular rate and rhythm. ABDOMEN: Soft. No tenderness. LABS: BUN of 31, creatinine 0.65. DIAGNOSTIC IMPRESSION AND PLAN: Patient admitted to hospital with intractable vomiting in this patient who did have a small bowel obstruction, failed medical therapy, status post laparotomy, resection and anastomosis. There is no clear indication of any perforation. There is also concern for possible aspiration pneumonitis. The patient is covered with Unasyn; to continue. Try to obtain a sputum sample and monitor her clinical course closely. MMODL / IJN: [id number] /
[2019-10-22] MEDS: METOPROLOL TARTRATE 5 MG/5 ML VIAL IVP SCH ×2 (05:53→10:28)
[2019-10-22] MEDS: AMPICILLIN-SULBACTAM 3 GM in SODIUM CHLORIDE 0.9% 100 ML IVPB SCH ×4 (05:54→23:57)
[2019-10-22 07:09] LABS: Basophils % (A) 0 %; Eosinophils # (A) 0.1 k/uL (0-0.7); Eosinophils % (A) 0 %; HCT 30.6 % (34.0-46.0); HGB 9.5 gm/dL (11.4-16.0); Hypochromasia Slight; Lymphocytes # (A) 1.3 k/uL (1.0-4.8); Lymphocytes % (A) 10 %; MCV 80.7 fL (80.0-100.0); Mean Platelet Volume 7.1; Monocytes # (A) 1.2 k/uL (0-1.0); Monocytes % (A) 9 %; Neutrophils # (A) 9.8 k/uL (1.3-7.7); Neutrophils % (A) 77 %; Platelet Count 453 k/uL (150-450); RBC 3.79 m/uL (3.80-5.40); RDW 14.3 % (11.5-15.5); WBC 12.8 k/uL (3.8-10.6)
[2019-10-22 07:13] LABS: ALT 11 U/L (4-34); AST 20 U/L (14-36); African American GFR (CKD) >90 (>60 ml/min/1.73 sqM); Albumin 2.5 g/dL (3.5-5.0); Alkaline Phosphatase 81 U/L (38-126); Anion Gap 8 mmol/L; Blood Urea Nitrogen 22 mg/dL (7-17); Calcium 8.2 mg/dL (8.4-10.2); Carbon Dioxide 31 mmol/L (22-30); Chloride 91 mmol/L (98-107); Glucose 115 mg/dL (74-99); Magnesium 1.5 mg/dL (1.6-2.3); Non-African American GFR(CKD) 87 (>60 ml/min/1.73 sqM); Phosphorus 2.4 mg/dL (2.5-4.5); Potassium 3.2 mmol/L (3.5-5.1); Sodium 130 mmol/L (137-145); Total Bilirubin 0.3 mg/dL (0.2-1.3); Total Protein 5.1 g/dL (6.3-8.2)
[2019-10-22] MEDS ORDERED: Potassium Replacement Protocol 1 EACH MISC MISCELLANE PRN (08:04)
[2019-10-22] MEDS ORDERED: Magnesium Replacement Protocol 1 EACH MISC MISCELLANE PRN (08:06)
[2019-10-22] MEDS: ASPIRIN 81 MG PO SCH (08:11)
[2019-10-22] MEDS: ALBUTEROL HFA INHALER INHALATION PRN ×4 (08:29→19:24)
[2019-10-22 08:51] LABS: Glucose,Whole Blood 120 mg/dL (75-99)
[2019-10-22] MEDS ORDERED: DILTIAZEM 125 MG in SODIUM CHLORIDE 0.9% 100 ML IV SCH (09:15)
[2019-10-22] MEDS: FAT EMULSION 20% 250 ML in EMPTY BAG 1 BAG IV SCH (09:41)
[2019-10-22] MEDS: POTASSIUM CHLORIDE 10 MEQ in WATER FOR INJECTION 1 100ML.BAG IVPB SCH ×4 (09:42→14:25)
[2019-10-22] MEDS: MAGNESIUM SULFATE-D5W PMX 1 GM in DEXTROSE/WATER 1 100ML.BAG IVPB SCH ×2 (09:43→11:04)
--- NOTE | 2019-10-22 10:07 | P.PN ---
Subjective Patient was seen and examined sitting up in bed. She is postoperative day #3 exploratory laparotomy, lysis of adhesion and small bowel resection. NG tube removed yesterday. She is seen and examined laying flat in bed in no acute distress. She states her stomach is "gurgling" but no passing gas or bowel movement. No nausea or vomiting. Laboratory data reviewed, WBC 12.8, hgn 9.5, plt 453, sodium 130, potassium 3.2, creatinine 0.55, magnesium 1.5, albumin 2.5. GENERAL: No acute distress. Blood pressure 148/70 heart rate 91 afebrile and maintaining oxygen saturation on nasal cannula. HEENT: Head is atraumatic, normocephalic. Pupils are equal, round. Sclerae anicteric. Conjunctivae are clear. Mucous membranes of the mouth are moist. Neck is supple. NG tube in place. ABDOMEN: Soft, nontender. NEUROLOGIC: Patient is awake, alert and oriented x3. ASSESSMENT Small bowel obstruction status post exploratory laparotomy, lysis of adhesions and small bowel resection. Postoperative day #3 Hypokalemia Hyponatremia Hypomagnesemia PLAN Clear liquid diet today, continue to assess for increasing abdominal pain or nausea/vomiting. Electrolytes are being replaced per primary care team. Lovenox for DVT prophylaxis. Morphine and Zofran for pain and anti-nausea. The above impression and plan of care have been discussed and directed by the signing physician. Marilyn Chang, nurse practitioner, acting as scribe for signing physician. Objective - Vital Signs Vital signs: Vital Signs Temp 98.1 F 10/22/19 03:33 Pulse 91 10/22/19 03:33 Resp 16 10/22/19 03:33 BP 148/70 10/22/19 03:33 Pulse Ox 93 L 10/22/19 03:33 Intake & Output 10/21/19 10/22/19 10/22/19 18:59 06:59 18:59 Intake Total 2380 107.167 Output Total 700 2385 Balance 1680 -2277.833 Weight 42 kg 40 kg Intake: IV 629 Fat Emulsion 20% 250 ml 189 In Empty Bag 1 bag @ 21 mls/hr IV DAILY [facility] Rx#: [id number] M[facility], Adult No.4 with Vit 440 K 10 ml Trace (Conc-1Ml/ Dose) 1 ml In Amino Acid 4.25%-D10w+Lytes*E* 1,000 ml @ 55 mls/hr IV . [id number] [facility] Rx#:[id number] Intake, IV Titration 1751 107.167 Amount Ampicillin-Sulbactam 3 gm 100 In Sodium Chloride 0.9% 100 ml @ 200 mls/hr IVPB Q12H [facility] Rx#:[id number] Diltiazem 125 mg In 40 107.167 Sodium Chloride 0.9% 100 ml @ 10 MG/HR 10 mls/hr IV .[id number] [facility] Rx#: [id number] Mvi, Adult No.4 with Vit 1011 K 10 ml Trace (Conc-1Ml/ Dose) 1 ml In Amino Acid 4.25%-D10w+Lytes*E* 1,000 ml @ 55 mls/hr IV . [id number] [facility] Rx#:[id number] Potassium Chloride 10 meq 600 In Water For Injection 1 100ml.bag @ 100 mls/hr IVPB Q1HR [facility] Rx#: [id number] Output: Urine 700 2385 Other: Voiding Method Indwelling Catheter Indwelling Catheter - Labs CBC & Chem 7: 10/22/19 06:41 10/22/19 06:41 Labs: Abnormal Lab Results - Last 24 Hours (Table) 10/22/19 10/22/19 10/22/19 Range/Units 06:41 06:41 08:38 WBC 12.8 H (3.8-10.6) k/uL RBC 3.79 L (3.80-5.40) m/uL Hgb 9.5 L (11.4-16.0) gm/dL Hct 30.6 L (34.0-46.0) % Plt Count 453 H (150-450) k/uL Neutrophils # 9.8 H (1.3-7.7) k/uL Monocytes # 1.2 H (0-1.0) k/uL Sodium 130 L (137-145) mmol/L Potassium 3.2 L (3.5-5.1) mmol/L Chloride 91 L (98-107) mmol/L Carbon Dioxide 31 H (22-30) mmol/L BUN 22 H (7-17) mg/dL Glucose 115 H (74-99) mg/dL POC Glucose (mg/dL) 120 H (75-99) mg/dL Calcium 8.2 L (8.4-10.2) mg/dL Phosphorus 2.4 L (2.5-4.5) mg/dL Magnesium 1.5 L (1.6-2.3) mg/dL Total Protein 5.1 L (6.3-8.2) g/dL Albumin 2.5 L (3.5-5.0) g/dL Microbiology - Last 24 Hours (Table) 10/18/19 06:27 Blood Culture - Preliminary Blood No Growth after 96 hours
--- NOTE | 2019-10-22 10:20 | P.PN ---
Subjective Progress Note Date: 10/22/19 10/19/2019 This is a pleasant 84-year-old female past medical history significant for colon cancer status post resection, hypertension, dyslipidemia and COPD on home oxygen. She denies prior history of coronary artery disease or arrhythmia and does not follow in the office with a jackaroo. We were asked to see in consultation for arrhythmia. Patient is seen and examined sitting up in bed in no acute distress. She has an NG tube in place secondary to bowel obstruction, she continues to be in sinus tachycardia with frequent PACs. She does not require anticoagulation at this time and is not taking anything orally. We will increase her IV Lopressor to 5 mg every 6 hours, hold for heart rate less than 90. 10/20/2019 Patient was seen and examined this morning, continues to have NG tube in place. She underwent or small bowel obstruction yesterday, continues to be in a sinus tachycardia with frequent PACs. 10/21/2019 Patient seen and examined this morning, she is quite confused, continues to have her NG tube in place. Heart rate this morning in the 120 to 1:30 range. Teleme try was reviewed by Dr. Rahel Dillard, appears to be a sinus tachycardia with frequent PACs but cannot completely rule out possible atrial fibrillation. Patient at this time is getting Lovenox once daily, this was reviewed by Dr. Rahel Dillard as well. We will start the patient today on IV Cardizem drip. Patient's potassium today is 3.3, we will also replace this. 10/22/2019 Patient was seen and examined this morning, she appears a little more alert today. Heart rate is in the 90s this morning. At times her heart rate does go up into the 1 teens, she still is not taking any oral medication although her NG tube is removed. We will start her on a Cardizem drip. Objective - Vital Signs Vital signs: Vital Signs Temp 98.1 F 10/22/19 03:33 Pulse 91 10/22/19 03:33 Resp 16 10/22/19 03:33 BP 148/70 10/22/19 03:33 Pulse Ox 93 L 10/22/19 03:33 Intake & Output 10/21/19 10/22/19 10/22/19 18:59 06:59 18:59 Intake Total 2380 107.167 Output Total 700 2385 Balance 1680 -2277.83 Weight 42 kg 40 kg Intake: IV 629 Fat Emulsion 20% 250 ml 189 In Empty Bag 1 bag @ 21 mls/hr IV DAILY [facility] Rx#: [id number] [facility], Adult No.4 with Vit 440 K 10 ml Trace (Conc-1Ml/ Dose) 1 ml In Amino Acid 4.25%-D10w+Lytes*E* 1,000 ml @ 55 mls/hr IV . [id number] [facility] Rx#:[id number] Intake, IV Titration 1751 107.167 Amount Ampicillin-Sulbactam 3 gm 100 In Sodium Chloride 0.9% 100 ml @ 200 mls/hr IVPB Q12H [facility] Rx#:[id number] Diltiazem 125 mg In 40 107.167 Sodium Chloride 0.9% 100 ml @ 10 MG/HR 10 mls/hr IV .[id number] [facility] Rx#: [id number] [facility], Adult No.4 with Vit 1011 K 10 ml Trace (Conc-1Ml/ Dose) 1 ml In Amino Acid 4.25%-D10w+Lytes*E* 1,000 ml @ 55 mls/hr IV . [id number] [facility] Rx#:[id number] Potassium Chloride 10 meq 600 In Water For Injection 1 100ml.bag @ 100 mls/hr IVPB Q1HR [facility] Rx#: [id number] Output: Urine 700 2385 Other: Voiding Method Indwelling Catheter Indwelling Catheter - Exam PHYSICAL EXAMINATION: GENERAL: 84-year-old female in no acute distress at the time of my examination HEENT: Head is atraumatic, normocephalic. Pupils equal, round. Sclera anicteric. Conjunctiva are clear. Mucous membranes of the mouth are moist. Neck is supple. There is no elevated jugular venous pressure. No carotid bruit is heard. HEART EXAMINATION: Heart S1, S2 normal. No murmur or gallop heard. CHEST EXAMINATION: Lungs are clear to auscultation and precussion. No chest wall tenderness is noted on palpation or with deep breathing. ABDOMEN: Soft, nontender.No Bowel sounds are heard. No organomegaly noted. EXTREMITIES: 2+ peripheral pulses with no evidence of peripheral edema and no ca lf tenderness noted. NEUROLOGIC patient is awake, confused. - Labs CBC & Chem 7: 10/22/19 06:41 04/09/20 06:41 Labs: Abnormal Lab Results - Last 24 Hours (Table) 10/22/19 10/22/19 10/22/19 Range/Units 06:41 06:41 08:38 WBC 12.8 H (3.8-10.6) k/uL RBC 3.79 L (3.80-5.40) m/uL Hgb 9.5 L (11.4-16.0) gm/dL Hct 30.6 L (34.0-46.0) % Plt Count 453 H (150-450) k/uL Neutrophils # 9.8 H (1.3-7.7) k/uL Monocytes # 1.2 H (0-1.0) k/uL Sodium 130 L (137-145) mmol/L Potassium 3.2 L (3.5-5.1) mmol/L Chloride 91 L (98-107) mmol/L Carbon Dioxide 31 H (22-30) mmol/L BUN 22 H (7-17) mg/dL Glucose 115 H (74-99) mg/dL POC Glucose (mg/dL) 120 H (75-99) mg/dL Calcium 8.2 L (8.4-10.2) mg/dL Phosphorus 2.4 L (2.5-4.5) mg/dL Magnesium 1.5 L (1.6-2.3) mg/dL Total Protein 5.1 L (6.3-8.2) g/dL Albumin 2.5 L (3.5-5.0) g/dL Microbiology - Last 24 Hours (Table) 10/18/19 06:27 Blood Culture - Preliminary Blood No Growth after 96 hours Assessment and Plan Plan: ASSESSMENT AND PLAN #1 sinus tachycardia with frequent PACs #2 Small bowel obstruction, status post small bowel resection with lysis of adhesions #3 Hypertension #4 Dyslipidemia #5 COPD Plan We will add a Cardizem drip to the patient's medication regime. Once the patient is able to take oral medications we will change her over to oral. DNP note has been reviewed, I agree with a documented findings and plan of care. Patient was seen and examined.
[2019-10-22] MEDS: PANTOPRAZOLE 40 MG/10 ML VIAL IVP SCH (10:29)
[2019-10-22] MEDS: ENOXAPARIN 30 MG/0.3 ML SYRINGE SQ SCH (10:29)
[2019-10-22] MEDS: METOPROLOL TARTRATE 50 MG TAB PO SCH ×2 (11:03→20:46)
[2019-10-22] MEDS: VERAPAMIL 40 MG TAB PO SCH ×3 (11:03→20:46)
[2019-10-22] MEDS: MVI, ADULT NO.4 WITH VIT K 10 ML, TRACE (CONC-1ML/DOSE) 1 ML in AMINO ACID 4.25%-D10W+L... IV SCH ×3 (11:41)
[2019-10-22] MEDS ORDERED: SODIUM PHOSPHATE 10 MMOL in SODIUM CHLORIDE 0.9% 250 ML IVPB ONE (12:00)
[2019-10-22 12:08] LABS: Glucose,Whole Blood 125 mg/dL (75-99)
[2019-10-22 17:06] LABS: Glucose,Whole Blood 108 mg/dL (75-99)
--- NOTE | 2019-10-22 19:24 | P.PN ---
Progress Note - Text Progress Note Date: 10/22/19 Presenting complaint: Abdominal pain Interval history: 84-year-old patient of , transferred from outside facility with a computed tomography scan showing evidence of high-grade small bowel obstruction. Patient not eating for 3 days. NG tube was placed. On October 18 patient was taken to the operating room by Dr. Colon. Found to have small bowel obstruction secondary to internal hernia, lysis of adhesions and a small bowel resection small portion was done. NG tube was placed. Discontinued on October 20 Today-. Had been nothing by mouth this morning. Did switch to clear liquids. Rather cheerful. Sitting upon a chair. Slight pain. No flatus. Review of systems: Was done for constitutional, cardiovascular, GI, pulmonary. relevant finding as above Active Medications Hydrocodone Bitart/Acetaminophen (Henri[place] 5-325) 2 each PO Q6HR PRN PRN Reason: Moderate to Severe Pain Albuterol Sulfate (Ventolin Hfa Inhaler) 2 puff INHALATION RT-Q4H PRN PRN Reason: Shortness Of Breath Or Wheezin Last Admin: 10/22/19 15:47 Dose: 2 puff Documented by: Aspirin (Aspirin) 81 mg PO DAILY [facility] Last Admin: 10/22/19 08:11 Dose: Not Given Documented by: Atorvastatin Calcium (Lipitor) 10 mg PO HS [facility] Last Admin: 10/21/19 20:47 Dose: 10 mg Documented by: Enoxaparin Sodium (Lovenox) 40 mg SQ DAILY [facility] Hydromorphone HCl (Dilaudid) 0.5 mg IVP Q3HR PRN PRN Reason: Moderate to Severe Pain Last Admin: 10/20/19 22:49 Dose: 0.5 mg Documented by: Fat Emulsion Intravenous 250 (ml/ IV Solution) 250 mls @ 21 mls/hr IV DAILY [facility] Last Admin: 10/22/19 09:41 Dose: 21 mls/hr Documented by: Parenteral Vitamin Supplement 10 ml/ Chromium/Copper/Manganese/Seleni/Zn 1 ml/Amino Ac/Electrol/Dextrose/Calcium 1,011 mls @ 55 mls/hr IV .[id number] [facility] Last Admin: 10/22/19 11:41 Dose: 55 mls/hr Documented by: Ampicillin Sodium/Sulbactam (Sodium 3 gm/ Sodium Chloride) 100 mls @ 200 mls/hr IVPB Q6H [facility] Last Admin: 10/22/19 19:13 Dose: 200 mls/hr Documented by: Metoprolol Tartrate (Lopressor) 50 mg PO BID [facility] Last Admin: 10/22/19 11:03 Dose: 50 mg Documented by: Miscellaneous Information (Potassium Per Protocol) 1 each MISCELLANE DAILY PRN; Protocol PRN Reason: Per Protocol Miscellaneous Information (Magnesium Per Protocol) 1 each MISCELLANE DAILY PRN; Protocol PRN Reason: Per Protocol Morphine Sulfate (Morphine Sulfate (Inj)) 4 mg IVP Q4HR PRN PRN Reason: Pain Last Admin: 10/19/19 08:52 Dose: 4 mg Documented by: Naloxone HCl (Narcan) 0.2 mg IV Q2M PRN PRN Reason: Opioid Reversal Last Admin: 10/19/19 23:45 Dose: 0.2 mg Documented by: Ondansetron HCl (Zofran) 4 mg IVP Q6HR PRN PRN Reason: Nausea And Vomiting Last Admin: 10/19/19 08:52 Dose: 4 mg Documented by: Pantoprazole Sodium (Protonix) 40 mg IVP DAILY [facility] Last Admin: 10/22/19 10:29 Dose: Not Given Documented by: Verapamil HCl (Isoptin) 40 mg PO TID [facility] Last Admin: 10/22/19 17:01 Dose: 40 mg Documented by: On examination: VITAL SIGNS: 97.4, 88, 16, 126/60, 97% on 3 L GENERAL APPEARANCE:, Sitting up in a chair, more comfortable HEENT: Normal external appearance of nose and ear. NG tube discontinued EYES: Pupils equal. Conjunctiva pale NECK: JVD not raised. Mass not palpable. RESPIRATORY: Respiratory effort normal. Decreased breath sounds. CARDIOVASCULAR: First and second sounds normal. No edema. ABDOMEN: Soft. Binder in place, some tenderness, bowel sounds present PSYCHIATRY: Answering questions INVESTIGATIONS, reviewed in the clinical context: White count 12.8 hemoglobin 9.5 potassium 3.2 creatinine 0.55 Previous testin-D echo-EF 55-60% Computed tomography scan of the abdomen-distal small bowel obstruction bilateral effusions with associated ascites right lower lobe bronchiectasis Assessment: -Acute distal small bowel obstruction.-Followed by lysis of adhesions and small portion of small bowel resection -possible aspiration pneumonia -COPD in an ex-smoker -Essential hypertension -Hyperlipidemia -Chronic osteoporosis -Chronic hypoxic respiratory failure on 2 L of oxygen at home -Severe protein calorie malnutrition Plan: Continue with IV Unasyn. Advance to clear liquids. TPN and lipids to continue. Patient appears comfortable comfortable
[2019-10-22 20:15] LABS: Potassium 4.5 mmol/L (3.5-5.1)
[2019-10-22] MEDS: ATORVASTATIN 10 MG TAB PO SCH (20:46)
--- NOTE | 2019-10-22 22:54 | PN ---
PROGRESS NOTE DATE OF SERVICE: 10/22/2019 REASON FOR FOLLOWUP: Aspiration pneumonia. INTERVAL HISTORY: The patient is currently afebrile. The patient is breathing comfortably. Denies having any chest pain. Occasional cough. Abdominal pain has improved. No vomiting or diarrhea. PHYSICAL EXAMINATION: Blood pressure 133/67, pulse of 94, temperature 98. She is 96% on 2 L nasal cannula. General description is an elderly female up in the chair in no distress. RESPIRATORY SYSTEM: Unlabored breathing with decreased breath sounds at the base. No wheeze. HEART: S1, S2. Regular rate and rhythm. ABDOMEN: Soft. No tenderness. LABS: Hemoglobin 9.5, white count 12.8, BUN of 22, creatinine 0.55. DIAGNOSTIC IMPRESSION AND PLAN: Patient admitted to hospital with small-bowel obstruction with concern for aspiration pneumonitis, status post laparotomy and release of the small-bowel obstruction. Patient is currently covered with Unasyn. White count is down. Will keep the patient on IV antibiotics, switching to oral antibiotic on discharge. Continue with supportive care. MMODL / IJN: [id number] /
[2019-10-23 00:15] LABS: Glucose,Whole Blood 112 mg/dL (75-99)
[2019-10-23] MEDS: MVI, ADULT NO.4 WITH VIT K 10 ML, TRACE (CONC-1ML/DOSE) 1 ML in AMINO ACID 4.25%-D10W+L... IV SCH ×3 (05:04)
[2019-10-23] MEDS: AMPICILLIN-SULBACTAM 3 GM in SODIUM CHLORIDE 0.9% 100 ML IVPB SCH ×3 (05:04→17:37)
[2019-10-23] MEDS: ALBUTEROL HFA INHALER INHALATION PRN ×4 (07:52→20:31)
[2019-10-23 08:09] LABS: HCT 33.7 % (34.0-46.0); HGB 10.3 gm/dL (11.4-16.0); Hypochromasia Moderate; MCH 25.1 pg (25.0-35.0); MCHC 30.7 g/dL (31.0-37.0); MCV 81.8 fL (80.0-100.0); Mean Platelet Volume 7.2; Platelet Count 502 k/uL (150-450); RBC 4.11 m/uL (3.80-5.40); RDW 14.3 % (11.5-15.5); WBC 13.3 k/uL (3.8-10.6)
[2019-10-23 08:18] LABS: African American GFR (CKD) >90 (>60 ml/min/1.73 sqM); Anion Gap 7 mmol/L; Blood Urea Nitrogen 21 mg/dL (7-17); Calcium 8.4 mg/dL (8.4-10.2); Carbon Dioxide 31 mmol/L (22-30); Chloride 88 mmol/L (98-107); Glucose 85 mg/dL (74-99); Magnesium 1.8 mg/dL (1.6-2.3); Non-African American GFR(CKD) 86 (>60 ml/min/1.73 sqM); Potassium 4.3 mmol/L (3.5-5.1); Sodium 126 mmol/L (137-145)
[2019-10-23] MEDS: METOPROLOL TARTRATE 50 MG TAB PO SCH ×2 (08:31→21:39)
[2019-10-23] MEDS: FAT EMULSION 20% 250 ML in EMPTY BAG 1 BAG IV SCH (08:31)
[2019-10-23] MEDS: PANTOPRAZOLE 40 MG/10 ML VIAL IVP SCH (08:31)
[2019-10-23] MEDS: VERAPAMIL 40 MG TAB PO SCH ×3 (08:31→21:38)
[2019-10-23] MEDS: ASPIRIN 81 MG PO SCH (08:31)
[2019-10-23] MEDS: ENOXAPARIN 40 MG/0.4 ML SYRINGE SQ SCH (08:32)
--- NOTE | 2019-10-23 09:02 | PN ---
PROGRESS NOTE Mrs. Escobar underwent laparotomy and a bowel resection surgery. NG tube has been out. She is able to take oral medications today. She is in a sinus rhythm with PACs. On reviewing the rhythm strip, she has had mostly multifocal atrial tachycardia and possibly some short runs of atrial fib, but I would not recommend long-term anticoagulation. She is currently in sinus rhythm and a combination of beta blockers and verapamil doing very well. Hemodynamically stable. No chest pain. Vitals are stable. No JVD. S1, S2 heard normally. No significant murmurs. Lungs are clear. Abdomen is soft. From a cardiac standpoint, I would continue current medical regimen and we will continue to follow. MMODL / IJN: [id number] /
--- NOTE | 2019-10-23 11:22 | P.PN ---
Subjective Patient was seen and examined sitting up in bed. She is postoperative day #4 exploratory laparotomy, lysis of adhesion and small bowel resection. She is seen and examined sitting up in bed in no acute distress. She has started passing gas, no bowel movement. Tolerating clear liquid diet with no increasing abdominal pain, no nausea or vomiting. Laboratory data reviewed, WBC 13.3, hemoglobin 10.3, platelets 502, sodium 126, potassium 4.3, creatinine 0.57 and magnesium 1.8. GENERAL: No acute distress. Blood pressure 148/70 heart rate 91 afebrile and maintaining oxygen saturation on nasal cannula. HEENT: Head is atraumatic, normocephalic. Pupils are equal, round. Sclerae anicteric. Conjunctivae are clear. Mucous membranes of the mouth are moist. Neck is supple. ABDOMEN: Soft, nontender. NEUROLOGIC: Patient is awake, alert and oriented x3. ASSESSMENT Small bowel obstruction status post exploratory laparotomy, lysis of adhesions and small bowel resection. Postoperative day #4 Hypokalemia Hyponatremia Hypomagnesemia PLAN Advance to full liquid diet. Continue PPN for now. IV fluids KVO. Lovenox for DVT prophylaxis. Morphine and Zofran for pain and anti-nausea. The above impression and plan of care have been discussed and directed by the signing physician. Marilyn Chang, nurse practitioner, acting as scribe for signing physician. Objective - Vital Signs Vital signs: Vital Signs Temp 97.9 F 10/23/19 04:00 Pulse 79 10/23/19 04:00 Resp 18 10/23/19 04:00 BP 135/78 10/23/19 04:00 Pulse Ox 96 10/23/19 04:00 Intake & Output 10/22/19 10/23/19 10/23/19 18:59 06:59 18:59 Intake Total 3695 2316.083 120 Output Total 2060 1050 Balance 1635 1266.083 120 Weight 35 kg Intake: IV 1658 1360 Ampicillin-Sulbactam 3 gm 100 100 In Sodium Chloride 0.9% 100 ml @ 200 mls/hr IVPB Q12H [facility] Rx#:[id number] Fat Emulsion 20% 250 ml 168 250 In Empty Bag 1 bag @ 21 mls/hr IV DAILY [facility] Rx#: [id number] Invasive Line 1 40 10 Invasive Line 2 60 Magnesium Sulfate-D5w Pmx 200 1 gm In Dextrose/Water 1 100ml.bag @ 100 mls/hr IVPB Q1H [facility] Rx#: [id number] Mvi, Adult No.4 with Vit 440 1000 K 10 ml Trace (Conc-1Ml/ Dose) 1 ml In Amino Acid 4.25%-D10w+Lytes*E* 1,000 ml @ 55 mls/hr IV . [id number] [facility] Rx#:[id number] Potassium Chloride 10 meq 400 In Water For Injection 1 100ml.bag @ 100 mls/hr IVPB Q1HR [facility] Rx#: [id number] Sodium Phosphate 10 mmol 250 In Sodium Chloride 0.9% 250 ml @ 125 mls/hr IVPB ONCE ONE Rx#:[id number] Intake, IV Titration 957 956.083 Amount Mvi, Adult No.4 with Vit 957 956.083 K 10 ml Trace (Conc-1Ml/ Dose) 1 ml In Amino Acid 4.25%-D10w+Lytes*E* 1,000 ml @ 55 mls/hr IV . [id number] [facility] Rx#:[id number] Oral 1080 120 Output: Urine 2060 1050 Uretheral (Frank) 600 Other: Voiding Method Toilet Toilet # Voids 2 0 # Bowel Movements 0 - Labs CBC & Chem 7: 10/23/19 06:50 10/23/19 06:50 Labs: Abnormal Lab Results - Last 24 Hours (Table) 10/22/19 10/22/19 10/23/19 Range/Units 12:02 17:03 00:13 WBC (3.8-10.6) k/uL Hgb (11.4-16.0) gm/dL Hct (34.0-46.0) % MCHC (31.0-37.0) g/dL Plt Count (150-450) k/uL Sodium (137-145) mmol/L Chloride (98-107) mmol/L Carbon Dioxide (22-30) mmol/L BUN (7-17) mg/dL POC Glucose (mg/dL) 125 H 108 H 112 H (75-99) mg/dL 10/23/19 10/23/19 Range/Units 06:50 06:50 WBC 13.3 H (3.8-10.6) k/uL Hgb 10.3 L (11.4-16.0) gm/dL Hct 33.7 L (34.0-46.0) % MCHC 30.7 L (31.0-37.0) g/dL Plt Count 502 H (150-450) k/uL Sodium 126 L (137-145) mmol/L Chloride 88 L (98-107) mmol/L Carbon Dioxide 31 H (22-30) mmol/L BUN 21 H (7-17) mg/dL POC Glucose (mg/dL) (75-99) mg/dL Microbiology - Last 24 Hours (Table) 10/18/19 06:27 Blood Culture - Preliminary Blood No Growth after 120 hours
--- NOTE | 2019-10-23 11:42 | CDI ---
Documentation Clarification Form Date: 10/23/2019 11:09:27 AM From: Zeina Souza RN, CCDS Admit Date: 10/15/2019 10:40:00 PM Patient Name: Nina Escobar Visit Number: [id number] Discharge Date: ATTENTION: The Clinical Documentation Specialists (CDI) and [facility] Coding Staff appreciate your assistance in clarifying documentation. Please respond to the clarification below the line at the bottom and electronically sign. The CDI & [facility] Coding staff will review the response and follow-up if needed. Please note: Queries are made part of the Legal Health Record. If you have any questions, please contact the author of this message via ITS. Dr. Mak Colon The patient presented with abdominal pain ruled in for small bowel obstruction. On 10/18 small bowel resection, lysis of adhesion and further clarification for significance of the lysis of adhesions is requested. History/Risk Factors: Colon Cancer with resection, recurrent small bowel obstructions, Former smoker Clinical Indicators: 84-year-old present to ER on 10/14 with complaints of abdominal pain ruled in for small bowel obstruction. On 10/18 had exploratory laparotomy small bowel resection, lysis of adhesions. In the operative note you have stated upon entering the abdomen adhesions were lysed to the anterior abdominal wall". Treatment: Small bowel resection, Lysis of adhesions NPO, NGT low intermittent suction TPN IV@ 21 MLS HR Unasyn 3 gm IV Q6 hrs CBC, Mg+, Phos Daily Dilaudid 0.5 mg IV q3 HRS PRN pain In your professional opinion, can you please clarify if the lysis of adhesions? Adhesions not extensive or significant Adhesions significant /extensive Other, please specify Unable to determine (Last Revision: October 2017) Adhesions significant MTDD
[2019-10-23 11:46] LABS: Glucose,Whole Blood 109 mg/dL (75-99)
[2019-10-23 13:38] VITALS: BMI 13.2
[2019-10-23 16:57] LABS: Glucose,Whole Blood 94 mg/dL (75-99)
--- NOTE | 2019-10-23 19:28 | P.PN ---
Progress Note - Text Progress Note Date: 10/23/19 Presenting complaint: Abdominal pain Interval history: 84-year-old patient of , transferred from outside facility with a computed tomography scan showing evidence of high-grade small bowel obstruction. Patient not eating for 3 days. NG tube was placed. On October 18 patient was taken to the operating room by Dr. Colon. Found to have small bowel obstruction secondary to internal hernia, lysis of adhesions and a small bowel resection small portion was done. NG tube was placed. Discontinued on October 20 Today-. Sitting up in a chair. Feeling better. Little abdominal pain. Did positive flatus. Advance to full liquid.. Review of systems: Was done for constitutional, cardiovascular, GI, pulmonary. relevant finding as above Active Medications Hydrocodone Bitart/Acetaminophen ([place]ash 5-325) 2 each PO Q6HR PRN PRN Reason: Moderate to Severe Pain Albuterol Sulfate (Ventolin Hfa Inhaler) 2 puff INHALATION RT-Q4H PRN PRN Reason: Shortness Of Breath Or Wheezin Last Admin: 10/23/19 17:06 Dose: 2 puff Documented by: Aspirin (Aspirin) 81 mg PO DAILY [facility] Last Admin: 10/23/19 08:31 Dose: 81 mg Documented by: Atorvastatin Calcium (Lipitor) 10 mg PO HS [facility] Last Admin: 10/22/19 20:46 Dose: 10 mg Documented by: Enoxaparin Sodium (Lovenox) 40 mg SQ DAILY [facility] Last Admin: 10/23/19 08:32 Dose: 40 mg Documented by: Hydromorphone HCl (Dilaudid) 0.5 mg IVP Q3HR PRN PRN Reason: Moderate to Severe Pain Last Admin: 10/20/19 22:49 Dose: 0.5 mg Documented by: Fat Emulsion Intravenous 250 (ml/ IV Solution) 250 mls @ 21 mls/hr IV DAILY [facility] Last Admin: 10/23/19 08:31 Dose: 21 mls/hr Documented by: Parenteral Vitamin Supplement 10 ml/ Chromium/Copper/Manganese/Seleni/Zn 1 ml/Amino Ac/Electrol/Dextrose/Calcium 1,011 mls @ 55 mls/hr IV .[id number] [facility] Stop: 10/23/19 23:59 Last Admin: 10/23/19 05:04 Dose: 55 mls/hr Documented by: Ampicillin Sodium/Sulbactam (Sodium 3 gm/ Sodium Chloride) 100 mls @ 200 mls/hr IVPB Q6H [facility] Last Admin: 10/23/19 17:37 Dose: 200 mls/hr Documented by: Parenteral Vitamin Supplement 10 ml/ Chromium/Copper/Manganese/Seleni/Zn 1 ml/Sodium Chloride 20 meq/Magnesium Sulfate 1 gm/ Amino Ac/Electrol/Dextrose/Calcium 1,021 mls @ 55 mls/hr IV .[id number] [facility] Metoprolol Tartrate (Lopressor) 50 mg PO BID [facility] Last Admin: 10/23/19 08:31 Dose: 50 mg Documented by: Miscellaneous Information (Potassium Per Protocol) 1 each MISCELLANE DAILY PRN; Protocol PRN Reason: Per Protocol Miscellaneous Information (Magnesium Per Protocol) 1 each MISCELLANE DAILY PRN; Protocol PRN Reason: Per Protocol Morphine Sulfate (Morphine Sulfate (Inj)) 4 mg IVP Q4HR PRN PRN Reason: Pain Last Admin: 10/19/19 08:52 Dose: 4 mg Documented by: Naloxone HCl (Narcan) 0.2 mg IV Q2M PRN PRN Reason: Opioid Reversal Last Admin: 10/19/19 23:45 Dose: 0.2 mg Documented by: Ondansetron HCl (Zofran) 4 mg IVP Q6HR PRN PRN Reason: Nausea And Vomiting Last Admin: 10/19/19 08:52 Dose: 4 mg Documented by: Pantoprazole Sodium (Protonix) 40 mg IVP DAILY [facility] Last Admin: 10/23/19 08:31 Dose: 40 mg Documented by: Verapamil HCl (Isoptin) 40 mg PO TID [facility] Last Admin: 10/23/19 15:30 Dose: 40 mg Documented by: On examination: VITAL SIGNS: 97.6, 80, 18, 126/58, 96% on 2 L GENERAL APPEARANCE:, Sitting up in a chair, comfortable HEENT: Normal external appearance of nose and ear. NG tube discontinued EYES: Pupils equal. Conjunctiva pale NECK: JVD not raised. Mass not palpable. RESPIRATORY: Respiratory effort normal. Decreased breath sounds. CARDIOVASCULAR: First and second sounds normal. No edema. ABDOMEN: Soft. Binder in place, some tenderness, bowel sounds present PSYCHIATRY: Answering questions INVESTIGATIONS, reviewed in the clinical context: White count 13.3 sodium 126 potassium 4.3 creatinine 0.57 Previous testin-D echo-EF 55-60% Computed tomography scan of the abdomen-distal small bowel obstruction bilateral effusions with associated ascites right lower lobe bronchiectasis Assessment: -Acute distal small bowel obstruction.-Followed by lysis of adhesions and small portion of small bowel resection -possible aspiration pneumonia -COPD in an ex-smoker -Essential hypertension -Hyperlipidemia -Chronic osteoporosis -Chronic hypoxic respiratory failure on 2 L of oxygen at home -Severe protein calorie malnutrition -Hyponatremia from decreased salt intake Plan: Continue with IV Unasyn. TPN and lipids to continue. Advance to full liquids. Follow labs
[2019-10-23 20:42] LABS: Glucose,Whole Blood 102 mg/dL (75-99)
[2019-10-23] MEDS: ATORVASTATIN 10 MG TAB PO SCH (21:38)
[2019-10-23] MEDS: SODIUM CHLORIDE TAB 1 GM TAB PO SCH (21:40)
--- NOTE | 2019-10-23 23:43 | PN ---
PROGRESS NOTE DATE OF SERVICE: 10/23/2019 REASON FOR FOLLOWUP: Aspiration pneumonia. INTERVAL HISTORY: The patient is currently afebrile. She has been breathing comfortably. Denies having any chest pain. Occasional cough. No nausea, no vomiting. No abdominal pain or diarrhea. PHYSICAL EXAMINATION: Blood pressure 138/81 with a pulse of 68, temperature 97.9. She is 97% on 2 L nasal cannula. General description is an elderly female lying in bed in no distress. RESPIRATORY SYSTEM: Unlabored breathing with decreased breath sounds at the base. No wheeze. HEART: S1, S2. Regular rate and rhythm. ABDOMEN: Soft. No tenderness. LABS: White count 13.3, BUN of 21, creatinine 0.57. DIAGNOSTIC IMPRESSION AND PLAN: Patient admitted to hospital with small bowel obstruction requiring surgery with a component of aspiration pneumonitis. Patient is currently covered with Unasyn; to continue. Transition to oral antibiotic on discharge. Continue with supportive care. MMODL / IJN: [id number] /
[2019-10-24] MEDS ORDERED: MVI, ADULT NO.4 WITH VIT K 10 ML, TRACE (CONC-1ML/DOSE) 1 ML, SODIUM CHLORIDE 2.5MEQ/ML... IV SCH ×5
[2019-10-24] MEDS: AMPICILLIN-SULBACTAM 3 GM in SODIUM CHLORIDE 0.9% 100 ML IVPB SCH ×4 (00:06→18:07)
[2019-10-24 02:51] LABS: Glucose,Whole Blood 92 mg/dL (75-99)
[2019-10-24 06:13] LABS: Glucose,Whole Blood 96 mg/dL (75-99)
[2019-10-24 07:23] LABS: Ionized Calcium 4.7 mg/dL (4.5-5.3)
[2019-10-24 07:32] LABS: African American GFR (CKD) >90 (>60 ml/min/1.73 sqM); Anion Gap 6 mmol/L; Blood Urea Nitrogen 20 mg/dL (7-17); Calcium 8.1 mg/dL (8.4-10.2); Carbon Dioxide 28 mmol/L (22-30); Chloride 92 mmol/L (98-107); Glucose 89 mg/dL (74-99); Magnesium 1.8 mg/dL (1.6-2.3); Non-African American GFR(CKD) 90 (>60 ml/min/1.73 sqM); Potassium 4.3 mmol/L (3.5-5.1); Sodium 126 mmol/L (137-145); Triglycerides 70 mg/dL (<150)
[2019-10-24] MEDS: ALBUTEROL HFA INHALER INHALATION PRN ×2 (07:44→19:47)
[2019-10-24] MEDS: FAT EMULSION 20% 250 ML in EMPTY BAG 1 BAG IV SCH (08:44)
[2019-10-24] MEDS: SODIUM CHLORIDE TAB 1 GM TAB PO SCH ×4 (08:45→20:57)
[2019-10-24] MEDS: ENOXAPARIN 40 MG/0.4 ML SYRINGE SQ SCH (08:45)
[2019-10-24] MEDS: METOPROLOL TARTRATE 50 MG TAB PO SCH ×2 (08:45→20:56)
[2019-10-24] MEDS: ASPIRIN 81 MG PO SCH (08:45)
[2019-10-24] MEDS: VERAPAMIL 40 MG TAB PO SCH ×3 (08:45→20:57)
--- NOTE | 2019-10-24 09:22 | P.PN ---
Subjective This is a pleasant 84-year-old female past medical history significant for colon cancer status post resection, hypertension, dyslipidemia and COPD on home oxygen. 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 She is seen and examined sitting up in the chair in no acute distress. She is tolerating breakfast without difficulty. She denies any symptoms of chest pain, shortness of breath, dizziness or palpitations. Blood pressure 138/67 heart rate 66 afebrile maintaining oxygen saturation on nasal cannula. Laboratory data reviewed, sodium 126, potassium 4.3, creatinine 0.5 and magnesium 1.8. Currently maintained on aspirin 81 mg daily, atorvastatin 10 mg at bedtime, metoprolol 50 mg twice a day and verapamil 40 mg 3 times a day. GENERAL: Well-appearing, well-nourished and in no acute distress. NECK: Supple without JVD or thyromegaly. LUNGS: Breath sounds clear to auscultation bilaterally. Respiration equal and unlabored. No wheezes, rales or rhonchi. HEART: Regular rate and rhythm without murmurs, rubs or gallops. S1 and S2 heard. EXTREMITIES: Normal range of motion, no edema. No clubbing or cyanosis. Peripheral pulses intact. ASSESSMENT Sinus tachycardia with frequent PACs Small bowel obstruction status post resection with lysis of adhesions Hyponatremia Hypertension Dyslipidemia COPD PLAN Continue current medical regimen. Heart rates are well controlled on current dose of verapamil and Lopressor. We will continue to follow as needed, please call with further questions or concerns. Nurse Practitioner note has been reviewed, I agree with a documented findings and plan of care. Patient was seen and examined. Objective - Vital Signs Vital signs: Vital Signs Temp 98.2 F 10/24/19 04:00 Pulse 66 10/24/19 04:00 Resp 17 10/24/19 04:00 BP 138/67 10/24/19 04:00 Pulse Ox 98 10/24/19 04:00 Intake & Output 10/23/19 10/24/19 10/24/19 18:59 06:59 18:59 Intake Total 1548 630 120 Output Total 1550 Balance -2 630 120 Weight 35 kg 45 kg Intake: IV 688 90 Fat Emulsion 20% 250 ml 168 In Empty Bag 1 bag @ 21 mls/hr IV DAILY [facility] Rx#: [id number] Invasive Line 1 40 60 Invasive Line 2 40 30 Mvi, Adult No.4 with Vit 440 K 10 ml Trace (Conc-1Ml/ Dose) 1 ml In Amino Acid 4.25%-D10w+Lytes*E* 1,000 ml @ 55 mls/hr IV . [id number] [facility] Rx#:[id number] Oral 860 540 120 Output: Urine 1550 Other: Voiding Method Toilet Bedside Commode # Voids 0 1 1 # Bowel Movements 1 - Labs CBC & Chem 7: 10/23/19 06:50 10/24/19 06:45 Labs: Abnormal Lab Results - Last 24 Hours (Table) 10/23/19 10/23/19 10/24/19 Range/Units 11:33 20:41 06:45 Sodium 126 L (137-145) mmol/L Chloride 92 L (98-107) mmol/L BUN 20 H (7-17) mg/dL Creatinine 0.50 L (0.52-1.04) mg/dL POC Glucose (mg/dL) 109 H 102 H (75-99) mg/dL Calcium 8.1 L (8.4-10.2) mg/dL Microbiology - Last 24 Hours (Table) 10/18/19 06:27 Blood Culture - Final Blood No Growth after 144 hours
[2019-10-24 09:38] LABS: HCT 29.6 % (34.0-46.0); HGB 9.3 gm/dL (11.4-16.0); Hypochromasia Moderate; MCH 25.7 pg (25.0-35.0); MCHC 31.5 g/dL (31.0-37.0); MCV 81.7 fL (80.0-100.0); Mean Platelet Volume 7.5; Platelet Count 516 k/uL (150-450); RBC 3.63 m/uL (3.80-5.40); RDW 14.3 % (11.5-15.5); WBC 10.9 k/uL (3.8-10.6)
--- NOTE | 2019-10-24 10:09 | P.PN ---
Subjective Progress Note Date: 10/24/19 Principal diagnosis: Small bowel obstruction Patient doing better today. She did have a bowel movement. Tolerating full liquids. Minimal pain. Objective - Vital Signs Vital signs: Vital Signs Temp 97.6 F 10/24/19 08:44 Pulse 60 10/24/19 08:44 Resp 16 10/24/19 08:45 BP 138/60 10/24/19 08:44 Pulse Ox 97 10/24/19 08:44 Intake & Output 10/23/19 10/24/19 10/24/19 18:59 06:59 18:59 Intake Total 1548 630 210 Output Total 1550 1 Balance -2 630 209 Weight 35 kg 45 kg Intake: IV 688 90 10 Fat Emulsion 20% 250 ml 168 In Empty Bag 1 bag @ 21 mls/hr IV DAILY [facility] Rx#: [id number] Invasive Line 1 40 60 Invasive Line 2 40 30 10 Mvi, Adult No.4 with Vit 440 K 10 ml Trace (Conc-1Ml/ Dose) 1 ml In Amino Acid 4.25%-D10w+Lytes*E* 1,000 ml @ 55 mls/hr IV . [id number] [facility] Rx#:[id number] Oral 860 540 200 Output: Urine 1550 Stool 1 Other: Voiding Method Toilet Bedside Commode Bedside Commode # Voids 0 1 1 # Bowel Movements 1 - Exam Abdomen: Soft, nondistended, dressing clean dry, minimal tenderness - Labs CBC & Chem 7: 10/24/19 06:45 10/24/19 06:45 Labs: Abnormal Lab Results - Last 24 Hours (Table) 10/23/19 10/23/19 10/24/19 Range/Units 11:33 20:41 06:45 WBC (3.8-10.6) k/uL RBC (3.80-5.40) m/uL Hgb (11.4-16.0) gm/dL Hct (34.0-46.0) % Plt Count (150-450) k/uL Sodium 126 L (137-145) mmol/L Chloride 92 L (98-107) mmol/L BUN 20 H (7-17) mg/dL Creatinine 0.50 L (0.52-1.04) mg/dL POC Glucose (mg/dL) 109 H 102 H (75-99) mg/dL Calcium 8.1 L (8.4-10.2) mg/dL 10/24/19 Range/Units 06:45 WBC 10.9 H (3.8-10.6) k/uL RBC 3.63 L (3.80-5.40) m/uL Hgb 9.3 L (11.4-16.0) gm/dL Hct 29.6 L (34.0-46.0) % Plt Count 516 H (150-450) k/uL Sodium (137-145) mmol/L Chloride (98-107) mmol/L BUN (7-17) mg/dL Creatinine (0.52-1.04) mg/dL POC Glucose (mg/dL) (75-99) mg/dL Calcium (8.4-10.2) mg/dL Microbiology - Last 24 Hours (Table) 10/18/19 06:27 Blood Culture - Final Blood No Growth after 144 hours Assessment and Plan (1) Bowel obstruction Narrative/Plan: Will advance diet at this time. Discontinue TPN. Continue physical therapy. Current Visit: Yes Status: Acute Code(s): K56.609 - UNSP INTESTNL OBST, UNSP TO PARTIAL VERSUS COMPLETE OBST SNOMED Code(s): 88429634
[2019-10-24 12:11] LABS: Glucose,Whole Blood 89 mg/dL (75-99)
[2019-10-24 16:45] LABS: Glucose,Whole Blood 84 mg/dL (75-99)
--- NOTE | 2019-10-24 16:51 | P.PN ---
Progress Note - Text Progress Note Date: 10/24/19 Presenting complaint: Abdominal pain Interval history: 84-year-old patient of , transferred from outside facility with a computed tomography scan showing evidence of high-grade small bowel obstruction. Patient not eating for 3 days. NG tube was placed. On October 18 patient was taken to the operating room by Dr. Colon. Found to have small bowel obstruction secondary to internal hernia, lysis of adhesions and a small bowel resection small portion was done. NG tube was placed. Discontinued on October 20 Today-. sitting up in a chair. Had a small emesis this morning. Did tolerate her breakfast. Full liquids minimal abdominal pain.. Review of systems: Was done for constitutional, cardiovascular, GI, pulmonary. relevant finding as above Active Medications Hydrocodone Bitart/Acetaminophen (Marcella 5-325) 2 each PO Q6HR PRN PRN Reason: Moderate to Severe Pain Albuterol Sulfate (Ventolin Hfa Inhaler) 2 puff INHALATION RT-Q4H PRN PRN Reason: Shortness Of Breath Or Wheezin Last Admin: 10/24/19 07:44 Dose: 2 puff Documented by: Aspirin (Aspirin) 81 mg PO DAILY [facility] Last Admin: 10/24/19 08:45 Dose: 81 mg Documented by: Atorvastatin Calcium (Lipitor) 10 mg PO HS [facility] Last Admin: 10/23/19 21:38 Dose: 10 mg Documented by: Enoxaparin Sodium (Lovenox) 40 mg SQ DAILY [facility] Last Admin: 10/24/19 08:45 Dose: 40 mg Documented by: Hydromorphone HCl (Dilaudid) 0.5 mg IVP Q3HR PRN PRN Reason: Moderate to Severe Pain Last Admin: 10/20/19 22:49 Dose: 0.5 mg Documented by: Ampicillin Sodium/Sulbactam (Sodium 3 gm/ Sodium Chloride) 100 mls @ 200 mls/hr IVPB Q6H [facility] Last Admin: 10/24/19 14:05 Dose: 200 mls/hr Documented by: Metoprolol Tartrate (Lopressor) 50 mg PO BID [facility] Last Admin: 10/24/19 08:45 Dose: 50 mg Documented by: Miscellaneous Information (Potassium Per Protocol) 1 each MISCELLANE DAILY PRN; Protocol PRN Reason: Per Protocol Miscellaneous Information (Magnesium Per Protocol) 1 each MISCELLANE DAILY PRN; Protocol PRN Reason: Per Protocol Morphine Sulfate (Morphine Sulfate (Inj)) 4 mg IVP Q4HR PRN PRN Reason: Pain Last Admin: 10/19/19 08:52 Dose: 4 mg Documented by: Naloxone HCl (Narcan) 0.2 mg IV Q2M PRN PRN Reason: Opioid Reversal Last Admin: 10/19/19 23:45 Dose: 0.2 mg Documented by: Ondansetron HCl (Zofran) 4 mg IVP Q6HR PRN PRN Reason: Nausea And Vomiting Last Admin: 10/19/19 08:52 Dose: 4 mg Documented by: Sodium Chloride (Sodium Chloride Tab) 1 gm PO QID [facility] Last Admin: 10/24/19 16:20 Dose: 1 gm Documented by: Verapamil HCl (Isoptin) 40 mg PO TID [facility] Last Admin: 10/24/19 16:21 Dose: 40 mg Documented by: On examination: VITAL SIGNS: 97.2, 65, 18, 115/64, 100 percent on 2 L GENERAL APPEARANCE:, Sitting up in a chair, comfortable HEENT: Normal external appearance of nose and ear. NG tube discontinued EYES: Pupils equal. Conjunctiva pale NECK: JVD not raised. Mass not palpable. RESPIRATORY: Respiratory effort normal. Decreased breath sounds. CARDIOVASCULAR: First and second sounds normal. No edema. ABDOMEN: Soft. Binder in place, some tenderness, bowel sounds present PSYCHIATRY: Answering questions INVESTIGATIONS, reviewed in the clinical context: white count 10.9 hemoglobin 9.3 progression 4.3 creatinine 0.50 Previous testin-D echo-EF 55-60% Computed tomography scan of the abdomen-distal small bowel obstruction bilateral effusions with associated ascites right lower lobe bronchiectasis Assessment: -Acute distal small bowel obstruction.-Followed by lysis of adhesions and small portion of small bowel resection -possible aspiration pneumonia -COPD in an ex-smoker -Essential hypertension -Hyperlipidemia -Chronic osteoporosis -Chronic hypoxic respiratory failure on 2 L of oxygen at home -Severe protein calorie malnutrition -Hyponatremia from decreased salt intake Plan: Continue with IV Unasyn. TPN and lipids discontinued . Taking full liquids. Discussed with patient.
[2019-10-24] MEDS: ONDANSETRON 4 MG/2 ML VIAL IVP PRN (20:24)
[2019-10-24] MEDS: HYDROmorphone 0.5 MG/0.5 ML SYRINGE IVP PRN (20:24)
[2019-10-24] MEDS: ATORVASTATIN 10 MG TAB PO SCH (20:57)
--- NOTE | 2019-10-25 00:02 | PN ---
PROGRESS NOTE DATE OF SERVICE: 10/24/2019 REASON FOR FOLLOWUP: Possible aspiration pneumonia. INTERVAL HISTORY: The patient is currently afebrile, has been breathing comfortably. Denies any chest pain, cough, some abdominal discomfort and no diarrhea. PHYSICAL EXAMINATION: Blood pressure 132/75 with a pulse of 87, temperature 98.2. She is 98% on 2 L nasal cannula. General description is an elderly female up in the bed in no distress. Respiratory system: Unlabored breathing. Decreased intensity in breath sounds. No wheeze. HEART: S1, S2. Regular rate and rhythm. Abdomen soft, no tenderness. LABS: Hemoglobin 9.1, white count 10.9, creatinine 0.50. DIAGNOSTIC IMPRESSION AND PLAN: Patient admitted to hospital with small bowel obstruction, failing medical therapy, status post laparotomy, resection and anastomosis and concern for aspiration pneumonia. The patient is currently doing well on Unasyn to continue. Transition to oral antibiotics once oral intake improves. Continue supportive care. MMODL / IJN: [id number] /
[2019-10-25] MEDS: AMPICILLIN-SULBACTAM 3 GM in SODIUM CHLORIDE 0.9% 100 ML IVPB SCH ×3 (01:26→13:14)
[2019-10-25 07:13] LABS: African American GFR (CKD) >90 (>60 ml/min/1.73 sqM); Anion Gap 4 mmol/L; Blood Urea Nitrogen 17 mg/dL (7-17); Calcium 8.4 mg/dL (8.4-10.2); Carbon Dioxide 32 mmol/L (22-30); Chloride 93 mmol/L (98-107); Glucose 81 mg/dL (74-99); Magnesium 1.7 mg/dL (1.6-2.3); Non-African American GFR(CKD) 89 (>60 ml/min/1.73 sqM); Phosphorus 3.6 mg/dL (2.5-4.5); Potassium 4.7 mmol/L (3.5-5.1); Sodium 129 mmol/L (137-145)
[2019-10-25] MEDS: SODIUM CHLORIDE TAB 1 GM TAB PO SCH ×2 (08:14→13:14)
[2019-10-25] MEDS: VERAPAMIL 40 MG TAB PO SCH (08:14)
[2019-10-25] MEDS: ENOXAPARIN 40 MG/0.4 ML SYRINGE SQ SCH (08:14)
[2019-10-25] MEDS: METOPROLOL TARTRATE 50 MG TAB PO SCH (08:14)
[2019-10-25] MEDS: ASPIRIN 81 MG PO SCH (08:14)
[2019-10-25] MEDS: ALBUTEROL HFA INHALER INHALATION PRN (11:17)
--- NOTE | 2019-10-25 11:24 | P.PN ---
Subjective Progress Note Date: 10/25/19 Principal diagnosis: Small bowel obstruction Patient doing well today. She is passing a large volume of flatus. No bowel movement. Tolerating diet. She would like to go home soon. Objective - Vital Signs Vital signs: Vital Signs Temp 96.2 F L 10/25/19 04:30 Pulse 62 10/25/19 08:13 Resp 20 10/25/19 04:30 BP 126/63 10/25/19 04:30 Pulse Ox 97 10/25/19 04:30 Intake & Output 10/24/19 10/25/19 10/25/19 18:59 06:59 18:59 Intake Total 1165.167 300 Output Total 1 Balance 1164.167 300 Intake: IV 20 Invasive Line 2 20 Intake, IV Titration 405.167 Amount Mvi, Adult No.4 with Vit 405.167 K 10 ml Trace (Conc-1Ml/ Dose) 1 ml Sodium Chloride 2.5MEQ/ml Vial 20 meq Magnesium Sulfate gm 1 gm In Amino Acid 4. 25%-D10w+Lytes*E* 1,000 ml @ 55 mls/hr IV . [id number] [facility] Rx#:[id number] Oral 740 300 Output: Stool 1 Other: Voiding Method Bedside Commode Bedside Commode # Voids 1 1 # Bowel Movements 1 - Exam Abdomen: Soft, nondistended, incision clean and dry, nontender - Labs CBC & Chem 7: 10/24/19 06:45 10/25/19 06:44 Labs: Abnormal Lab Results - Last 24 Hours (Table) 10/25/19 Range/Units 06:44 Sodium 129 L (137-145) mmol/L Chloride 93 L (98-107) mmol/L Carbon Dioxide 32 H (22-30) mmol/L Microbiology - Last 24 Hours (Table) 10/18/19 06:27 Blood Culture - Final Blood No Growth after 144 hours Assessment and Plan (1) Bowel obstruction Narrative/Plan: Continue diet as tolerated. Continue ambulation. Possible discharge later today or tomorrow. Current Visit: Yes Status: Acute Code(s): K56.609 - UNSP INTESTNL OBST, UNSP TO PARTIAL VERSUS COMPLETE OBST SNOMED Code(s): 10023420
[2019-10-25 15:02] VITALS: BP 134/72; PULSE 70; RESP 15; TEMP 97.4
--- NOTE | 2019-10-25 16:58 | P.DS ---
Providers Date of admission: 10/15/19 22:40 Expected date of discharge: 10/25/19 Attending physician: Landry Phillips Consults: 10/15/19 23:54 Consult Physician Routine Consulting Provider: Mak Colon Consult Reason/Comments: sbo,known Do you want consulting provider notified?: Yes 10/16/19 04:25 Consult Physician Routine Consulting Provider: Dorothea Cano Consult Reason/Comments: suspected COVID Do you want consulting provider notified?: Yes, Notify in am 10/18/19 10:05 Consult Physician Routine Consulting Provider: Anmol Skinner Consult Reason/Comments: new onset atrial fib Do you want consulting provider notified?: Yes Primary care physician: Ganesh Merbeatriz [facility] Course: Presenting complaint: Abdominal pain Interval history: 84-year-old patient of , transferred from outside facility with a computed tomography scan showing evidence of high-grade small bowel obstruction. Patient not eating for 3 days. NG tube was placed. On October 18 patient was taken to the operating room by Dr. Colon. Found to have small bowel obstruction secondary to internal hernia, lysis of adhesions and a small bowel resection small portion was done. NG tube was placed. Discontinued on October 20 Today-. Had a bowel movement. Tolerating a diet. Seen by surgery. Cleared - discharged... Consultation: Dr. Colon from surgery On examination: VITAL SIGNS: 97.4, 70, 15, 134/72, [place] percent on 2 L GENERAL APPEARANCE:, Sitting up in a chair, comfortable HEENT: Normal external appearance of nose and ear. NG tube discontinued EYES: Pupils equal. Conjunctiva pale NECK: JVD not raised. Mass not palpable. RESPIRATORY: Respiratory effort normal. Decreased breath sounds. CARDIOVASCULAR: First and second sounds normal. No edema. ABDOMEN: Soft. Binder in place, minimal tenderness, bowel sounds present PSYCHIATRY: Answering questions INVESTIGATIONS, reviewed in the clinical context: Potassium 4.7 creatinine 0.5 to white count 10.9 hemoglobin 9.3 today tired Previous testin-D echo-EF 55-60% Computed tomography scan of the abdomen-distal small bowel obstruction bilateral effusions with associated ascites right lower lobe bronchiectasis Assessment: -Acute distal small bowel obstruction.-Followed by lysis of adhesions and small portion of small bowel resection -possible aspiration pneumonia -COPD in an ex-smoker -Essential hypertension -Hyperlipidemia -Chronic osteoporosis -Chronic hypoxic respiratory failure on 2 L of oxygen at home -Severe protein calorie malnutrition -Hyponatremia from decreased salt intake Disposition: Home Patient Condition at Discharge: Stable Plan - Discharge Summary Discharge Rx Participant: No New Discharge Prescriptions: New Amoxicillin/Potassium Clav [Augmentin 875-125 Tablet] 1 tab PO Q12HR #10 tab Verapamil [Isoptin] 40 mg PO TID #90 tab Metoprolol Tartrate [Lopressor] 50 mg PO BID #60 tab Continue Simvastatin [Zocor] 10 mg PO HS Multivitamins, Thera [Multivitamin (formulary)] 1 tab PO DAILY Calcium Carbonate/Vitamin D3 [Caltrate 600 Plus D3 Tablet] 1 tab PO BID Ergocalciferol [Vitamin D2 (DRISDOL)] 50,000 unit PO QMONTH Aspirin EC [Ecotrin Low Dose] 81 mg PO DAILY #1 tablet. Polyethylene Glycol 3350 [Miralax] 17 gm PO BID Ipratropium-Albuterol Nebulize [Duoneb 0.5 mg-3 mg/3 ml Soln] 3 ml INHALATION RT-QID Ibuprofen [Motrin] 400 mg PO Q8HR PRN PRN Reason: Pain Ferrous Sulfate [Iron (65 MG Elemental)] 325 mg PO DAILY Discontinued Lisinopril [Zestril] 2.5 mg PO HS Discharge Medication List Calcium Carbonate/Vitamin D3 [Caltrate 600 Plus D3 Tablet] 1 tab PO BID 04/21/14 [History] Ergocalciferol [Vitamin D2 (DRISDOL)] 50,000 unit PO QMONTH 04/21/14 [History] Multivitamins, Thera [Multivitamin (formulary)] 1 tab PO DAILY 04/21/14 [History] Simvastatin [Zocor] 10 mg PO HS 04/21/14 [History] Aspirin EC [Ecotrin Low Dose] 81 mg PO DAILY #1 tablet. 04/22/14 [Rx] Ferrous Sulfate [Iron (65 MG Elemental)] 325 mg PO DAILY 10/15/19 [History] Ibuprofen [Motrin] 400 mg PO Q8HR PRN 10/15/19 [History] Ipratropium-Albuterol Nebulize [Duoneb 0.5 mg-3 mg/3 ml Soln] 3 ml INHALATION RT-QID 04/02/20 [History] Polyethylene Glycol 3350 [Miralax] 17 gm PO BID 10/15/19 [History] Amoxicillin/Potassium Clav [Augmentin 875-125 Tablet] 1 tab PO Q12HR #10 tab 10/25/19 [Rx] Metoprolol Tartrate [Lopressor] 50 mg PO BID #60 tab 10/25/19 [Rx] Verapamil [Isoptin] 40 mg PO TID #90 tab 10/25/19 [Rx] Follow up Appointment(s)/Referral(s): [facility], [NON-STAFF] - Elvin Bell MD [Primary Care Provider] - 1-2 days Mak Colon MD [STAFF PHYSICIAN] - 1 Week Activity/Diet/Wound Care/Special Instructions: Postop orders per surgery Soft bland diet Discharge Disposition: HOME SELF-CARE
== END 2019-10-25 15:40 | disposition home health service (06) | DRG 329 ==
LOC: EC 22:15 → 5NMEDONC 22:40 → 4SSUR 10-16 01:37 → 5NMEDONC 10-16 22:25 → 3SCARD 10-18 13:22 → 6NMEDSUR 10-24 10:48
PROVIDERS: ADMIT Hospitalist; ATTEND Hospitalist
PROC: 3E0336Z Introduction of Nutritional Substance into Peripheral Vein, Percutaneous Approach (ICD-10-PCS; 2019-10-16)
PROC: 0DB80ZZ Excision of Small Intestine, Open Approach (ICD-10-PCS; principal; 2019-10-19 07:30)
PROC: 0DNW0ZZ Release Peritoneum, Open Approach (ICD-10-PCS; principal; 2019-10-19 07:30)
DX: K46.0 Unspecified abdominal hernia with obstruction, without gangrene (principal); E43 Unspecified severe protein-calorie malnutrition; J69.0 Pneumonitis due to inhalation of food and vomit; E87.1 Hypo-osmolality and hyponatremia; I47.1 Supraventricular tachycardia; J96.11 Chronic respiratory failure with hypoxia; R18.8 Other ascites; Z68.1 Body mass index [BMI] 19.9 or less, adult; K66.0 Peritoneal adhesions (postprocedural) (postinfection); Z20.828 Contact with and (suspected) exposure to other viral communicable diseases; D64.9 Anemia, unspecified; I49.1 Atrial premature depolarization; D72.810 Lymphocytopenia; E78.5 Hyperlipidemia, unspecified; E83.42 Hypomagnesemia; E86.0 Dehydration; E87.6 Hypokalemia; I10 Essential (primary) hypertension; I48.91 Unspecified atrial fibrillation; J44.9 Chronic obstructive pulmonary disease, unspecified; M81.0 Age-related osteoporosis without current pathological fracture; Z79.82 Long term (current) use of aspirin; Z79.899 Other long term (current) drug therapy; Z85.038 Personal history of other malignant neoplasm of large intestine; Z85.828 Personal history of other malignant neoplasm of skin; Z86.73 Personal history of transient ischemic attack (TIA), and cerebral infarction without residual deficits; Z87.891 Personal history of nicotine dependence; Z99.81 Dependence on supplemental oxygen; Z90.49 Acquired absence of other specified parts of digestive tract; Z87.01 Personal history of pneumonia (recurrent); Z82.3 Family history of stroke
CPT/HCPCS: 71045; 74177; 80048; 80053; 82330; 82550; 82728; 83605; 83615; 83735; 84100; 84132; 84478; 85025; 85027; 85379; 86140; 86850; 86900; 86901; 87040; 87502; 87635; 88307; 93005; 93306; 94640; 96374; 99285